=== PATIENT | male | born 1985 | race Caucasian/White ===

== ENCOUNTER → 2017-11-23 09:50 | Outpatient (CLI) | payer OTHER, SELFPAY ==
[2017-11-23 12:43] LABS: Anion Gap 7 (5-15); BUN 10 mg/dL (7-18); BUN/Creat Ratio 9.7 RATIO (10-20); Calcium,Total 9.2 mg/dL (8.5-10.1); Chloride 105 mmol/L (98-107); Cholesterol 210 mg/dL (200); Creatinine, Serum 1.03 mg/dL (0.70-1.30); EST Glomerular Filtration Rate 89 mL/min (>60); Est Glom Filt Rate - Afr Amer 108 mL/min (>60); Glucose 89 mg/dL (74-106); High Density Lipoprotein 35 mg/dL; Potassium 4.6 mmol/L (3.5-5.1); Sodium Level 139 mmol/L (136-145); Triglycerides 186 mg/dL; Very Low Density Lipoprotein 37 mg/dL (5-40)
== END ==
PROVIDERS: Family Provider Family Medicine; PCP Family Medicine; Visit Provider Family Medicine
DX: I10 Essential (primary) hypertension (principal)
CPT/HCPCS: 36415; 80048; 80061

== ENCOUNTER → 2018-12-19 | Outpatient (CLI) | payer OTHER, SELFPAY ==
[2015-11-01 14:53] VITALS: BMI 23.7
[2018-12-19 18:25] LABS: Anion Gap 11 (5-15); BUN 17 mg/dL (7-18); BUN/Creat Ratio 15.5 RATIO (10-20); Calcium,Total 8.8 mg/dL (8.5-10.1); Chloride 105 mmol/L (98-107); Cholesterol 201 mg/dL (200); EST Glomerular Filtration Rate 82 mL/min (>60); Est Glom Filt Rate - Afr Amer 99 mL/min (>60); Glucose 91 mg/dL (74-106); High Density Lipoprotein 32 mg/dL; Potassium 4.1 mmol/L (3.5-5.1); Sodium Level 142 mmol/L (136-145); Triglycerides 378 mg/dL; Very Low Density Lipoprotein 76 mg/dL (5-40)
== END | disposition home or self-care (01) ==
LOC: MFPLAB 16:40
PROVIDERS: Family Provider Family Medicine; PCP Family Medicine; Referring Provider Family Medicine; Visit Provider Family Medicine
DX: I10 Essential (primary) hypertension (principal); E78.5 Hyperlipidemia, unspecified
CPT/HCPCS: 36415; 80048; 80061

== ENCOUNTER → 2019-08-03 | Outpatient (CLI) | payer OTHER, SELFPAY ==
[2015-11-01 14:53] VITALS: BMI 23.7
[2019-08-03 12:30] LABS: Absolute Lymphocyte Count 1.72 X10^3/uL (0.83-4.51); Absolute Neutrophil Count 1.3 X10^3/uL (2.0-7.7); Basophil# 0.01 X10^3/uL; Basophil% 0.3 % (0-1); Eosinophil# 0.03 X10^3/uL; Eosinophils% 0.9 % (0-5); Hematocrit 47.4 % (40-54); Hemoglobin 15.9 g/dL (13.0-16.5); Lymphocyte # 1.72 X10^3/ul (4.0); Lymphocyte % 50.3 % (19-41); Mean Corp Hgb Conc 33.5 g/dL (32-36); Mean Corpuscular Hgb 29.3 pg (27.0-32.0); Mean Corpuscular Volume 87.3 fL (80-94); Mean Platelet Vol. 9.9 fl (6.2-12.0); Monocyte# 0.33 X10^3/uL; Monocyte% 9.6 % (0-10); NRBC Flagged by Analyzer 0 % (0-5); Neutrophil # 1.33 X10^3/uL (2.7-7.7); Neutrophil % 38.9 % (47-70); Platelet Count 239 K/mm3 (150-450); RBC Distribution Width CV 12.4 % (11.6-14.6); RBC Distribution Width SD 39.8 fl (35.1-43.9); Red Blood Count 5.43 M/mm3 (4.6-6.2); White Blood Count 3.4 K/mm3 (4.4-11.0)
[2019-08-03 12:44] LABS: Anion Gap 4 (5-15); BUN 12 mg/dL (7-18); BUN/Creat Ratio 12.8 RATIO (10-20); Calcium,Total 9.4 mg/dL (8.5-10.1); Chloride 106 mmol/L (98-107); Creatinine, Serum 0.94 mg/dL (0.70-1.30); EST Glomerular Filtration Rate 99 mL/min (>60); Est Glom Filt Rate - Afr Amer 120 mL/min (>60); Glucose 84 mg/dL (74-106); Potassium 4.4 mmol/L (3.5-5.1); Sodium Level 138 mmol/L (136-145)
== END | disposition home or self-care (01) ==
LOC: MFPLAB 10:01
PROVIDERS: PCP Family Medicine; Referring Provider Family Medicine; Visit Provider Family Medicine
DX: I10 Essential (primary) hypertension (principal); F32.9 Major depressive disorder, single episode, unspecified
CPT/HCPCS: 36415; 80048; 85025

== ENCOUNTER → 2020-07-14 10:13 | Outpatient (CLI) | payer OTHER, SELFPAY ==
[2015-11-01 14:53] VITALS: BMI 23.7
[2020-07-14 12:56] LABS: Anion Gap 5 (5-15); BUN 11 mg/dL (7-18); BUN/Creat Ratio 10.6 RATIO (10-20); Calcium,Total 9.2 mg/dL (8.5-10.1); Chloride 104 mmol/L (98-107); Cholesterol 230 mg/dL (200); Creatinine, Serum 1.04 mg/dL (0.70-1.30); EST Glomerular Filtration Rate 87 mL/min (>60); Est Glom Filt Rate - Afr Amer 105 mL/min (>60); Glucose 86 mg/dL (74-106); High Density Lipoprotein 37 mg/dL; Potassium 4.2 mmol/L (3.5-5.1); Sodium Level 137 mmol/L (136-145); Triglycerides 161 mg/dL; Very Low Density Lipoprotein 32 mg/dL (5-40)
== END ==
PROVIDERS: PCP Family Medicine; Referring Provider Family Medicine; Visit Provider Family Medicine
DX: I10 Essential (primary) hypertension (principal)
CPT/HCPCS: 36415; 80048; 80061

== ENCOUNTER → 2022-04-19 | Outpatient (CLI) | payer OTHER, SELFPAY ==
[2022-04-19 12:59] LABS: AST(SGOT) 19 U/L (15-37); Alanine Aminotransfer ALT/SGPT 38 U/L (16-61); Anion Gap 8 (5-15); BUN 12 mg/dL (7-18); BUN/Creat Ratio 12.4 RATIO (10-20); Calcium,Total 9.2 mg/dL (8.5-10.1); Chloride 105 mmol/L (98-107); Cholesterol 140 mg/dL (200); Creatinine, Serum 0.97 mg/dL (0.70-1.30); EST Glomerular Filtration Rate 93 mL/min (>60); Est Glom Filt Rate - Afr Amer 113 mL/min (>60); Glucose 97 mg/dL (74-106); High Density Lipoprotein 49 mg/dL; Potassium 4.2 mmol/L (3.5-5.1); Sodium Level 140 mmol/L (136-145); Triglycerides 118 mg/dL; Very Low Density Lipoprotein 24 mg/dL (5-40)
[2022-04-19 13:36] LABS: Microalbumin,Random Urine < 5.0 mg/L (NO RANGE EST.)
== END | disposition home or self-care (01) ==
PROVIDERS: PCP Family Medicine; Referring Provider Family Medicine; Visit Provider Family Medicine
DX: I10 Essential (primary) hypertension (principal); E78.5 Hyperlipidemia, unspecified
CPT/HCPCS: 36415; 80048; 80061; 82043; 82570; 84450; 84460

== ENCOUNTER → 2023-04-25 | Outpatient (CLI) | payer OTHER, SELFPAY ==
[2023-04-25 12:41] LABS: AST(SGOT) 21 U/L (15-37); Alanine Aminotransfer ALT/SGPT 38 U/L (16-61); Anion Gap 3 (5-15); BUN 13 mg/dL (7-18); BUN/Creat Ratio 13.6 RATIO (10-20); Calcium,Total 9.5 mg/dL (8.5-10.1); Chloride 104 mmol/L (98-107); Cholesterol 147 mg/dL (200); Creatinine, Serum 0.96 mg/dL (0.70-1.30); EST Glomerular Filtration Rate 94 mL/min (>60); Est Glom Filt Rate - Afr Amer 114 mL/min (>60); Glucose 95 mg/dL (74-106); High Density Lipoprotein 45 mg/dL; Potassium 4.5 mmol/L (3.5-5.1); Sodium Level 137 mmol/L (136-145); Triglycerides 192 mg/dL; Very Low Density Lipoprotein 38 mg/dL (5-40)
[2023-04-25 13:16] LABS: Microalbumin,Random Urine < 5.0 mg/L (NO RANGE EST.)
== END | disposition home or self-care (01) ==
LOC: MFPLAB 10:30
PROVIDERS: PCP Family Medicine; Visit Provider Family Medicine
DX: I10 Essential (primary) hypertension (principal); E78.5 Hyperlipidemia, unspecified
CPT/HCPCS: 36415; 80048; 80061; 82043; 82570; 84450; 84460

== ENCOUNTER 2023-06-17 05:52 | Day surgery (SDC) | payer OTHER, SELFPAY ==
[2023-06-17] MEDS: Lactated Ringers 1,000 ML 15 ML IV (06:37)
[2023-06-17 06:39] VITALS: BP 124/89; PULSE 81; RESP 16; TEMP 36.5; O2SAT 97; BMI 28.0
[2023-06-17] MEDS: Clindamycin 900 MG/50 ML BAG 75 MG IV (07:28)
--- NOTE | 2023-06-17 07:30 | LIP_PTH ---
PATIENT: MING AGUSTIN [place] [facility] [id number] AGE/SX: 38/M ROOM: RE06/17/[address]: Dr. Trey Yoon MD : 1985 BED: DIS: 06/17/2023 SPEC #: [id number] RECD: 06/17/23 11:06 STATUS: JENNIE ENRIQUEZJaylen #: [id number] OLAMIDE: 06/17/23 07:[address]: Trey Yoon DEPT: SURGICAL PATHOLOGY RECD BY: Nasrin Daniel ENTERED: 06/17/23 11:48 SP TYPE: LIPOMA OTHR DR: Dr. Zaida Lancaster MD Tissues: Soft tissues, NOS Procedures: Surgery Specimen Level III HEADER OPERATION: Excision lipoma right inner thigh PRE-OP DIAGNOSIS: Lipoma right inner thigh TISSUE SUBMITTED: Right inner thigh subcutaneous mass MICROSCOPIC DIAGNOSIS Soft tissue mass of right inner thigh, excision: Mature adipose tissue consistent with lipoma. AM:benson 06/21/2023 MICROSCOPIC DESCRIPTION Slides are reviewed. GROSS DESCRIPTION Received in fixative is one container labeled with the patient's name and designated right inner thigh mass. The specimen consists of an irregular fragment of yellow fatty tissue measuring 4.8 x 3.5 x 1.5 cm. Serial sections reveal yellow cut surfaces. No myxoid change or hemorrhage is identified. 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 / AM:benson 06/17/2023 TC:1 CPT: 05685
--- NOTE | 2023-06-17 07:33 | PCM.HP.BLA ---
History and Physical Date of Admission: 06/17/23 MR#: [id number] Acct: [id number] Name: MING FIGUEROA Rep #: [id number] : 1985 Provider: Dr. 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 Trey Yoon MD) Depression High cholesterol HTN (hypertension) Surgical History (Updated 05/17/23 @ 08:35 by Lazara Lagos) S/P arthroscopic knee surgery S/P hernia repair Family History (Updated 05/17/23 @ 08:36 by Lazara Lagos) Mother Breast cancer HypertensionGrandfather Bleeding disorder HypertensionGrandmother Breast cancer HypertensionUncle Cancer lung Social History (Updated 05/17/23 @ 08:36 by Lazara Lagos) Smoking Status: Never smoker alcohol intake: current HPI HPI HPI: Patient is a 37-year-old male who presents for thigh lipoma. He is referred from Dr. Lancaster. He states that he first noticed this issue about a month ago as he was simply rubbing his thigh. He denies any pain or symptoms. He raised his concern to Dr. Lancaster and she informed it was likely a lipoma and recommended he consider removal for the potential for growth and eventual discomfort. For his part, Mr. 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 He confirms that he has not had any prior such lesions and denies any drainage or redness from the present area of concern. Mr. Figueroa takes medications only for diagnoses of high blood pressure, high cholesterol, and depression. He does not have any prescriptions for blood thinners. There is no known history of allergies to local anesthetic. ROS General General: No weight change, appetite, fatigue, colon cancer, breast cancer or weakness HEENT HEENT: No difficulty swallowing, eye injury, eye surgery, swollen glands or hoarseness Endo Endocrine: No thyroid disease, diabetes mellitus, thyroid cancer, Hair loss, heat intolerance or cold intolerance Skin Skin: No rash or changing moles Breast Breast: No left breast lump, right breast lump, nipple discharge, breast pain, abnormal mammogram, abnormal US or breast enlargement Musc Musculoskeletal: No back problems, arthritis, rheumatoid arthritis, gout or joint pain Cardio Cardiovascular: No murmur, pacemaker, heart disease, atrial fibrillation, high blood pressure, heart attack, heart stent, palpitations, shortness of breat with exertion or chest pain Psych Psychiatric: No depression, anxiety or hearing voices Resp Respiratory: No shortness of breath, No sleep apnea, No cough, No COPD, No asthma, No emphysema and No wheezing Gastro Gastrointestinal: No abdominal pain, No nausea or vomiting, No diarrhea, No constipation, No blood in stool, No acid reflux, No hemorrhoids, No ulcers, No gallbladder problem and No black,tarry stools Sudhakar Hematologic: No blood thinners, No blood disorders, No bleeding, No anemia and No blood clots Neuro Neurologic: No system reviewed and no additional complaints, except as documented, No as per HPI, No abnormal gait, No abnormal hearing, No abnormal movements, No abnormal speech, No behavioral changes, No burning sensations, No confusion, No convulsions, No disequilibrium, No dizziness, No localized weakness, No frequent falls, No headache(s), No lack of coordination, No loss of vision, No memory loss, No numbness, No other visual disturbances, No radicular pain, No restless legs, No sensory deficit, No syncope, No tingling, No tremor(s), No weakness and No other Exam Const General: cooperative, healthy appearing, comfortable and no acute distress Orientation: alert, awake and oriented x3 Resp Effort & Inspection: normal respiratory effort Extrem Other: Right inner thigh soft, subcutaneous mass estimated at 4 cm in diameter by palpation. Ultrasound is applied to the area and patient has a circumscribed, hypoechoic area with some internal texture suggesting probable lipoma. This area is located just deep to the dermis and at its greatest depth extends only 1 cm. It measures approximately 3 x 4 cm. Assessment and Plan Assessment and Plan (1) Lipoma of right thigh: Status: Acute Comment: This is a 37-year-old male who presents for incidentally noted right thigh lipomatous mass that is presently asymptomatic. 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 On exam this is a very superficial, semimobile mass approximately 4 cm in diameter that is located on the inner posterior aspect of the proximal thigh. Given this sensitive location I have recommended we plan for excision under MAC sedation in the OR to maximize patient's comfort. 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 Mr. Figueroa wishes to get a little further through the harvest before he proceeds with this excision but plans to schedule today. Plan: Plan for excision of right thigh lipoma under MAC sedation at first mutually available date. I have examined the patient and the H&P has been reviewed. There are no clinical changes since date of exam. Procedure and post procedure expectations were reviewed. Patient and his spouse had a few questions regarding activity restrictions which were answered. Proceed to the operating room for excision of right thigh lipoma under MAC sedation.
[2023-06-17] MEDS: Bupivacaine 0.25% 30 ML Vial (07:47)
--- NOTE | 2023-06-17 08:06 | PCM.OPRPT ---
Report of Operation Date of Procedure: 06/17/23 Pre-Operative Diagnosis: Right inner thigh lipoma Post-Operative Diagnosis: Same Surgery/Procedure Performed:: Excision of right inner thigh subcutaneous mass Surgeon: Trey Yoon metal patternmaker apprentice: Julian Hernandez Type of Anesthesia: MAC/Supplemental Anesthesiologist: Yaakov Shelley Specimen's removed: Right thigh subcutaneous mass Drains: None Estimated Blood Loss (mL): 2 Description of Procedure: After appropriate identification the preoperative holding area patient was brought to the operating room where he was positioned in a supine position. There he was administered a local MAC. Preoperative antibiotics were infused. He was then repositioned frog-leg to the right and was prepped and draped in usual sterile fashion. A formal timeout followed to confirm both patient and procedure. After instilling local anesthetic (0.5% bupivacaine plain), I then made a transverse incision 3 cm long along the mid aspect of the patient's lipomatous mass. This was carried deeply through the tissue with use of electrocautery to maintain hemostasis as we proceeded. I then visualized the lipomatous subcutaneous mass and used a combination of sharp and blunt dissection to free this mass from the surrounding soft tissue. Selective electrocautery was used to maintain hemostasis. As the lipomatous mass was being elevated the more tenuous attachments were also divided with electrocautery. Mass was then completely extirpated and passed off the operative field for pathology. The resulting cavity was inspected for hemostasis and was found to be largely intact aside from a few isolated skin bleeders which were promptly addressed with electrocautery. The cavity was irrigated and then closed in layers. The deep dermal tissues was closed using 3-0 Vicryl and the skin was closed in a subcuticular fashion using 4-0 Monocryl. Dermabond was applied for a dressing and the patient's sedation was lightened and he was transferred to the PACU bed for his ongoing care. Complications None Procedures Integumentary 114x: [id number] Exc tr-ext b9+savita 2.1-3cm/<
--- NOTE | 2023-06-17 08:08 | DCINST_ITS ---
Discharge Instructions Diet Discharge Diet: No restrictions Activity Discharge Activity: May Shower May shower in (days): 1 Ice area for (Minutes): 20 Dressing / Incision Call your doctor if your incision/area has: Increased Pain/ Swelling, Increased Redness, Foul Smelling Discharge and Swelling at the incision site Call your doctor if you observe: Fever of 101 or Higher Remove Dressing in: do not remove dressing (Dermabond (surgical glue) expected to dissolve spontaneously within 7 to 10 days postop using regular showering) Cleanse incision/area with: Soap & Water Follow Up Care Please Follow Up With: Trey Yoon MD When: 2 weeks postop Test Results: Test results from this visit will be discussed in further detail at your follow- up appointment, if applicable. Discharge Plan Admission Primary Reason for Your Visit: Excision of right thigh mass Attending Provider: Trey Yoon Primary Care Provider: Zaida Lancaster Discharge Orders/Prescriptions Prescriptions: Continued rosuvastatin 10 mg tablet 10 mg PO QHS Patient Comments: take 1 tablet by mouth at bedtime lisinopril 10 mg tablet 10 mg PO DAILY Patient Comments: take 1 tablet by mouth once daily escitalopram oxalate 10 mg tablet 10 mg PO DAILY Patient Comments: take 1 tablet by mouth once daily Referrals / Follow Up: Zaida Lancaster MD [Primary Care Provider] - Disposition Disposition (needs filled in before D/C Order can be placed): Home, Self Care
[2023-06-17 08:13] VITALS: BP 105/69; BP 124/89; PULSE 78; RESP 16; TEMP 36.6; O2SAT 97
[2023-06-17 08:16] VITALS: BP 111/65; BP 124/89; PULSE 78; RESP 16; O2SAT 97
[2023-06-17 08:20] VITALS: BP 104/67; BP 124/89; PULSE 72; RESP 16; O2SAT 100
[2023-06-17 08:23] VITALS: BP 116/85; BP 124/89; PULSE 75; RESP 16; TEMP 36.6; O2SAT 100
[2023-06-17 08:37] VITALS: BP 124/89
== END 2023-06-17 08:59 | disposition home or self-care (01) ==
LOC: SDC 05:59 → AC 06:09
PROVIDERS: PCP Family Medicine; Referring Provider Surgery; Visit Provider Surgery
PROC: (CPT 27337; principal; 2023-06-17 07:15)
DX: D17.23 Benign lipomatous neoplasm of skin and subcutaneous tissue of right leg (principal); I10 Essential (primary) hypertension; F32.A Depression, unspecified; E78.00 Pure hypercholesterolemia, unspecified; Z79.899 Other long term (current) drug therapy
CPT/HCPCS: 27337; 00400; 88304; J7120; J2405

== ENCOUNTER 2023-10-24 10:00 | Outpatient (RCR) | payer OTHER, SELFPAY ==
--- NOTE | 2023-08-22 13:48 | HP.PTEVAL ---
Patient's Visit Information Visit Information Visit Information: MING AGUSTIN is a 38 year old M referred to Physical Therapy by Dr. Zaida Lancaster MD with a diagnosis of LEFT HAMSTRING STRAIN. Date of Evaluation: 08/22/23 Physical Therapist: Bret Watson, PT, Cert MDT, OCS Visit Plan Frequency: 2x /Week Duration: 6 Weeks Plan: PT INTERVETIONS JOSE LUIS EX'S, FELXABLITY ,ANR STRETCHING ,DLS ,POSTURAL EX'S ,MANUAL THERAPY AND MODALTIES Subjective Subjective: This 38 y/o male presents to physical therapy with left hamstring strain. Patient developed left hamstring pain `~ 6weeks . Initially patient had pain in back pain, then symptoms became worse in left hamstrings and glut. Patient has seen chiropractor and did some adjustment. Pain located left hamstrings and lateral knee. Aggravating factors sitting , bending, lifting ,standing increases low back pain and walking unbale to take a full stride. Patient has tingling in buttock . Patient had pain bending over such as putting on sock. Coughing/sneezing+ . Bowel/bladder -. Sleeping in recliner but in bed unable to lay flat. Patient has no injury or trauma. Patient has h/o back pain. Chiropractor did x-rays. Patient condition affects QOL and function/job demands. Patient goals to decrease pain. 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 Left Lower Extremity: Pain Intensity (Out of 10): 5 Pain Intensity Range: 10 Objective Objective: POSTURE: mild forward posture GAIT: reciprocal pattern slight decrease stride length left side NEURO: c/o paresthesia/tingling ,reflexes L3-4,L4-5,L5-S1 3/3 PALAPTION: unremarkable LUMBAR ROM: flexion mod loss pain ,extension WNL ,side glides WFL MMT: quads 4-/5 due to + ANR left side ,left hamstrings/hips ,ankle 4/ 5,right 4/5 Special Tests L/S Slump test left side: Positive L/S Slump test right side: Negative L/S Left Straight Leg Raise: Negative L/S Right Straight Leg Raise: Positive Lumbar Standing: Flexion - Mechanical Response: No effect Lumbar Standing: Flexion - Symptoms During Testing: Increases Lumbar Standing: Flexion - Symptoms After Testing: Worse Lumbar Standing: Extension - Mechanical Response: No effect Lumbar Standing: Extension - Symptoms During Testing: Decreases Lumbar Standing: Extension - Symptoms After Testing: No better Lumbar Standing: Right Side Glides - Mechanical Response: No effect Lumbar Standing: Right Side [place] - Symptoms During Testing: No effect Lumbar Standing: Right Side [place] - Symptoms After Testing: No effect Lumbar Standing: Left Side [place] - Mechanical Response: No effect Lumbar Standing: Left Side [place] - Symptoms During Testing: No effect Lumbar Standing: Left Side [place] - Symptoms After Testing: No effect Lumbar Lying: Flexion - Mechanical Response: No effect Lumbar Lying: Flexion - Symptoms During Testing: Increases Lumbar Lying: Flexion - Symptoms After Testing: No worse Lumbar Lying: Extension - Mechanical Response: No effect Lumbar Lying: Extension - Symptoms During Testing: Decreases Lumbar Lying: Extension - Symptoms After Testing: Better Balance/Special Test Scores Oswestry Low Back Score: 19 Goals Goal 1:: Patient to be I with HEP for back Goal Time Frame: 4-6 Weeks Goal 2:: Patient to improve posture/body mechanics 90% Goal Time Frame: 4-6 Weeks Goal 3:: 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 Goal Time Frame: 4-6 Weeks Goal 4:: Patient to resolve ANR left leg to improve ADLS and lifting Goal Time Frame: 4-6 Weeks Goal 5:: Patient to demonstrate 60% improvement with job demands and ADLS Goal Time Frame: 4-6 Weeks Goal 6:: Patient to improve back oswestry score by 5 points to improve QOL Goal Time Frame: 4-6 Weeks Rehabilitation Potential Physical Therapy Diagnosis: This patient has derangement above knee with disc involvement with + ANR pain with positioning and motion test worse with bending ,standing sitting affects ADL and housework tasks along david demands thus benefit from skilled PT Rehabilitation Potential: Good Anticipated Interventions Patient/Client Instruction: Educate patient on: Condition and Plan of Care For the Purpose of:: To decrease pain, To decrease swelling/inflammation, To improve muscle performance and motor function, To increase tolerance to activity/condition/position, To improve ability of physical actions for home/community/work/leisure, To improve health of tissue, To decrease soft tissue restriction and To increase flexibility/ROM Therapeutic Exercise to Include: Strength training, Body mechanics, Postural training, Flexibilty training, Dynamic Lumbar Stabilization and Jose Luis Exercises For the Purpose of:: To decrease pain, To increase ROM, To improve muscle performance and motor function, To improve ability to perform ADL's, To increase tolerance to activity/condition/position, To improve ability of physical actions for home/community/work/leisure, To improve health of tissue, To decrease soft tissue restriction, To increase flexibility/ROM and To reduce risk of recurrence Manual Therapy Techniques to Include: Mobilization Comment: LUMBAR For the Purpose of:: To decrease pain, To increase ROM, To improve health of tissue and To decrease soft tissue restriction TENS: Yes IF ES: Yes Cryotherapy (ice pack, ice massage): Yes Thermo therapy (hot pack): Yes Ultrasound (thermal/non thermal): Yes For the Purpose of:: To decrease pain, To increase ROM, To improve nutrient delivery to tissue, To increase oxygenation perfusion, To improve health of tissue and To decrease soft tissue restriction Text: Thank you for the opportunity to evaluate your patient. For Medicare and Medicare HMO plans, please review the plan of care and approve it. It will need to be FAXED BACK to us at [phone] for Medicare purposes. For Medicare only, by signing this I certify the plan of care. Please let me know if there are questions or concerns regarding this plan of care. Physician Signature: Date:
--- NOTE | 2024-02-03 13:37 | HP.PTDCSUM ---
Discharge Summary D/C summary: It has been my pleasure to treat MING AGUSTIN referred by Dr. Zaida Lancaster MD, with the diagnosis of LEFT HAMSTRING STRAIN for a total of 11 visit(s). Discharge Date: Please see the following information for a summary of their discharge status. 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 Thank you for the referral of this patient. Sincerely, Bret Watson, PT, Cert MDT, OCS Balance/Gait/Functional tests Balance/Special Test Scores Oswestry Low Back Score: 4 Improvement % Improvement: 80
== END 2023-10-24 19:00 | disposition home or self-care (01) ==
LOC: PT 10:00
PROVIDERS: PCP Family Medicine; Referring Provider Family Medicine; Visit Provider Family Medicine
DX: S76.312D Strain of muscle, fascia and tendon of the posterior muscle group at thigh level, left thigh, subsequent encounter (principal)
CPT/HCPCS: 97110; 97161; 97530

== ENCOUNTER 2024-03-22 05:47 | Day surgery (SDC) | payer OTHER, SELFPAY ==
--- NOTE | 2024-03-08 13:26 | EKG12_ITS ---
Test Reason : PRE OP Blood Pressure : / mmHG Vent. Rate : 091 BPM Atrial Rate : 091 BPM P-R Int : 146 ms QRS Dur : 082 ms QT Int : 356 ms P-R-T Axes : 057 033 047 degrees QTc Int : 437 ms Normal sinus rhythm Normal ECG Confirmed by MANI RUANO, BRENTON ([id number]), advertising editor MENA RAMIRES ([id number]) on 03/09/2024 10:48:41 AM Referred By: James Aleman Confirmed By:BRENTON SINGLETON MD
--- NOTE | 2024-03-08 13:33 | RAD_ITS ---
STUDY: X-RAY CHEST REASON FOR EXAM: Male, 38 years old. PREOP TECHNIQUE: PA and lateral views of the chest. COMPARISON: Comparison is made with prior study May 18, 2007. FINDINGS: The lungs are clear and expanded. There is no demonstrated pleural abnormality. Normal size heart. Normal mediastinum and marie. Normal visualized pulmonary arteries. Normal visualized aortic arch and descending thoracic aorta. Normal visualized thoracic spine. Normal visualized ribs, clavicles, and shoulders. There is no demonstrated abnormality of the visualized soft tissue structures of the upper abdomen. RAD/Chest PA and Lateral IMPRESSION: Normal x-ray examination of the chest. Electronically Signed: Taras Miguel MD at 14:52 EDT ,
[2024-03-08 14:41] LABS: Absolute Lymphocyte Count 1.53 X10^3/uL (0.83-4.51); Absolute Neutrophil Count 2.5 X10^3/uL (2.0-7.7); Basophil# 0.02 X10^3/uL; Basophil% 0.4 % (0-1); Eosinophils% 2.2 % (0-5); Hematocrit 42.9 % (40-54); Hemoglobin 14.4 g/dL (13.0-16.5); Lymphocyte # 1.53 X10^3/ul (0.83-4.51); Lymphocyte % 33.9 % (19-41); Mean Corp Hgb Conc 33.6 g/dL (32-36); Mean Corpuscular Hgb 28.8 pg (27.0-32.0); Mean Corpuscular Volume 85.8 fL (80-94); Mean Platelet Vol. 9.7 fl (6.2-12.0); Monocyte# 0.39 X10^3/uL; Monocyte% 8.6 % (0-10); NRBC Flagged by Analyzer 0 % (0-5); Neutrophil # 2.46 X10^3/uL (2.7-7.7); Neutrophil % 54.7 % (47-70); Platelet Count 225 K/mm3 (150-450); RBC Distribution Width SD 40.3 fl (35.1-43.9); White Blood Count 4.5 K/mm3 (4.4-11.0)
[2024-03-08 14:46] LABS: Partial Thromboplast Time 27.8 Seconds (24.1-36.2); Prothrombin Time (Protime)PT. 13.3 SECONDS (11.7-14.9)
[2024-03-08 14:56] LABS: Anion Gap 6 (5-15); BUN 12 mg/dL (7-18); BUN/Creat Ratio 11.7 RATIO (10-20); Calcium,Total 9.4 mg/dL (8.5-10.1); Chloride 105 mmol/L (98-107); Creatinine, Serum 1.03 mg/dL (0.70-1.30); EST Glomerular Filtration Rate 86 mL/min (>60); Est Glom Filt Rate - Afr Amer 104 mL/min (>60); Glucose 116 mg/dL (74-106); Potassium 3.9 mmol/L (3.5-5.1); Sodium Level 137 mmol/L (136-145)
[2024-03-22] VITALS (8 sets, daily range): BP systolic 116–126; BP diastolic 76–89; PULSE 76–96; RESP 16–18; TEMP 36.6–36.8; O2SAT 96–100; BMI 28.0
--- NOTE | 2024-03-22 06:30 | RAD_ITS ---
STUDY: X-RAY - LUMBAR SPINE REASON FOR EXAM: Male, 38 years old. L5-S1 LAMINOTOMY DISCECTOMY, POSS LAMINECTOMY, LEFT TECHNIQUE: 1 view(s) of the lumbar spine were obtained. COMPARISON: None FINDINGS: Fluoroscopy of the lumbar spine was utilized for underlying laminectomy and a single image cement for interpretation.. RAD/Spine 1 View Any Level IMPRESSION: Fluoroscopy during surgery. Electronically Signed: Joe Francis MD at 8:52 EDT ,
[2024-03-22] MEDS: Lactated Ringers 1,000 ML 15 ML IV (06:32)
--- NOTE | 2024-03-22 07:00 | OP.PCM_ITS ---
Report of Operation Date of Procedure: 03/22/24 Description of Surgical Findings:: REPORT OF OPERATION PREOPERATIVE DIAGNOSES: 1. Lumbar stenosis, L5-S1 with spondylosis. 2. Lumbar disc herniation L5-S1, LEFT. POSTOPERATIVE DIAGNOSES: 1. Lumbar stenosis, L5-S1 with spondylosis. 2. Lumbar disc herniation L5-S1, LEFT. PROCEDURE PERFORMED: 1. Bilateral L5-S1 Laminotomy, foraminotomy 2. Left L5-S1 discectomy. STATEMENT OF MEDICAL NECESSITY: The patient is a 38-year-old male with intractable back and leg pain. Image studies confirm above diagnosis. The patient has opted for operative intervention, understanding the risks to include, but not limited to infection, bleeding, damage to nerves, arteries, and veins, possibility of spinal fluid leak, nonunion, hardware failure, continued pain, need for further surgery, deep vein thrombosis, pulmonary embolism, heart attack, risk of stroke, or . DESCRIPTION OF PROCEDURE: The patient was identified in the preoperative holding area. There, he received the preoperative IV antibotics and then transferred to the operating suite. Once in the operating suite, after general endotracheal anesthesia was established, the patient was transferred to the [place] operating table in the prone position. All bony prominences were padded accordingly. The lumbar spine was prepped and draped in standard surgical fashion. Midline incision was made and taken down to the lumbodorsal fascia. This was divided and subperiosteal dissection taken down to the level of the bilateral L5-S1 facet joints. Deep retractors were placed. A bertha was used to thin the lamina and then a series of Kerrisons and rongeurs was used to perform a bilateral L5-S1 laminotomy and foraminotomy. The dura and nerve root were identified and retracted medially. A large subligamentous disc herniation was identified. A knife was used to perform an annulotomy at L5-S1 on the left and a large subligamentous disc was removed using pituitaries, any loose fragments were identified and removed and the wound was irrigated. Tissel was placed over the dura as a hemostatic agent. The fascia was closed with #1 Vicryl, subcutaneous with 2-0 Vicryl, skin was closed with 2-0 nylon. Sterile dressing was applied with 4 x 4, ABD, and tape. Sponge, instrument, and needle counts were correct at the end of the case. The patient was extubated, taken to PACU without incident. Surgeon: James Aleman Type of Anesthesia: General Estimated Blood Loss (mL): 20cc Fluids Replaced: 1700c Complications None Admit VTE Documentation VTE Present on Admission: No
--- NOTE | 2024-03-22 07:04 | PCM.PN.ORT ---
Subjective Subjective Seen and examined postop. Resting comfortably. Pain controlled. No complaints Objective Data Objective Data Vital Signs: Vital Signs Temp Pulse Resp BP Pulse Ox O2 Del Method 98 F 76 18 126/89 H 98 Room Air 03/22/24 06:33 03/22/24 06:33 03/22/24 06:33 03/22/24 06:33 03/22/24 06:33 03/22/24 06:33 Oxygen Delivery Method Room Air Weight: 207 lb 3.752 oz Body Mass Index (BMI) 28.0 Lab / Micro Data 03/08/24 13:47 03/08/24 13:47 Micro: Microbiology 03/08/24 13:47 Swab (Method) Nasal Screen MRSA/MSSA - Final Physical Exam Const alert, oriented x3 and no apparent distress General Appearance: cooperative, comfortable and well kempt HEENT normocephalic and head/scalp atraumatic Eyes EOMs intact bilaterally and conjunctivae normal Neck full ROM General: normal visual inspection Chest inspection of chest normal and palpation of chest normal Resp normal respiratory effort and normal air movement Cardio regular rate, regular rhythm and peripheral pulses 2+ throughout GI soft to palpation, non-tender and non-distended Back/Spine Back/Spine Narrative: Dressing clean dry and intact Cervical Spine: cervical ROM normal Thoracic Spine / Upper Back: normal to inspection Lumbar Spine / Lower Back: normal to inspection Extremity normal to inspection, full ROM, normal capillary refill, no clubbing, cyanosis or edema and no calf tenderness Skin no rashes or lesions noted General Skin Exam: no breakdown Neuro oriented x3, CN's II-XII intact bilaterally, moves all extremities, no focal motor deficits, no sensory deficits noted and deep tendon reflexes 2+ bilaterally Motor Exam: strength 5/5 throughout and muscle tone normal throughout Assessment & Plan Assessment/Plan (1) Lumbar disc herniation: PLAN: Okay to discharge See discharge instructions Follow-up with Dr. Aleman in 3 weeks
--- NOTE | 2024-03-22 07:30 | PCM.PRE.AN2 ---
ASA Classification* ASA Classification ASA Classification: 2 Assessment & Plan Anesthesia* Anesthesia Assessment Anesthesia Assessment: Discussed sedation and/or anesthesia options, risks, benefits, and alternatives with patient/parents/legal guardian/POA. Questions invited. The patient/parents/legal guardian/POA seems to understand and agrees to proceed with anesthesia plan. Reviewed the physical assessment, medical history, allergy history and patient home medications list prior to surgery/procedure/anesthetic and documented any changes. Performed airway and anesthesia risk assessments. Anesthesia Type Anesthesia Type: General (see written pre anesthesia record for full assessment) Anesthesia Focused Assessment* Temperature: 98 F Pulse Rate: 76 Blood Pressure: 126/89 Respiratory Rate: 18 Pulse Ox: 98 Airway Assessment Mouth opens: >3 cm Mallampati Score: II Focused Labs Anesthesia Preop lab: CBC WBC 4.5 K/mm3 (4.4-11.0) 03/08/24 13:47 RBC 5.00 M/mm3 (4.6-6.2) 03/08/24 13:47 Hgb 14.4 g/dL (13.0-16.5) 03/08/24 13:47 Hct 42.9 % (40-54) 03/08/24 13:47 Plt Count 225 K/mm3 (150-450) 03/08/24 13:47 CHEMISTRY Potassium 3.9 mmol/L (3.5-5.1) 03/08/24 13:47 Sodium 137 mmol/L (136-145) 03/08/24 13:47 BUN 12 mg/dL (7-18) 03/08/24 13:47 Creatinine 1.03 mg/dL (0.70-1.30) 03/08/24 13:47 Glucose 116 mg/dL (74-106) H 03/08/24 13:47 COAG PT 13.3 SECONDS (11.7-14.9) 03/08/24 13:47 Pre-Assessment Diagnosis/Proposed Procedure Planned Operative Procedure(s): (L) Lumbar 5 - Sacral 1 Laminotomy Discectomy, Possible Laminectomy Anesthesia History Anesthesia History - certified residential medication aide: Anesthesia History - certified residential medication aide Hx Hospitalization No 03/06/24 13:23 Any Problems With Anesthesia No 03/06/24 13:23 Cholinesterase deficiency No 03/06/24 13:23 You/Your Family Experience No 03/06/24 13:23 fever (hyperthermia) with Relationship Recent Exposure to Contagious No 03/22/24 06:33 Disease Does patient have nerve No 03/06/24 13:23 stimulator Patient instructed to have device shut off --Does patient have Pacemaker No 03/22/24 06:33 or ICD? When Was Last Pacemaker Check QUESTION #4 FULL TEXT: You/Your Family Experience fever (hyperthermia) with Anesthesia Last Oral Intake Last Oral intake: Last Oral Intake NPO since 22:00 03/22/24 06:33 Meds taken in AM with sips of Yes 03/22/24 06:33 water? Meds patient instructed to lisinopril, 03/22/24 06:33 take am of surgery escitalopram PONV PONV - certified residential medication aide: PONV - certified residential medication aide Female No 03/06/24 13:23 HX of Motion Sickness No 03/06/24 13:23 HX of N/V After Surgery No 03/06/24 13:23 Non-Smoker Yes 03/06/24 13:23 Duration of Surgery greater Yes 03/06/24 13:23 than 60 minutes Number of Risk Factors 2 03/06/24 13:23 PONV Score Moderate Risk 03/06/24 13:23 Height & Weight Height & Weight: Anesthesia: Height & Weight Height 6 ft 03/22/24 06:33 Weight: 94 kg 03/22/24 06:33 Body Mass Index (BMI) 28.0 03/22/24 06:33 Respiratory Assessment Respiratory Assessment - certified residential medication aide: Respiratory Tract Infection Hx - certified residential medication aide Hx Respiratory Tract Infection No 03/06/24 13:23 STOP Sleep Apnea STOP Sleep Apnea - certified residential medication aide: STOP Sleep Apnea - certified residential medication aide Hx Hypertension Yes: CONTROLLED WITH MED 03/06/24 13:23 Hx Sleep Apnea No 03/06/24 13:23 CPAP No 06/17/23 08:13 BIPAP Do you snore loudly (louder No 03/06/24 13:23 than talking or can be heard Do you often feel tired/ No 03/06/24 13:23 fatigued/ sleepy during daytime? Has anyone observed you stop No 03/06/24 13:23 breathing during sleep? STOP Results Negative 03/06/24 13:23 QUESTION #5 FULL TEXT : Do you snore loudly (louder than talking or can be heard through closed doors)? 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 Specify any problems Hx of Preganancy in last 3 N/A 03/06/24 13:23 Months Nurse Filling Out Transfusion NBUCHER 03/06/24 13:23 & Questions: Date: 03/06/24 03/06/24 13:23 Time: 13:24 03/06/24 13:23 Patient unable to answer at this time (ie. confused, unrespo /Reproduction History /Reproductive History - certified residential medication aide: /Reproductive Hx- certified residential medication aide Hx Now No 03/06/24 13:23 Gestational Age (in weeks): EDC: Hx Hx Para Hx Section SAB No 03/06/24 13:23 Active Medications Active Medications: Current Medications Generic Name Dose Route Start Last Admin Trade Name Freq PRN Reason Stop Dose Admin Clindamycin Phosphate 600 mg in 50 mls @ 100 mls/hr 03/22/24 07:30 Cleocin IV 03/22/24 07:59 PREOP ONE Lactated Ringer's 1,000 mls @ 15 mls/hr 03/22/24 06:15 03/22/24 06:32 IV 15 mls/hr .Q48H PATRICIA Administration PFSH Medical History Anxiety Alcohol use Migraine headache Vaso-vagal reaction Syncope Non-smoker Depression High cholesterol HTN (hypertension) Home Medications ?Medication ?Instructions ?Recorded ?Last Taken ?Type escitalopram oxalate 10 mg tablet 10 mg PO DAILY 05/17/23 03/22/24 History lisinopril 10 mg tablet 10 mg PO DAILY 05/17/23 03/22/24 History rosuvastatin 10 mg tablet 10 mg PO QHS 05/17/23 03/21/24 History hydrocodone-acetaminophen 5-325mg 1 tab PO Q6H 7 days #28 tabs 03/22/24 Unknown Rx 5mg-325mg Allergy/AdvReac Type Severity Reaction Status Date / Time amoxicillin Allergy Mild Rash Verified 03/22/24 06:30 Family History Mother Breast cancer Hypertension Grandfather Bleeding disorder Hypertension Grandmother Breast cancer Hypertension Uncle Cancer lung Surgical History S/P excision of lipoma S/P hernia repair S/P arthroscopic knee surgery Social History Smoking Status: Never smoker alcohol intake: current Review of Systems (Anesthesia) ROS Narrative System reviewed and no additional complaints, except as documented.
[2024-03-22] MEDS: Clindamycin 600 MG/50 ML BAG 100 MG IV (07:35)
[2024-03-22] MEDS: THROMBIN (RECOMBINANT) 20,000 UNIT VIAL 20000 UNIT TOPICAL (08:20)
[2024-03-22] MEDS: Bupivacaine 0.25% 30 ML Vial (09:26)
--- NOTE | 2024-03-22 09:50 | PCM.POST.ANE ---
Anesthesia: Postop Eval I Current Vital Signs Temperature: 98.2 F Pulse Rate: 96 Blood Pressure: 116/81 Respiratory Rate: 16 Pulse Ox: 100 Oxygen Delivery Method: Room Air Assessment Airway patent: Yes Spontaneous unlabored respirations: Yes Mental status: Awake and Calm nausea: No Vomiting: No Anesthesia Complication: No Fluid Hydration Crystalloid volume administer (ml): 1,700 Total IV fluid infused: 1,700 Progress Note Anesthesia document: Postop Eval 1 completed: Yes
--- NOTE | 2024-03-22 10:20 | POSTOPAN2_ITS ---
Anesthesia Postop Eval I Sum Postop Eval Completion status Anesthesia document: Postop Eval 1 completed: Yes Anesthesia Postop Eval I Summary Anesthesia Postop Eval I Summary: Anesthesia Postop Eval I: Assessment Summary Airway patent Yes 03/22/24 09:58 PULP PRESS [email or web address].[email or web address] Spontaneous unlabored Yes 03/22/24 09:58 PULP PRESS TENDER.GDOTT respirations Mental status Awake,Calm 03/22/24 09:58 PULP PRESS TENDER.GDOTT nausea No 03/22/24 09:58 PULP PRESS TENDER.GDOTT Vomiting No 03/22/24 09:58 PULP PRESS TENDER.GDOTT Anesthesia Postop Eval I: Fluid Summary Crystalloid volume administer 1,700 03/22/24 09:58 PULP PRESS TENDER.GDOTT (ml) Colloids volume administered ( ml) Blood Product volume administered (ml) Total IV fluid infused 1,700 03/22/24 09:58 PULP PRESS TENDER.GDOTT Anesthesia Postop Eval I: Summary Notes Anesthesia Complication No 03/22/24 09:58 PULP PRESS TENDER.GDOTT Anesthesia Complication Comment: Post-operative progress note Anesthesia: Postop Eval II Evaluation Mental status: Awake Pain Level: 0 nausea: No Vomiting: No
--- NOTE | 2024-03-22 10:20 | PCM.POSTANE2 ---
Anesthesia Postop Eval I Sum Postop Eval Completion status Anesthesia document: Postop Eval 1 completed: Yes Anesthesia Postop Eval I Summary Anesthesia Postop Eval I Summary: Anesthesia Postop Eval I: Assessment Summary Airway patent Yes 03/22/24 09:58 MARBLE INSTALLER SUPERVISOR.GDOTT Spontaneous unlabored Yes 03/22/24 09:58 MARBLE INSTALLER SUPERVISOR.GDOTT respirations Mental status Awake,Calm 03/22/24 09:58 MARBLE INSTALLER SUPERVISOR.GDOTT nausea No 03/22/24 09:58 MARBLE INSTALLER SUPERVISOR.GDOTT Vomiting No 03/22/24 09:58 MARBLE INSTALLER SUPERVISOR.GDOTT Anesthesia Postop Eval I: Fluid Summary Crystalloid volume administer 1,700 03/22/24 09:58 MARBLE INSTALLER SUPERVISOR.GDOTT (ml) Colloids volume administered ( ml) Blood Product volume administered (ml) Total IV fluid infused 1,700 03/22/24 09:58 MARBLE INSTALLER SUPERVISOR.GDOTT Anesthesia Postop Eval I: Summary Notes Anesthesia Complication No 03/22/24 09:58 MARBLE INSTALLER SUPERVISOR.GDOTT Anesthesia Complication Comment: Post-operative progress note Anesthesia: Postop Eval II Evaluation Mental status: Awake Pain Level: 0 nausea: No Vomiting: No
[2024-03-22] MEDS: HYDROcodone Bitartrate/Apap 5/325 Tablet PO (10:41)
== END 2024-03-22 11:40 | disposition home or self-care (01) ==
LOC: SDC 05:49 → AC 05:49
PROVIDERS: PCP Family Medicine; Referring Provider Orthopaedic Surgery; Visit Provider Orthopaedic Surgery
PROC: (CPT 63030; principal; 2024-03-22 07:00)
DX: M47.817 Spondylosis without myelopathy or radiculopathy, lumbosacral region (principal); M48.061 Spinal stenosis, lumbar region without neurogenic claudication; M51.27 Other intervertebral disc displacement, lumbosacral region; G89.29 Other chronic pain; I10 Essential (primary) hypertension; E78.00 Pure hypercholesterolemia, unspecified; G47.00 Insomnia, unspecified; Z88.0 Allergy status to penicillin; Z79.899 Other long term (current) drug therapy
CPT/HCPCS: 63030; 00630; 36415; 71046; 72020; 76000; 80048; 85025; 85610; 85730; 87081; 93005; J7120; J2405

== ENCOUNTER 2024-04-05 08:38 | Day surgery (SDC) | payer OTHER, SELFPAY ==
[2024-04-05] VITALS (10 sets, daily range): BP systolic 99–127; BP diastolic 62–86; PULSE 72–107; RESP 16–18; TEMP 36.2–37.3; O2SAT 93–100; BMI 27.1
[2024-04-05] MEDS: Lactated Ringers 1,000 ML 15 ML IV ×2 (09:00→12:34)
--- NOTE | 2024-04-05 09:00 | OP.PCM_ITS ---
Report of Operation Date of Procedure: 04/05/24 Pre-Operative Diagnosis: 1. Delayed wound healing, lumbar Post-Operative Diagnosis: 1. Delayed wound healing, lumbar Surgery/Procedure Performed:: 1. Lumbar irrigation, debridement 2. Lumbar wound exploration 3. Primary closure STATEMENT OF MEDICAL NECESSITY: The patient is a 38-year-old male who presented with persistent wound drainage 2 weeks status post discectomy surgery. The patient failed conservative treatment with dressing changes and antibiotics. The patient opted for operative intervention, understanding the risks to include, but not limited to infection, bleeding, damage to nerves, arteries, and veins, possibility of spinal fluid leak, continued pain, need for further surgery, deep vein thrombosis, pulmonary embolism, heart attack, risk of stroke, or . DESCRIPTION OF PROCEDURE: The patient was identified in the preoperative holding area. There, he received the preoperative IV antibotics and was then transferred to the operating suite. Once in the operating suite, after general endotracheal anesthesia was established, the patient was transferred to the [facility] operating table in the prone position. All bony prominences were padded accordingly. The lumbar spine was prepped and draped in standard surgical fashion. The previous midline incision was reopened and taken down to the lumbodorsal fascia. A moderate amount of serosanguineous fluid was encountered and cultured. The wound was then thoroughly irrigated and the fascia was inspected. The fascia closure was found to be intact. The fascia was divided and deep retractors were placed. No significant fluid or necrotic tissue was encountered. A second set of cultures was taken deep to the fascia. The incision was then thoroughly irrigated again. Tissel was placed over the dura as a hemostatic agent. The fascia was closed with #1 Vicryl, subcutaneous with 2-0 Vicryl, skin was closed with 2-0 nylon. Sterile dressing was applied with 4 x 4, ABD, and tape. Sponge, instrument, and needle counts were correct at the end of the case. The patient was extubated, taken to PACU without incident. Surgeon: James Aleman Type of Anesthesia: General Estimated Blood Loss (mL): 10cc Fluids Replaced: 800cc Complications None Admit VTE Documentation VTE Present on Admission: No
--- NOTE | 2024-04-05 09:00 | PCM.PN.ORT ---
Subjective Subjective Seen and examined postop. Resting comfortably. Pain controlled. No complaints Physical Exam Const alert, oriented x3 and no apparent distress General Appearance: cooperative, comfortable and well kempt HEENT normocephalic and head/scalp atraumatic Eyes EOMs intact bilaterally and conjunctivae normal Neck full ROM General: normal visual inspection Chest inspection of chest normal and palpation of chest normal Resp normal respiratory effort and normal air movement Cardio regular rate, regular rhythm and peripheral pulses 2+ throughout GI soft to palpation, non-tender and non-distended Back/Spine Back/Spine Narrative: Dressing clean dry and intact Cervical Spine: cervical ROM normal Thoracic Spine / Upper Back: normal to inspection Lumbar Spine / Lower Back: normal to inspection Extremity normal to inspection, full ROM, normal capillary refill, no clubbing, cyanosis or edema and no calf tenderness Skin no rashes or lesions noted General Skin Exam: no breakdown Neuro oriented x3, CN's II-XII intact bilaterally, moves all extremities, no focal motor deficits, no sensory deficits noted and deep tendon reflexes 2+ bilaterally Motor Exam: strength 5/5 throughout and muscle tone normal throughout Assessment & Plan Assessment/Plan (1) Delayed surgical wound healing: PLAN: Okay to discharge home See orders Follow-up with Dr. Aleman as instructed
--- NOTE | 2024-04-05 09:10 | PRE.ANES_ITS ---
ASA Classification* ASA Classification ASA Classification: 2 Assessment & Plan Anesthesia* Anesthesia Assessment Anesthesia Assessment: Discussed sedation and/or anesthesia options, risks, benefits, and alternatives with patient/parents/legal guardian/POA. Questions invited. The patient/parents/legal guardian/POA seems to understand and agrees to proceed with anesthesia plan. Reviewed the physical assessment, medical history, allergy history and patient home medications list prior to surgery/procedure/anesthetic and documented any changes. Performed airway and anesthesia risk assessments. Anesthesia Type Anesthesia Type: General Anesthesia Focused Assessment* Temperature: 97.5 F Pulse Rate: 88 Blood Pressure: 127/86 Respiratory Rate: 16 Pulse Ox: 100 Airway Assessment Mouth opens: >3 cm Mallampati Score: II Focused Labs Anesthesia Preop lab: CBC WBC 4.5 K/mm3 (4.4-11.0) 03/08/24 13:47 RBC 5.00 M/mm3 (4.6-6.2) 03/08/24 13:47 Hgb 14.4 g/dL (13.0-16.5) 03/08/24 13:47 Hct 42.9 % (40-54) 03/08/24 13:47 Plt Count 225 K/mm3 (150-450) 03/08/24 13:47 CHEMISTRY Potassium 3.9 mmol/L (3.5-5.1) 03/08/24 13:47 Sodium 137 mmol/L (136-145) 03/08/24 13:47 BUN 12 mg/dL (7-18) 03/08/24 13:47 Creatinine 1.03 mg/dL (0.70-1.30) 03/08/24 13:47 Glucose 116 mg/dL (74-106) H 03/08/24 13:47 COAG PT 13.3 SECONDS (11.7-14.9) 03/08/24 13:47 Pre-Assessment Diagnosis/Proposed Procedure Planned Operative Procedure(s): Lumbar I&D wound and primary closure Anesthesia History Anesthesia History - information specialist: Anesthesia History - information specialist Hx Hospitalization No 04/03/24 08:11 Any Problems With Anesthesia No 04/03/24 08:11 Cholinesterase deficiency No 04/03/24 08:11 You/Your Family Experience No 04/03/24 08:11 fever (hyperthermia) with Relationship Recent Exposure to Contagious No 04/05/24 08:58 Disease Does patient have nerve No 04/03/24 08:11 stimulator Patient instructed to have device shut off --Does patient have Pacemaker No 04/05/24 08:58 or ICD? When Was Last Pacemaker Check QUESTION #4 FULL TEXT: You/Your Family Experience fever (hyperthermia) with Anesthesia Last Oral Intake Last Oral intake: Last Oral Intake NPO since 20:00 04/05/24 08:58 Meds taken in AM with sips of Yes 04/05/24 08:58 water? Meds patient instructed to take am of surgery PONV PONV - information specialist: PONV - information specialist Female No 04/03/24 08:11 HX of Motion Sickness No 04/03/24 08:11 HX of N/V After Surgery No 04/03/24 08:11 Non-Smoker Yes 04/03/24 08:11 Duration of Surgery greater No 04/03/24 08:11 than 60 minutes Number of Risk Factors 1 04/03/24 08:11 PONV Score Low Risk 04/03/24 08:11 Height & Weight Height & Weight: Anesthesia: Height & Weight Height 6 ft 04/05/24 08:58 Weight: 91 kg 04/05/24 08:58 Body Mass Index (BMI) 27.1 04/05/24 08:58 Respiratory Assessment Respiratory Assessment - information specialist: Respiratory Tract Infection Hx - information specialist Hx Respiratory Tract Infection No 04/03/24 08:11 STOP Sleep Apnea STOP Sleep Apnea - information specialist: STOP Sleep Apnea - information specialist Hx Hypertension Yes: controlled with meds 04/03/24 08:11 Hx Sleep Apnea No 04/03/24 08:11 CPAP No 03/22/24 09:50 BIPAP Do you snore loudly (louder No 04/03/24 08:11 than talking or can be heard Do you often feel tired/ No 04/03/24 08:11 fatigued/ sleepy during daytime? Has anyone observed you stop No 04/03/24 08:11 breathing during sleep? STOP Results Negative 04/03/24 08:11 QUESTION #5 FULL TEXT : Do you snore loudly (louder than talking or can be heard through closed doors)? 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 Specify any problems Hx of Preganancy in last 3 N/A 04/03/24 08:11 Months Nurse Filling Out Transfusion [email or web address] 04/03/24 08:11 & Questions: Date: 04/03/24 04/03/24 08:11 Time: 08:14 04/03/24 08:11 Patient unable to answer at this time (ie. confused, unrespo /Reproduction History /Reproductive History - information specialist: /Reproductive Hx- information specialist Hx Now Gestational Age (in weeks): EDC: Hx Hx Para Hx Section SAB No 03/06/24 13:23 Active Medications Active Medications: Current Medications Generic Name Dose Route Start Last Admin Trade Name Freq PRN Reason Stop Dose Admin Lactated Ringer's 1,000 mls @ 15 mls/hr 04/05/24 09:00 04/05/24 09:00 IV 15 mls/hr .Q48H PATRICIA Administration Clindamycin Phosphate 900 mg in 50 mls @ 75 mls/hr 04/05/24 08:55 Cleocin IV 04/05/24 09:34 X1 ONE PFSH Medical History Open wound Anxiety Alcohol use Migraine headache Vaso-vagal reaction Syncope Non-smoker Depression High cholesterol HTN (hypertension) Home Medications ?Medication ?Instructions ?Recorded ?Last Taken ?Type escitalopram oxalate 10 mg tablet 10 mg PO DAILY 05/17/23 04/05/24 History lisinopril 10 mg tablet 10 mg PO DAILY 05/17/23 04/05/24 History rosuvastatin 10 mg tablet 10 mg PO QHS 05/17/23 03/21/24 History sulfamethoxazole 800 1 tab PO BID 04/03/24 Unknown History mg-trimethoprim 160 mg tablet hydrocodone-acetaminophen 5-325mg 1 tab PO Q6H 7 days #28 tabs 04/05/24 Unknown Rx 5mg-325mg Allergy/AdvReac Type Severity Reaction Status Date / Time amoxicillin Allergy Mild Rash Verified 04/05/24 08:58 Family History Mother Breast cancer Hypertension Grandfather Bleeding disorder Hypertension Grandmother Breast cancer Hypertension Uncle Cancer lung Surgical History S/P excision of lipoma S/P hernia repair S/P arthroscopic knee surgery Social History Smoking Status: Never smoker alcohol intake: current Review of Systems (Anesthesia) ROS Narrative System reviewed and no additional complaints, except as documented.
[2024-04-05] MEDS: Clindamycin 900 MG/50 ML BAG 75 MG IV (10:58)
[2024-04-05] MEDS: Lidocaine 1% (30 ml sdv) 30 ML Vial (11:56)
--- NOTE | 2024-04-05 12:12 | PCM.POST.ANE ---
Anesthesia: Postop Eval I Current Vital Signs Temperature: 99.1 F Pulse Rate: 107 Blood Pressure: 127/62 Respiratory Rate: 18 Pulse Ox: 93 Assessment Airway patent: Yes Spontaneous unlabored respirations: Yes nausea: No Vomiting: No Anesthesia Complication: No Fluid Hydration Crystalloid volume administer (ml): 800 Total IV fluid infused: 800 Progress Note Anesthesia document: Postop Eval 1 completed: Yes
--- NOTE | 2024-04-05 12:23 | POSTOPAN2_ITS ---
Anesthesia Postop Eval I Sum Postop Eval Completion status Anesthesia document: Postop Eval 1 completed: Yes Anesthesia Postop Eval I Summary Anesthesia Postop Eval I Summary: Anesthesia Postop Eval I: Assessment Summary Airway patent Yes 04/05/24 12:12 NET APPLICATIONS DEVELOPER.CSIR Spontaneous unlabored Yes 04/05/24 12:12 NET APPLICATIONS DEVELOPER.CSIR respirations Mental status nausea No 04/05/24 12:12 NET APPLICATIONS DEVELOPER.CSIR Vomiting No 04/05/24 12:12 NET APPLICATIONS DEVELOPER.CSIR Anesthesia Postop Eval I: Fluid Summary Crystalloid volume administer 800 04/05/24 12:12 NET APPLICATIONS DEVELOPER.CSIR (ml) Colloids volume administered ( ml) Blood Product volume administered (ml) Total IV fluid infused 800 04/05/24 12:12 NET APPLICATIONS DEVELOPER.CSIR Anesthesia Postop Eval I: Summary Notes Anesthesia Complication No 04/05/24 12:12 NET APPLICATIONS DEVELOPER.CSIR Anesthesia Complication Comment: Post-operative progress note Anesthesia: Postop Eval II Evaluation Mental status: Awake Pain Level: 0 nausea: No Vomiting: No
--- NOTE | 2024-04-05 12:23 | PCM.POSTANE2 ---
Anesthesia Postop Eval I Sum Postop Eval Completion status Anesthesia document: Postop Eval 1 completed: Yes Anesthesia Postop Eval I Summary Anesthesia Postop Eval I Summary: Anesthesia Postop Eval I: Assessment Summary Airway patent Yes 04/05/24 12:12 NITRO WORKER.CSIR Spontaneous unlabored Yes 04/05/24 12:12 NITRO WORKER.CSIR respirations Mental status nausea No 04/05/24 12:12 NITRO WORKER.CSIR Vomiting No 04/05/24 12:12 NITRO WORKER.CSIR Anesthesia Postop Eval I: Fluid Summary Crystalloid volume administer 800 04/05/24 12:12 NITRO WORKER.CSIR (ml) Colloids volume administered ( ml) Blood Product volume administered (ml) Total IV fluid infused 800 04/05/24 12:12 NITRO WORKER.CSIR Anesthesia Postop Eval I: Summary Notes Anesthesia Complication No 04/05/24 12:12 NITRO WORKER.CSIR Anesthesia Complication Comment: Post-operative progress note Anesthesia: Postop Eval II Evaluation Mental status: Awake Pain Level: 0 nausea: No Vomiting: No
== END 2024-04-05 13:41 | disposition home or self-care (01) ==
LOC: SDC 08:38 → AC 08:39
PROVIDERS: PCP Family Medicine; Referring Provider Orthopaedic Surgery; Visit Provider Orthopaedic Surgery
PROC: (CPT 10140; principal; 2024-04-05 10:20)
DX: L76.34 Postprocedural seroma of skin and subcutaneous tissue following other procedure (principal); M51.16 Intervertebral disc disorders with radiculopathy, lumbar region; M51.27 Other intervertebral disc displacement, lumbosacral region; M48.061 Spinal stenosis, lumbar region without neurogenic claudication; M47.896 Other spondylosis, lumbar region; I10 Essential (primary) hypertension; F32.A Depression, unspecified; F41.9 Anxiety disorder, unspecified; E66.3 Overweight; E78.00 Pure hypercholesterolemia, unspecified; G47.00 Insomnia, unspecified; Z68.29 Body mass index [BMI] 29.0-29.9, adult; Z88.0 Allergy status to penicillin; Z79.899 Other long term (current) drug therapy; Z98.890 Other specified postprocedural states
CPT/HCPCS: 10140; 00300; 87070; 87075; 87077; 87205; J7120; J2405

== ENCOUNTER → 2024-05-04 | Outpatient (CLI) | payer OTHER, SELFPAY ==
[2024-05-04 18:06] LABS: AST(SGOT) 28 U/L (15-37); Alanine Aminotransfer ALT/SGPT 39 U/L (16-61); Anion Gap 5 (5-15); BUN 11 mg/dL (7-18); BUN/Creat Ratio 11.8 RATIO (10-20); Calcium,Total 9.5 mg/dL (8.5-10.1); Chloride 105 mmol/L (98-107); Cholesterol 147 mg/dL (200); Creatinine, Serum 0.94 mg/dL (0.70-1.30); EST Glomerular Filtration Rate 96 mL/min (>60); Est Glom Filt Rate - Afr Amer 116 mL/min (>60); Glucose 85 mg/dL (74-106); High Density Lipoprotein 47 mg/dL; Potassium 4.4 mmol/L (3.5-5.1); Sodium Level 137 mmol/L (136-145); Triglycerides 127 mg/dL; Very Low Density Lipoprotein 25 mg/dL (5-40)
[2024-05-04 18:30] LABS: Microalbumin,Random Urine < 5.0 mg/L (NO RANGE EST.)
== END | disposition home or self-care (01) ==
LOC: MTLAB 14:08
PROVIDERS: PCP Family Medicine; Referring Provider Family Medicine; Visit Provider Family Medicine
DX: E78.5 Hyperlipidemia, unspecified (principal); I10 Essential (primary) hypertension
CPT/HCPCS: 36415; 80048; 80061; 82043; 82570; 84450; 84460

== ENCOUNTER → 2024-11-02 | Outpatient (CLI) | payer OTHER, SELFPAY ==
[2024-11-02 18:05] LABS: ALB/GLOB Ratio 1.8 RATIO (0.9-2.4); AST(SGOT) 29 U/L (<=37); Alanine Aminotransfer ALT/SGPT 31 U/L (<=46); Albumin, Serum 4.6 g/dL (3.5-5.0); Alkaline Phosphatase 75 U/L (40-129); Anion Gap 12 (5-15); BUN 15 mg/dL (4-19); BUN/Creat Ratio 14.1 RATIO (10-20); Calcium,Total 9.6 mg/dL (7.6-11.0); Carbon Dioxide 22.2 mmol/L (21.0-32.0); Chloride 103 mmol/L (98-108); Cholesterol 147 mg/dL (<=200); Creatinine, Serum 1.05 mg/dL (0.70-1.20); EST Glomerular Filtration Rate 93 (>60); Globulin 2.5 g/dL (2.2-4.2); Glucose 95 mg/dL (70-99); High Density Lipoprotein 37 mg/dL; Low Density Lipoprotein Calc. 63 mg/dL; Potassium 3.9 mmol/L (3.3-5.1); Protein, Total 7.1 g/dL (5.9-8.4); Sodium Level 137 mmol/L (133-145); Total Bilirubin 0.41 mg/dL (0.00-1.30); Triglycerides 233 mg/dL; Very Low Density Lipoprotein 47 mg/dL (5-40); cholesterol:hdl ratio screen 3.95
== END | disposition home or self-care (01) ==
LOC: MTLAB 14:19
PROVIDERS: PCP Family Medicine; Referring Provider Family Medicine; Visit Provider Family Medicine
DX: I10 Essential (primary) hypertension (principal)
CPT/HCPCS: 36415; 80053; 80061

== ENCOUNTER → 2025-05-27 | Outpatient (CLI) | payer OTHER, SELFPAY ==
--- OUTSIDE RECORDS SUMMARY | 2025-05-27 07:05 | XMS RPT_ITS | CCD ---
Author Organization [facility] Care Team Providers Care Intellectual Property Legal Assistant Name Role Phone Zaida Lancaster Primary Care Provider JON FINCH Referring Unavailable LATISHALLIFF, ZAIDA FLYNN Primary Care Unavailable JON FINCH Referring Unavailable GENARO WORRELL Attending Unavailable JOLLIFF, ZAIDA GEE Primary Care Unavailable JON FINCH Referring Unavailable JOLLIFF, ZAIDA GEE Primary Care Unavailable JON FINCH Attending Unavailable ARELIS, ZAIDA FLYNN Referring Unavailable JOLLIFF, ZAIDA GEE Primary Care Unavailable Latishalliff, Zaida Gee Primary Care Provider Dr. Zaida Lancaster Primary Care Provider [phone] Dr. Zaida Lancaster Referring Provider [phone] Dr. Trey Yoon Attending Provider [phone] Dr. Trey Yoon Referring Provider Dr. Trey Yoon Other Provider [phone] Jolliff, Zaida S Primary Care Unavailable James Aleman Attending Unavailable James Aleman Referring Unavailable James Aleman Attending Unavailable James Aleman Referring Unavailable Jolliff, Zaida S Primary Care Unavailable Jolliff, Zaida S Attending Unavailable Jolliff, Zaida S Referring Unavailable Jolliff, Zaida S Primary Care Unavailable Jolliff, Zaida S Primary Care Unavailable Corwin Foss Attending Unavailable Corwin Foss Referring Unavailable Chuyita Sheffield Attending Unavailable Jolliff, Zaida S Referring Unavailable Jolliff, Zaida S Primary Care Unavailable Jolliff, Zaida S Primary Care Unavailable Willa, Maicol Attending Unavailable Jolliff, Zaida S Primary Care Unavailable AlemanJulian bazanrey Referring Unavailable Willa, Maicol Attending Unavailable Allergies Allergy Classification Reported Allergen(s) Allergy Type Date of Onset Reaction(s) Facility (8 sources) Amoxicillin; Translations: [AMOXICILLIN] Drug Allergy 06-18-2022 [facility] (1 source) Amoxicillin Drug Allergy 09-14-2024 [facility] Repository Medications Current Medications Medication Drug Class(es) Dates Sig (Normalized) Sig (Original) benoxinate hydrochloride 4 mg/ml / fluorescein sodium 2.5 mg/ml ophthalmic solution (1 source) Diagnostic Dye Start: 10-15-2022 End: 10-26-2022 fluorescein-benoxi boo 0.25-0.4 % 1 Drop (FLURESS) escitalopram 10 mg oral tablet (6 sources) Serotonin Reuptake Inhibitor Start: 05-17-2023 take 10 mg by mouth once daily Escitalopram Oxalate Active 10 MG PO DAILY May 17, 2023 12:00am take 1 tablet by mouth once sabrina y escitalopram oxalate (LEXAPRO) 10 mg tablet Take 10 mg by mouth once daily. 0 Active Comment on above: Take 10 mg by mouth once daily. iv contrast (will be provided with radiology test) (1 source) Start: End: inject 1 dose intravenously once iv contrast (will be provided with radiology test) Indications: Diplopia , Binocular vision disorder with diplopia CTA Head/Neck WO/W No IV access, insert saline lock prior to the sedation, infusion, injection for imaging exam. Discontinue saline lock post exam. If Pt. has a central line or IVAD, may access for administration according to line specific nursing protocol. Once exam is complete flush line and de-access according to line specific nursing protocol in the CT contrast administration guidelines link. 1 Each 0 06/18/2022 06/19/2022 Active Comment on above: CTA Head/Neck WO/W N o IV access, insert saline lock prior to the sedation, infusion, injection for imaging exam. Discontinue saline lock post exam. If Pt. has a central line or IVAD, may access for administration according to line specific nursing protocol. Once exam is complete flush line and de-access according to line specific nursing protocol in the CT contrast administration guidelines link. lisinopril 10 mg oral tablet (6 sources) Angiotensin Converting Enzyme Inhibitor Start: take 10 mg by mouth once daily Lisinopril Active 10 MG PO DAILY May 17, 2023 12:00am take 10 mg by mouth once daily L ISINOPRIL ORAL Take 10 mg by mouth once daily. 0 Active Comment on above: Take 10 mg by mouth once daily. proparacaine hydrochloride 5 mg/ml ophthalmic solution (1 source) Local Anesthetic Start: 3 End: 3 proparacaine 0.5 % 1 Drop (ALCAINE) rosuvastatin calcium 10 mg oral tablet (6 sources) HMG-CoA Reductase Inhibitor Start: 3 take 10 mg by mouth at bedtime Rosuvastatin Active 10 MG PO AT BEDTIME May 17, 2023 12:00am take 1 tablet by mouth once sabrina y rosuvastatin (CRESTOR) 10 mg tablet Take 10 mg by mouth once daily. 0 Active Comment on above: Take 10 mg by mouth once daily. Problems Active Problems Problem Classification Problem Date Documented Da te Episodic/Chronic Blindness and vision defects (11 sources) Diplopia; Translations: [Diplopia] Onset: 06-18-2022 Episodic Disorders of lipid metabolism (2 sources) Hypercholesterolemi a; Translations: [Pure hypercholesterolemi a, unspecified] Onset: 05-24-2024 06-02-2023 Chronic Essential hypertension (2 sources) Hypertensive disorder; Translations: [Essential (primary) hypertension] Onset: 11-05-2024 06-02-2023 Chronic Mood disorders (1 source) Depressive disorder; Translations: [Depression] 06-02-2023 Chronic Other eye disorders (1 source) Bilateral drusen of optic discs; Translations: [Drusen of optic disc, bilateral] Chronic Spondylosis; intervertebral disc disorders; other back problems (1 source) Spondylosis without myelopathy or radiculopathy, lumbosacral region; Translations: [Spondylosis without myelopathy or radiculopathy, lumbosacral region] Onset: 04-20-2024 Chronic Unclassified (1 source) Low back pain, unspecified; Translations: [Low back pain, unspecified] Onset: 09-14-2024 Past or Other Problems Problem Classification Problem Date Documented Da te Episodic/Chronic Other and unspecified benign neoplasm (1 source) Lipoma of thigh; Translations: [Benign lipomatous neoplasm of skin and subcutaneous tissue of right leg] 05-17-2023 Episodic Other and unspecified benign neoplasm (1 source) Benign lipomatous neoplasm of skin and subcutaneous tissue of right leg; Translations: [Lipoma of other specified sites] 05-17-2023 Episodic Results Test Name Value Interpretation Reference Range Facility Comprehensive Metabolic Prof tamika 11-02-2024 Albumin [Mass/Vol] 4.6 g/dL Normal 3.5-5.0 [facility] Comment on above: Performed By: #### L 500.4100, L500.4050 ####[facility] [address] [place], [address] Albumin/Globulin [Mass ratio] 1.8 {ratio} Normal 0.9-2.4 [facility] Comment on above: Performed By: #### L 500.4100, L500.4050 ####[facility] [address] [place], [address] ALK PHOS 75 U/L Normal 40-129 [facility] Comment on above: Performed By: #### L 500.4100, L500.4050 ####[facility] [address] [place], [address] ALT [Catalytic activity/Vol] 31 U/L Normal <=46 [facility] Comment on above: Performed By: #### L 500.4100, L500.4050 ####[facility] [address] [place], [address] AST [Catalytic activity/Vol] 29 U/L Normal <=37 [facility] Comment on above: Performed By: #### L 500.4100, L500.4050 ####[facility] [address] [place], [address] Bilirubin [Mass/Vol] 0.41 mg/dL Normal 0.00-1.30 [facility] Comment on above: Performed By: #### L 500.4100, L500.4050 ####[facility] [address] [place], [address] BUN/CRE 14.1 RATIO Normal 10-20 [facility] Comment on above: Performed By: #### L 500.4100, L500.4050 ####[facility] [address] [place], [address] Calcium [Mass/Vol] 9.6 mg/dL Normal 7.6-11.0 [facility] Comment on above: Performed By: #### L 500.4100, L500.4050 ####[facility] [address] [place], [address] Chloride [Moles/Vol] 103 mmol/L Normal 98-108 [facility] Comment on above: Performed By: #### L 500.4100, L500.4050 ####[facility] [address] [place], [address] CO2 [Moles/Vol] 22.2 mmol/L Normal 21.0-32.0 [facility] Comment on above: Performed By: #### L 500.4100, L500.4050 ####[facility] [address] [place], [address] Creatinine [Mass/Vol] 1.05 mg/dL Normal 0.70-1.20 [facility] Comment on above: Performed By: #### L 500.4100, L500.4050 ####[facility] [address] [place], [address] GAP 12 Normal 5-15 [facility] Comment on above: Performed By: #### L 500.4100, L500.4050 ####[facility] [address] [place], [address] GFR/1.73 sq M.predicted among non-blacks MDRD (S/P/Bld) [Vol rate/Area] 93 mL/min/{1.73_m2} Normal >60 [facility] Comment on above: Result Comment: mL/m in/1.73m2 CKD-EPI Creatinine Equation (2020) Performed By: #### L 500.4100, L500.4050 ####[facility] [address] [place], [address] Globulin (S) [Mass/Vol] 2.5 g/dL Normal 2.2-4.2 [facility] Comment on above: Performed By: #### L 500.4100, L500.4050 ####[facility] [address] [place], [address] Glucose [Mass/Vol] 95 mg/dL Normal 70-99 [facility] Comment on above: Performed By: #### L 500.4100, L500.4050 ####[facility] [address] [place], [address] Potassium [Moles/Vol] 3.9 mmol/L Normal 3.3-5.1 [facility] Comment on above: Performed By: #### L 500.4100, L500.4050 ####[facility] [address] [place], [address] Sodium [Moles/Vol] 137 mmol/L Normal 133-145 [facility] Comment on above: Performed By: #### L 500.4100, L500.4050 ####[facility] [address] [place], [address] T PROT 7.1 g/dL Normal 5.9-8.4 [facility] Comment on above: Performed By: #### L 500.4100, L500.4050 ####[facility] [address] [place], [address] Urea nitrogen [Mass/Vol] 15 mg/dL Normal 4-19 [facility] Comment on above: Performed By: #### L 500.4100, L500.4050 ####[facility] [address] [place], [address] Lipid Profileon 11-02-2024 CHOL:HDL 3.95 Normal [facility] Comment on above: Performed By: #### L 500.4100, L500.4050 ####[facility] [address] [place], [address] Cholesterol [Mass/Vol] 147 mg/dL Normal <=200 [facility] Comment on above: Result Comment: Chol esterol level, Desirable <200 mg/dL Borderline high cholesterol 200-239 mg/dL High cholesterol >=240 mg/dL Recommendations of the NCEP Adult Treatment Panel for the following risk-cutoff thresholds for the [place] population. Performed By: #### L 500.4100, L500.4050 ####[facility] [address] [place], [address] Cholesterol in HDL [Mass/Vol] 37 mg/dL Low [facility] Comment on above: Result Comment: Alee onal Cholesterol Education Program (NCEP) guidelines: <40 mg/dL: Low HDL-cholesterol (major risk factor for CHD) >= 60 mg/dL: High HDL-cholesterol (negative risk factor for CHD) HDL-cholesterol is affected by a number of factors, e.g. smoking, exercise, hormones, sex and age. Performed By: #### L 500.4100, L500.4050 ####[facility] [address] [place], [address] Cholesterol in LDL [Mass/Vol] 63 mg/dL Normal [facility] Comment on above: Result Comment: Bord dhjeny=781-821 mg/dL Higher Kikq=143 mg/dL or greater Performed By: #### L 500.4100, L500.4050 ####[facility] [address] [place], [address] Cholesterol in VLDL [Mass/Vol] 47 mg/dL High 5-40 [facility] Comment on above: Performed By: #### L 500.4100, L500.4050 ####[facility] [address] [place], [address] Triglyceride [Mass/Vol] 233 mg/dL High [facility] Comment on above: Result Comment: The drugs N-Acetylcysteine and Metamizole may falsely depress this assay. Normal range: <150 mg/dL Borderline High: 150-199 mg/dL High: 200-499 mg/dL Very High: >500 mg/dL Performed By: #### L 500.4100, L500.4050 ####[facility] [address] [place], [address] L/S Spine Min 4 Viewson 09-01 L/S Spine Min 4 Views [facility] Imaging Services [address] [place] [address] L/S Spine Min 4 Views MR#: [id number] Acct: [id number] Name: MING FIGUEROA Rep #: [id number] : 1985 M 39 From: Pavan Brambila MD PCP: Dr. Zaida Lancaster MD Status: DEP AMB Study: L/S Spine Min 4 Views Date of Exam: 09/14/24 Exam# [id number] Ordering Dr: Chuyita Sheffield EXAM: XR Lumbosacral Spine, 4 or 5 Views CLINICAL INDICATION: HX OF PAIN, RECENTLY BENT OVER AND PAIN ON RT SIDE TECHNIQUE: Frontal, lateral and bilateral oblique views of the lumbar spine. COMPARISON: No relevant prior studies available. FINDINGS: VERTEBRAE: Unremarkable. Normal alignment. No acute fracture. No significant dynamic instability. SACRUM/COCCYX: Unremarkable as visualized. No acute fracture. DISC SPACES: No acute findings. No significant narrowing. SOFT TISSUES: Unremarkable. GASTROINTESTINAL TRACT: Fecal retention in the colon consistent with constipation. RAD/L/S Spine Min 4 Views IMPRESSION: 1. No acute fracture. No significant dynamic instability. 2. Fecal retention in the colon consistent with constipation. Reading Location: [facility] CC: JONAH Tsang; Dr. Zaida Lancaster MD Mounter Clarinets: Signed Normal [facility] Orthopedic Visit Reporton Orthopedic Visit Report [facility] [address] [place] [address] OFFICE VISIT Date of Service: 09/14/24 MR#: [id number] Acct: [id number] Name: MING FIGUEROA Rep #: [id number] : 1985 Provider: JONAH Tsang Age/Sex: 39/M Location[facility] Status: Signed Intake Vital Signs 04/05/24 08:58 09/14/24 08:28 Height 6 ft 6 ft Weight: 214 lb BMI 29.0 Intake Visit Reasons: LUMBAR SPINE Chief Complaint: lumbar spine Is patient in pain?: Yes (lumbar spine) Pain scale (1-10): 8 Allergies amoxicillin Allergy (Mild, Verified 09/14/24 08:28) Rash Medications ???Medication ???Instructions ???Recorded ???Confirmed ???Type escitalopram oxalate 10 mg tablet 10 mg PO DAILY 05/17/23 09/14/24 History lisinopril 10 mg tablet 10 mg PO DAILY 05/17/23 09/14/24 H istory rosuvastatin 10 mg tablet 10 mg PO QHS 05/17/23 09/14/24 His tory methocarbamol 500 mg tablet 500 mg PO TID PRN pain/spasms #30 09/14/24 09/14/24 Rx tabs PFSH Medical History (Updated 09/14/24 @ 14:11 by JONAH Tsang) Open wound Anxiety Alcohol use Migraine headache Vaso-vagal reaction Syncope Non-smoker Depression High cholesterol HTN (hypertension) Surgical History (Updated 09/14/24 @ 10:42 by JONAH Tsang) Previous back surgery S/P excision of lipoma S/P hernia repair S/P arthroscopic knee surgery Family History Mother Breast cancer Hypertension Grandfather Bleeding disorder Hypertension Grandmother Breast cancer Hypertension Uncle Cancer lung Social History Smoking Status: Never smoker alcohol intake: current HPI LUMBAR SPINE Details: This documentation accurately reflects the service provided and the decisions made by me, JONAH Tsang 09/14/24 0828. Part of today???s visit was documented by Gabriela Adams RN, acting as scribe. MING FIGUEROA is a 39 year old M here today for initial evaluation of lumbar spine pain. He had surgery with Dr. Aleman last year in March for an L5-S1 herniation. Says that they did a laminotomy discectomy at that time and then several weeks later he had a seroma form that Love took him back to surgery to clean out. At the time of the surgery he had left sided low back pain with sciatic pain and numbness and tingling down into his left leg. He reports after the surgery he felt amazing and had no pain. He has been able to do all of his daily activities without pain until the earlier this week. He was getting out of the shower and bent over to dry his feet and instantly felt a intense pain in his low back. He has had 1 day of pain. He states the back pain is across his low back but states the right side is more painful. He denies numbness and tingling at this time. The pain is intense 8/10. He is not able to bend or his low back get stuck and he is not able to move. Says that he took 2 ibuprofen yesterday with no benefit today he tried Aleve and has not yet noticed any benefit. Sitting seems to relieve the pain however if he bends or twists while sitting that is when the pain exacerbates. He denies any pain that radiates into his legs. Says that he did try to do some of the stretches that physical therapy had given him yesterday but this seemed to also increase his pain. Ortho Exam General General: Yes no acute distress Neurologic: Yes alert and Yes oriented x3 Spine SPINE TESTING CERVICAL THORACIC LUMBAR Musculoskeletal Strength 0=absent - 5=normal Details: Neurological exam of the lower extremities shows 5x5 power. Patient did have increased pain with right knee extension. Normal sensations across all dermatomes. No hyperreflexia. No midline or paraspinal tenderness. Increased pain with back extension. Physical examination of the back shows a well-healed midline incision. Coding Level of Care Code Off vis,new,level 3 Diagnoses History of discectomy Z98.890 Acute bilateral low back pain without sciatica M54.50 Chronicity: acute Back pain laterality: bilateral Sciatica presence: without sciatica Assessment and Plan Assessment and Plan (1) History of discectomy: Status: Acute (2) Low back pain: Status: Acute Qualifiers: Chronicity: acute Back pain laterality: bilateral Sciatica presence: without sciatica Qualified Code(s): M54.50 - Low back pain, unspecified Orders: Orders L/S Spine Min 4 Views Today M54.50 - Low back pain, unspecified Referrals Physical Therapy Referral M54.50 - Low back pain, unspecified Medications: New methocarbamol 500 mg PO TID PRN 30 tabs 0RF pain/spasms Plan Obtained and reviewed x-rays today with the patient. Independent interpretation of the x-rays was (more content not included)... Normal [facility] AST(SGOT)on 05-04-2024 AST [Catalytic activity/Vol] 28 U/L Normal 15-37 [facility] Comment on above: Order Comment: Order Date: 04/25/23 Order Info: [id number] - BMP Order Info: [id number] - LIPID Order Info: 1920-02 - AST Order Info: [id number] - ALT Performed By: #### L 502.0250, L500.4100, L501.4100, L501.4405, L500.2500 #### [facility] Laboratory [address] [place], [place], [id number] Alanine Aminotransferas (SGP T)on 05-04-2024 ALT [Catalytic activity/Vol] 39 U/L Normal 16-61 [facility] Comment on above: Order Comment: Order Date: 04/25/23Order Info: [id number] - BMPOrder Info: [id number] - LIPIDOrder Info: 1920-02 - ASTOrder Info: [id number] - ALT Performed By: #### L 502.0250, L500.4100, L501.4100, L501.4405, L500.2500 ####[facility] [address] [facility] [place], [address] Basic Metabolic Profile (BMP )on 05-04-2024 BUN/CRE 11.8 RATIO Normal 10-20 [facility] Comment on above: Order Comment: Order Date: 04/25/23 Order Info: [id number] - BMP Order Info: - LIPID Order Info: 1920-02 AST Order Info: [id number] - ALT Performed By: #### L 502.0250, L500.4100, L501.4100, L501.4405, L500.2500 #### [facility] [address] [place], [address] CA,Total 9.5 mg/dL Normal 8.5-10.1 [facility] Comment on above: Order Comment: Order Date: 04/25/23 Order Info: [id number] - BMP Order Info: - LIPID Order Info: 1920-02 AST Order Info: [id number] - ALT Performed By: #### L 502.0250, L500.4100, L501.4100, L501.4405, L500.2500 #### [facility] [address] [place], [address] Chloride [Moles/Vol] 105 mmol/L Normal 98-107 [facility] Comment on above: Order Comment: Order Date: 04/25/23 Order Info: [id number] - BMP Order Info: - LIPID Order Info: 1920-02 AST Order Info: [id number] - ALT Performed By: #### L 502.0250, L500.4100, L501.4100, L501.4405, L500.2500 #### [facility] [address] [place], [address] CO2 [Moles/Vol] 26.0 mmol/L Normal 21.0-32.0 [facility] Comment on above: Order Comment: Order Date: 04/25/23 Order Info: [id number] - BMP Order Info: - LIPID Order Info: 1920-02 AST Order Info: [id number] - ALT Performed By: #### L 502.0250, L500.4100, L501.4100, L501.4405, L500.2500 #### [facility] [address] [place], [address] Creatinine [Mass/Vol] 0.94 mg/dL Normal 0.70-1.30 [facility] Comment on above: Order Comment: Order Date: 04/25/23 Order Info: [id number] - BMP Order Info: [id number] - LIPID Order Info: 1920-02 - AST Order Info: [id number] - ALT Result Comment: The validity of the calculated GFR GFRAA in patients over 70 years has not been determined. Clinical correlation is essential. Performed By: #### L 502.0250, L500.4100, L501.4100, L501.4405, L500.2500 #### [facility] [address] [place], [address] EST GFR - AA 116 mL/min Normal >60 [facility] Comment on above: Order Comment: Order Date: 04/25/23 Order Info: [id number] - BMP Order Info: - LIPID Order Info: 1920-02 AST Order Info: [id number] - ALT Result Comment: Afri can [place] GFR Calc Performed By: #### L 502.0250, L500.4100, L501.4100, L501.4405, L500.2500 #### [facility] [address] [place], [address] GAP 5 Normal 5-15 [facility] Comment on above: Order Comment: Order Date: 04/25/23 Order Info: [id number] - BMP Order Info: - LIPID Order Info: 1920-02 AST Order Info: 1741-12 - ALT Performed By: #### L 502.0250, L500.4100, L501.4100, L501.4405, L500.2500 #### [facility] [address] [place], [address] GFR/1.73 sq M.predicted among non-blacks MDRD (S/P/Bld) [Vol rate/Area] 96 mL/min/{1.73_m2} Normal >60 [facility] Comment on above: Order Comment: Order Date: 04/25/23 Order Info: [id number] - BMP Order Info: - LIPID Order Info: 1920-02 - AST Order Info: [id number] - ALT Result Comment: Non- GFR Calc Performed By: #### L 502.0250, L500.4100, L501.4100, L501.4405, L500.2500 #### [facility] [address] [place], [address] Glucose [Mass/Vol] 85 mg/dL Normal 74-106 [facility] Comment on above: Order Comment: Order Date: 04/25/23 Order Info: [id number] - BMP Order Info: - LIPID Order Info: 1920-02 AST Order Info: 1741-12 - ALT Performed By: #### L 502.0250, L500.4100, L501.4100, L501.4405, L500.2500 #### [facility] [address] [place], [address] Potassium [Moles/Vol] 4.4 mmol/L Normal 3.5-5.1 [facility] Comment on above: Order Comment: Order Date: 04/25/23 Order Info: 666-07 - BMP Order Info: - LIPID Order Info: 1920-02 - AST Order Info: 1741-12 - ALT Performed By: #### L 502.0250, L500.4100, L501.4100, L501.4405, L500.2500 #### [facility] [address] [place], [address] Sodium [Moles/Vol] 137 mmol/L Normal 136-145 [facility] Comment on above: Order Comment: Order Date: 04/25/23 Order Info: 666-07 - BMP Order Info: - LIPID Order Info: 1920-02 - AST Order Info: 1741-12 - ALT Performed By: #### L 502.0250, L500.4100, L501.4100, L501.4405, L500.2500 #### [facility] [address] [place], [place], [id number] Urea nitrogen [Mass/Vol] 11 mg/dL Normal 7-18 [facility] Comment on above: Order Comment: Order Date: 04/25/23 Order Info: 666-07 - BMP Order Info: - LIPID Order Info: 1920-02 - AST Order Info: 1741-12 - ALT Performed By: #### L 502.0250, L500.4100, L501.4100, L501.4405, L500.2500 #### [facility] [address] [place], [place], [id number] Lipid Profileon 05-04-2024 Cholesterol [Mass/Vol] 147 mg/dL Normal 200 [facility] Comment on above: Order Comment: Order Date: 04/25/23 Order Info: 666-07 - BMP Order Info: - LIPID Order Info: 1920-02 - AST Order Info: 1741-12 - ALT Result Comment: <200 mg/dL Desirable 200-240 mg/dL Borderline >240 mg/dL High Risk Performed By: #### L 502.0250, L500.4100, L501.4100, L501.4405, L500.2500 #### [facility] [address] [place], [place], [id number] Cholesterol in HDL [Mass/Vol] 47 mg/dL Normal [facility] Comment on above: Order Comment: Order Date: 04/25/23 Order Info: 666-07 - BMP Order Info: - LIPID Order Info: 1920-02 - AST Order Info: 1741-12 - ALT Result Comment: The drugs N-Acetylcysteine and Metamizole may falsely depress this assay. Reference Range HDL <40 mg/dL Low HDL Cholesterol HDL >or= 60 mg/dL High HDL Cholesterol Performed By: #### L 502.0250, L500.4100, L501.4100, L501.4405, L500.2500 #### [facility] [address] [place], [address] Cholesterol in LDL [Mass/Vol] 75 mg/dL Normal 0-130 [facility] Comment on above: Order Comment: Order Date: 04/25/23 Order Info: 666-07 - BMP Order Info: - LIPID Order Info: 1920-02 - AST Order Info: 1741-12 - ALT Performed By: #### L 502.0250, L500.4100, L501.4100, L501.4405, L500.2500 #### [facility] [address] [place], [address] Cholesterol in VLDL [Mass/Vol] 25 mg/dL Normal 5-40 [facility] Comment on above: Order Comment: Order Date: 04/25/23 Order Info: 666-07 - BMP Order Info: - LIPID Order Info: 1920-02 - AST Order Info: 1741-12 - ALT Performed By: #### L 502.0250, L500.4100, L501.4100, L501.4405, L500.2500 #### [facility] [address] [place], [address] Triglyceride [Mass/Vol] 127 mg/dL Normal [facility] Comment on above: Order Comment: Order Date: 04/25/23 Order Info: 666-07 - BMP Order Info: - LIPID Order Info: 1920-02 - AST Order Info: 1741-12 - ALT Result Comment: The drugs N-Acetylcysteine and Metamizole may falsely depress this assay. Serum Triglycerides Reference Interval Normal <150 mg/dL Borderline high 150 - 199 mg/dL High 200 - 499 mg/dL Very High > or = 500 mg/dL Performed By: #### L 502.0250, L500.4100, L501.4100, L501.4405, L500.2500 #### [facility] [address] [place], [address] Microalb:Creat Ratio,Random URon 05-04-2024 Creatinine [Mass/Vol] 48.20 mg/dL Normal NO RANGE EST. [facility] Comment on above: Order Comment: Order Date: 04/25/23Order Info: 0779-1 - MIACRE Performed By: #### L 502.0250, L500.4100, L501.4100, L501.4405, L500.2500 ####[facility] [address] [place], [address] MALB:CRE TNP Normal <30 mg/g CRE [facility] Comment on above: Order Comment: Order Date: 04/25/23Order Info: 0779-1 - MIACRE Performed By: #### L 502.0250, L500.4100, L501.4100, L501.4405, L500.2500 ####[facility] [address] [place], [address] MICROALBUMIN,UR < 5.0 Normal NO RANGE EST. [facility] Comment on above: Order Comment: Order Date: 04/25/23Order Info: 0779-1 - MIACRE Performed By: #### L 502.0250, L500.4100, L501.4100, L501.4405, L500.2500 ####[facility] [address] [place], [address] Culture, Anaerobic Any Sourc josue 04-12-2024 CUAN COLLECTED IN OR--DEEP LUMBAR WOUND No anaerobic bacteria isolated. Normal [facility] Comment on above: Performed By: #### M 100.651, L100.0100, L300.3900, L500.2500, L300.4310 #### [facility] [address] [place], [address] Culture, Anaerobic Any Sourc josue 04-09-2024 CUAN COLLECTED IN OR--SUPERFICIAL LUMBAR WOUND No anaerobic bacteria isolated. Normal [facility] Comment on above: Performed By: #### M 100.651, L100.0100, L300.3900, L500.2500, L300.4310 #### [facility] [address] [facility] [place], [place], [id number] Wound Cultureon 04-09-2024 WC COLLECTED IN OR--SUPERFICIAL LUMBAR WOUND Anaerobic non-spore forming gram positive rods are usually SUSCEPTIBLE to Beta-lactams and Beta-lactamase inhibitors, Linezolid, and Daptomycin. They are usually RESISTANT to Metronidazole. Cutibacterium granulosum Amount Growth Rare Normal [facility] Comment on above: Performed By: #### M 100.651, L100.0100, L300.3900, L500.2500, L300.4310 #### [facility] [address] [facility] [place], [place], [phone] WC COLLECTED IN OR--DEEP LUMBAR WOUND Anaerobic non-spore forming gram positive rods are usually SUSCEPTIBLE to Beta-lactams and Beta-lactamase inhibitors, Linezolid, and Daptomycin. They are usually RESISTANT to Metronidazole. Cutibacterium granulosum Amount Growth Rare Normal [facility] Comment on above: Performed By: #### M 100.651, L100.0100, L300.3900, L500.2500, L300.4310 #### [facility] [address] [facility] [place], [place], [id number] Gram Stainon 04-06-2024 GS COLLECTED IN OR--DEEP LUMBAR WOUND Gram Stain 4+ Red Blood Cells 1+ White Blood Cells No organisms seen No Epithelial cells Normal [facility] Comment on above: Performed By: #### M 100.651, L100.0100, L300.3900, L500.2500, L300.4310 #### [facility] [address] [facility] [place], [place], [id number] GS COLLECTED IN OR--SUPERFICIAL LUMBAR WOUND Gram Stain No Epithelial cells 4+ Red Blood Cells 4+ White Blood Cells No organisms seen Normal [facility] Comment on above: Performed By: #### M 100.651, L100.0100, L300.3900, L500.2500, L300.4310 #### [facility] [address] [place], [address] MR/POSTOP.ANEon 04-05-2024 MR/POSTOP.ANE [facility] Medical Records Department [address] [place] [address] Anesthesia Postop Eval I 04/05/24 1212 MR#: [id number] Acct: [id number] Name: MING FIGUEROA Rep #: [id number] : 1985 38 From: Brittny Lind PCP: Dr. Zaida Lancaster MD Status:REG SDC Y Race: C Location: [place] [address] Anesthesia: Postop Eval I Current Vital Signs Temperature: 99.1 F Pulse Rate: 107 Blood Pressure: 127/62 Respiratory Rate: 18 Pulse Ox: 93 Assessment Airway patent: Yes Spontaneous unlabored respirations: Yes nausea: No Vomiting: No Anesthesia Complication: No Fluid Hydration Crystalloid volume administer (ml): 800 Total IV fluid infused: 800 Progress Note Anesthesia document: Postop Eval 1 completed: Yes 04/05/241212 Date Brittny Wright Signature: Date CC: Signed Normal [facility] MR/[id number] 04-05-2024 MR/POSTOPAN2 [facility] Medical Records Department [address] [place] [address] Anesthesia Postop Eval II 04/05/24 1223 MR#: [id number] Acct: [id number] Name: MING FIGUEROA Rep #: [id number] : 1985 38 From: Yaakov Shelley MD PCP: Dr. Zaida Lancaster MD Status:REG SDC Y Race: C Location: [place] [address] Anesthesia Postop Eval I Sum Postop Eval Completion status Anesthesia document: Postop Eval 1 completed: Yes Anesthesia Postop Eval I Summary Anesthesia Postop Eval I Summary: Anesthesia Postop Eval I: Assessment Summary Airway patent Yes 04/05/24 12:12 CIRCULAR [email or web address] Spontaneous unlabored Yes 04/05/24 12:12 CIRCULAR KNITTER.CSIR respirations Mental status nausea No 04/05/24 12:12 CIRCULAR KNITTER.CSIR Vomiting No 04/05/24 12:12 CIRCULAR KNITTER.CSIR Anesthesia Postop Eval I: Fluid Summary Crystalloid volume administer 800 04/05/24 12:12 CIRCULAR KNITTER.CSIR (ml) Colloids volume administered ( ml) Blood Product volume administered (ml) Total IV fluid infused 800 04/05/24 12:12 CIRCULAR KNITTER.CSIR Anesthesia Postop Eval I: Summary Notes Anesthesia Complication No 04/05/24 12:12 CIRCULAR KNITTER.CSIR Anesthesia Complication Comment: Post-operative progress note Anesthesia: Postop Eval II Evaluation Mental status: Awake Pain Level: 0 nausea: No Vomiting: No 04/05/24 1224 Date Yaakov Shelley MD Cosigner Signature: Date CC: Signed Normal [facility] Operative Reporton 4 Operative Report [facility] Medical Records Department [address] [place] [address] Operative Report 04/05/24 0900 MR#: [id number] Acct: [id number] Name: MING FIGUEROA Rep #: [id number] : 1985 38 From: James Aleman DO PCP: Dr. Zaida Lancaster MD Status:REG [facility] Location: [place] [address] Report of Operation Date of Procedure: 04/05/24 Pre-Operative Diagnosis: 1. Delayed wound healing, lumbar Post-Operative Diagnosis: 1. Delayed wound healing, lumbar Surgery/Procedure Performed:: 1. Lumbar irrigation, debridement 2. Lumbar wound exploration 3. Primary closure STATEMENT OF MEDICAL NECESSITY: The patient is a 38-year-old male who presented with persistent wound drainage 2 weeks status post discectomy surgery. The patient failed conservative treatment with dressing changes and antibiotics. The patient opted for operative intervention, understanding the risks to include, but not limited to infection, bleeding, damage to nerves, arteries, and veins, possibility of spinal fluid leak, continued pain, need for further surgery, deep vein thrombosis, pulmonary embolism, heart attack, risk of stroke, or . DESCRIPTION OF PROCEDURE: The patient was identified in the preoperative holding area. There, he received the preoperative IV antibotics and was then transferred to the operating suite. Once in the operating suite, after general endotracheal anesthesia was established, the patient was transferred to the [place] operating table in the prone position. All bony prominences were padded accordingly. The lumbar spine was prepped and draped in standard surgical fashion. The previous midline incision was reopened and taken down to the lumbodorsal fascia. A moderate amount of serosanguineous fluid was encountered and cultured. The wound was then thoroughly irrigated and the fascia was inspected. The fascia closure was found to be intact. The fascia was divided and deep retractors were placed. No significant fluid or necrotic tissue was encountered. A second set of cultures was taken deep to the fascia. The incision was then thoroughly irrigated again. Tissel was placed over the dura as a hemostatic agent. The fascia was closed with #1 Vicryl, subcutaneous with 2-0 Vicryl, skin was closed with 2-0 nylon. Sterile dressing was applied with 4 x 4, ABD, and tape. Sponge, instrument, and needle counts were correct at the end of the case. The patient was extubated, taken to PACU without incident. Surgeon: James Aleman Type of Anesthesia: General Estimated Blood Loss (mL): 10cc Fluids Replaced: 800cc Complications None Admit VTE Documentation VTE Present on Admission: No 04/05/24 1201 Cosigner Signature (if applicable): CC: Dr. Zaida Lancaster MD; Dr. James Aleman DO Signed Normal [facility] MR/POSTOP.John 03-22-2024 MR/POSTOP.[facility] Medical Records Department [address] [place] [address] Anesthesia Postop Eval I 03/22/24 0950 MR#: [id number] Acct: [id number] Name: MING FIGUEROA Rep #: [id number] : 1985 38 From: Lamar Escalera PCP: Dr. Zaida Lancaster MD Status:REG [facility] Y Race: C Location: [place] [address] Anesthesia: Postop Eval I Current Vital Signs Temperature: 98.2 F Pulse Rate: 96 Blood Pressure: 116/81 Respiratory Rate: 16 Pulse Ox: 100 Oxygen Delivery Method: Room Air Assessment Airway patent: Yes Spontaneous unlabored respirations: Yes Mental status: Awake and Calm nausea: No Vomiting: No Anesthesia Complication: No Fluid Hydration Crystalloid volume administer (ml): 1,700 Total IV fluid infused: 1,700 Progress Note Anesthesia document: Postop Eval 1 completed: Yes 03/22/2458 Date Lamar Wright Signature: Date CC: Signed Normal [facility] MR/[id number] 03-22-2024 [facility] Medical Records Department [address] [place] [address] Anesthesia Postop Eval II 03/22/24 1020 MR#: [id number] Acct: [id number] Name: MING FIGUEROA Rep #: [id number] : 1985 38 From: Yaakov Shelley MD PCP: Dr. Zaida Lancaster MD Status:REG [facility] Y Race: C Location: [place] [address] Anesthesia Postop Eval I Sum Postop Eval Completion status Anesthesia document: Postop Eval 1 completed: Yes Anesthesia Postop Eval I Summary Anesthesia Postop Eval I Summary: Anesthesia Postop Eval I: Assessment Summary Airway patent Yes 03/22/24 09:58 CIRCULAR KNITTER.[email or web address] Spontaneous unlabored Yes 03/22/24 09:58 CIRCULAR KNITTER.GDOTT respirations Mental status Awake,Calm 03/22/24 09:58 CIRCULAR KNITTER.GDOTT nausea No 03/22/24 09:58 CIRCULAR KNITTER.GDOTT Vomiting No 03/22/24 09:58 CIRCULAR KNITTER.GDOTT Anesthesia Postop Eval I: Fluid Summary Crystalloid volume administer 1,700 03/22/24 09:58 CIRCULAR KNITTER.GDOTT (ml) Colloids volume administered ( ml) Blood Product volume administered (ml) Total IV fluid infused 1,700 03/22/24 09:58 CIRCULAR KNITTER.GDOTT Anesthesia Postop Eval I: Summary Notes Anesthesia Complication No 03/22/24 09:58 CIRCULAR KNITTER.GDOTT Anesthesia Complication Comment: Post-operative progress note Anesthesia: Postop Eval II Evaluation Mental status: Awake Pain Level: 0 nausea: No Vomiting: No 03/22/24 1020 Date Yaakov Shelley MD Cosigner Signature: Date CC: Signed Normal [facility] Operative Reporton 4 Operative Report [facility] Medical Records Department [address] [place] [address] Operative Report 03/22/24 0700 MR#: [id number] Acct: [id number] Name: MING FIGUEROA Rep #: [id number] : 1985 38 From: James Aleman DO PCP: Dr. Zaida Lancaster MD Status:[facility] Location: [place] [address] Report of Operation Date of Procedure: 03/22/24 Description of Surgical Findings:: REPORT OF OPERATION PREOPERATIVE DIAGNOSES: 1. Lumbar stenosis, L5-S1 with spondylosis. 2. Lumbar disc herniation L5-S1, LEFT. POSTOPERATIVE DIAGNOSES: 1. Lumbar stenosis, L5-S1 with spondylosis. 2. Lumbar disc herniation L5-S1, LEFT. PROCEDURE PERFORMED: 1. Bilateral L5-S1 Laminotomy, foraminotomy 2. Left L5-S1 discectomy. STATEMENT OF MEDICAL NECESSITY: The patient is a 38-year-old male with intractable back and leg pain. Image studies confirm above diagnosis. The patient has opted for operative intervention, understanding the risks to include, but not limited to infection, bleeding, damage to nerves, arteries, and veins, possibility of spinal fluid leak, nonunion, hardware failure, continued pain, need for further surgery, deep vein thrombosis, pulmonary embolism, heart attack, risk of stroke, or . DESCRIPTION OF PROCEDURE: The patient was identified in the preoperative holding area. There, he received the preoperative IV antibotics and then transferred to the operating suite. Once in the operating suite, after general endotracheal anesthesia was established, the patient was transferred to the [place] operating table in the prone position. All bony prominences were padded accordingly. The lumbar spine was prepped and draped in standard surgical fashion. Midline incision was made and taken down to the lumbodorsal fascia. This was divided and subperiosteal dissection taken down to the level of the bilateral L5-S1 facet joints. Deep retractors were placed. A bertha was used to thin the lamina and then a series of Kerrisons and rongeurs was used to perform a bilateral L5-S1 laminotomy and foraminotomy. The dura and nerve root were identified and retracted medially. A large subligamentous disc herniation was identified. A knife was used to perform an annulotomy at L5-S1 on the left and a large subligamentous disc was removed using pituitaries, any loose fragments were identified and removed and the wound was irrigated. Tissel was placed over the dura as a hemostatic agent. The fascia was closed with #1 Vicryl, subcutaneous with 2-0 Vicryl, skin was closed with 2-0 nylon. Sterile dressing was applied with 4 x 4, ABD, and tape. Sponge, instrument, and needle counts were correct at the end of the case. The patient was extubated, taken to PACU without incident. Surgeon: James Aleman Type of Anesthesia: General Estimated Blood Loss (mL): 20cc Fluids Replaced: 1700c Complications None Admit VTE Documentation VTE Present on Admission: No 03/22/24 1241 Cosigner Signature (if applicable): CC: Dr. Zaida Lancaster MD; Dr. James Aleman DO Signed Normal [facility] Spine 1 View Any Levelon Spine 1 View Any Level [facility] Imaging [place] [address] [place] [address] Spine 1 View Any Level MR#: [id number] Acct: [id number] Name: MING FIGUEROA Rep #: [id number] : 1985 M 38 From: Joe Francis MD PCP: Dr. Zaida Lancaster MD Status: [facility] [place] Study: Spine 1 View Any Level Date of Exam: 03/22/24 Exam# [id number] Ordering Dr: James Aleman DO [id number] STUDY: X-RAY - LUMBAR SPINE REASON FOR EXAM: Male, 38 years old. L5-S1 LAMINOTOMY DISCECTOMY, POSS LAMINECTOMY, LEFT TECHNIQUE: 1 view(s) of the lumbar spine were obtained. COMPARISON: None FINDINGS: Fluoroscopy of the lumbar spine was utilized for underlying laminectomy and a single image cement for interpretation.. RAD/Spine 1 View Any Level IMPRESSION: Fluoroscopy during surgery. Electronically Signed: Joe Francis MD at 8:52 EDT , CC: Dr. Zaida Lancaster MD; Dr. James Aleman DO Mounter Clarinets: Signed Normal [facility] MRSA/SAID NASAL SCREENon MRSA+SAID SCRN Reason for Exam: PREOP MRSA MRSA Negative S. AUREUS S. aureus Negative Normal [facility] Comment on above: Performed By: #### M 100.651, L100.0100, L300.3900, L500.2500, L300.4310 #### [facility] [address] [place], [address] 12 Lead EKGon 03-08-2024 12 Lead EKG [facility] Cardiovascular Services [address] [place] [address] 12 Lead EKG 03/08/24 1331 MR#: [id number] Acct: [id number] Name: MING FIGUEROA Rep #: [id number] : 1985 38 From: Maicol Crouch MD Attending Dr: Dr. James Aleman DO Status: PRE SDC Ordering Dr: James Aleman DO Date: 03/08/24 Location: [facility] Sex: M C Admitted: Test Reason : PRE OP Blood Pressure : / mmHG Vent. Rate : 091 BPM Atrial Rate : 091 BPM P-R Int : 146 ms QRS Dur : 082 ms QT Int : 356 ms P-R-T Axes : 057 033 047 degrees QTc Int : 437 ms Normal sinus rhythm Normal ECG Confirmed by WILLA RUANO, MAICOL ([id number]), assignment editor MENA RAMIRES ([id number]) on 03/09/2024 10:48:41 AM Referred By: James Aleman Confirmed By:MAICOL CROUCH MD 03/09/24 1048 Date Maicol Crouch MD CC: Dr. Zaida Lancaster MD; Dr. James Aleman DO Signed Normal [facility] Basic Metabolic Profile (BMP )on 03-08-2024 BUN/CRE 11.7 RATIO Normal 10-20 [facility] Comment on above: Performed By: #### M 100.651, L100.0100, L300.3900, L500.2500, L300.4310 #### [facility] [address] [place], [address] CA,Total 9.4 mg/dL Normal 8.5-10.1 [facility] Comment on above: Performed By: #### M 100.651, L100.0100, L300.3900, L500.2500, L300.4310 #### [facility] [address] [place], [address] Chloride [Moles/Vol] 105 mmol/L Normal 98-107 [facility] Comment on above: Performed By: #### M 100.651, L100.0100, L300.3900, L500.2500, L300.4310 #### [facility] [address] [place], [address] CO2 [Moles/Vol] 26.0 mmol/L Normal 21.0-32.0 [facility] Comment on above: Performed By: #### M 100.651, L100.0100, L300.3900, L500.2500, L300.4310 #### [facility] [address] [place], [address] Creatinine [Mass/Vol] 1.03 mg/dL Normal 0.70-1.30 [facility] Comment on above: Result Comment: The validity of the calculated GFR GFRAA in patients over 70 years has not been determined. Clinical correlation is essential. Performed By: #### M 100.651, L100.0100, L300.3900, L500.2500, L300.4310 #### [facility] [address] [place], [address] EST GFR - AA 104 mL/min Normal >60 [facility] Comment on above: Result Comment: Afri can Moroccan GFR Calc Performed By: #### M 100.651, L100.0100, L300.3900, L500.2500, L300.4310 #### [facility] [address] [place], [address] GAP 6 Normal 5-15 [facility] Comment on above: Performed By: #### M 100.651, L100.0100, L300.3900, L500.2500, L300.4310 #### [facility] [address] [place], [address] GFR/1.73 sq M.predicted among non-blacks MDRD (S/P/Bld) [Vol rate/Area] 86 mL/min/{1.73_m2} Normal >60 [facility] Comment on above: Result Comment: Non- GFR Calc Performed By: #### M 100.651, L100.0100, L300.3900, L500.2500, L300.4310 #### [facility] [address] [place], [address] Glucose [Mass/Vol] 116 mg/dL High 74-106 [facility] Comment on above: Result Comment: Fast ing Glucose result from 100 to 125 mg/dL suggests IMPAIRED HOMEOSTASIS per A.D.A. criteria. Performed By: #### M 100.651, L100.0100, L300.3900, L500.2500, L300.4310 #### [facility] [address] [place], [address] Potassium [Moles/Vol] 3.9 mmol/L Normal 3.5-5.1 [facility] Comment on above: Performed By: #### M 100.651, L100.0100, L300.3900, L500.2500, L300.4310 #### [facility] [address] [place], [address] Sodium [Moles/Vol] 137 mmol/L Normal 136-145 [facility] Comment on above: Performed By: #### M 100.651, L100.0100, L300.3900, L500.2500, L300.4310 #### [facility] [address] [place], [address] Urea nitrogen [Mass/Vol] 12 mg/dL Normal 7-18 [facility] Comment on above: Performed By: #### M 100.651, L100.0100, L300.3900, L500.2500, L300.4310 #### [facility] [address] [place], [address] CBC W/Diff, Automatedon 09-0 5-2024 Absolute Lymph 1.53 X10 3/uL Normal 0.83-4.51 [facility] Comment on above: Performed By: #### M 100.651, L100.0100, L300.3900, L500.2500, L300.4310 #### [facility] [address] [place], [address] Absolute Neut 2.5 X10 3/uL Normal 2.0-7.7 [facility] Comment on above: Performed By: #### M 100.651, L100.0100, L300.3900, L500.2500, L300.4310 #### [facility] [address] [place], [address] Basophils/100 WBC (Bld) 0.4 % Normal 0-1 [facility] Comment on above: Performed By: #### M 100.651, L100.0100, L300.3900, L500.2500, L300.4310 #### [facility] [address] [place], [address] Eosinophils/100 WBC (Bld) 2.2 % Normal 0-5 [facility] Comment on above: Performed By: #### M 100.651, L100.0100, L300.3900, L500.2500, L300.4310 #### [facility] [address] [place], [address] Erythrocyte distribution width (RBC) [Ratio] 13.0 % Normal 11.6-14.6 [facility] Comment on above: Performed By: #### M 100.651, L100.0100, L300.3900, L500.2500, L300.4310 #### [facility] [address] [place], [address] Hematocrit (Bld) [Volume fraction] 42.9 % Normal 40-54 [facility] Comment on above: Performed By: #### M 100.651, L100.0100, L300.3900, L500.2500, L300.4310 #### [facility] [address] [place], [address] Hemoglobin (Bld) [Mass/Vol] 14.4 g/dL Normal 13.0-16.5 [facility] Comment on above: Performed By: #### M 100.651, L100.0100, L300.3900, L500.2500, L300.4310 #### [facility] [address] [place], [address] IG% 0.200 Normal 0.0-0.9 [facility] Comment on above: Result Comment: IG% - Immature Granulocytes (promyelocytes, myelocytes and metamyelocytes) > 1% indicates that a LEFT SHIFT is Present. Performed By: #### M 100.651, L100.0100, L300.3900, L500.2500, L300.4310 #### [facility] [address] [place], [address] Lymphocytes/100 WBC (Bld) 33.9 % Normal 19-41 [facility] Comment on above: Performed By: #### M 100.651, L100.0100, L300.3900, L500.2500, L300.4310 #### [facility] [address] [place], [address] MCH (RBC) [Entitic mass] 28.8 pg Normal 27.0-32.0 [facility] Comment on above: Performed By: #### M 100.651, L100.0100, L300.3900, L500.2500, L300.4310 #### [facility] [address] [place], [address] MCHC (RBC) [Mass/Vol] 33.6 g/dL Normal 32-36 [facility] Comment on above: Performed By: #### M 100.651, L100.0100, L300.3900, L500.2500, L300.4310 #### [facility] [address] [place], [address] MCV (RBC) [Entitic vol] 85.8 fL Normal 80-94 [facility] Comment on above: Performed By: #### M 100.651, L100.0100, L300.3900, L500.2500, L300.4310 #### [facility] [address] [place], [address] Monocytes/100 WBC (Bld) 8.6 % Normal 0-10 [facility] Comment on above: Performed By: #### M 100.651, L100.0100, L300.3900, L500.2500, L300.4310 #### [facility] [address] [place], [address] Neutrophils/100 WBC (Bld) 54.7 % Normal 47-70 [facility] Comment on above: Performed By: #### M 100.651, L100.0100, L300.3900, L500.2500, L300.4310 #### [facility] [address] [place], [address] Nucleated RBC (Bld) [#/Vol] 0 10*3/uL Normal 0-5 [facility] Comment on above: Performed By: #### M 100.651, L100.0100, L300.3900, L500.2500, L300.4310 #### [facility] [address] [place], [address] Platelet mean volume (Bld) [Entitic vol] 9.7 fL Normal 6.2-12.0 [facility] Comment on above: Performed By: #### M 100.651, L100.0100, L300.3900, L500.2500, L300.4310 #### [facility] [address] [place], [address] Platelets (Bld) [#/Vol] 225 10*3/uL Normal 150-450 [facility] Comment on above: Performed By: #### M 100.651, L100.0100, L300.3900, L500.2500, L300.4310 #### [facility] [address] [place], [address] RBC (Bld) [#/Vol] 5.00 10*6/uL Normal 4.6-6.2 [facility] Comment on above: Performed By: #### M 100.651, L100.0100, L300.3900, L500.2500, L300.4310 #### [facility] [address] [place], [address] RDW SD 40.3 fl Normal 35.1-43.9 [facility] Comment on above: Performed By: #### M 100.651, L100.0100, L300.3900, L500.2500, L300.4310 #### [facility] [address] [place], [address] WBC (Bld) [#/Vol] 4.5 10*3/uL Normal 4.4-11.0 [facility] Comment on above: Performed By: #### M 100.651, L100.0100, L300.3900, L500.2500, L300.4310 #### [facility] [address] [place], [address] Chest PA and Lateralon 03-08 Chest PA and Lateral [facility] Imaging Services [address] [place] [address] Chest PA and Lateral MR#: [id number] Acct: [id number] Name: MING FIGUEROA Rep #: [id number] : 1985 M 38 From: Taras ramirez MD PCP: Dr. Zaida Lancaster MD Status: PRE [facility] Study: Chest PA and Lateral Date of Exam: 03/08/24 Exam# [id number] Ordering Dr: James Aleman DO [id number] STUDY: X-RAY CHEST REASON FOR EXAM: Male, 38 years old. PREOP TECHNIQUE: PA and lateral views of the chest. COMPARISON: Comparison is made with prior study May 18, 2007. FINDINGS: The lungs are clear and expanded. There is no demonstrated pleural abnormality. Normal size heart. Normal mediastinum and marie. Normal visualized pulmonary arteries. Normal visualized aortic arch and descending thoracic aorta. Normal visualized thoracic spine. Normal visualized ribs, clavicles, and shoulders. There is no demonstrated abnormality of the visualized soft tissue structures of the upper abdomen. RAD/Chest PA and Lateral IMPRESSION: Normal x-ray examination of the chest. Electronically Signed: Taras Miguel MD at 14:52 EDT , CC: Dr. Zaida Lancaster MD; Dr. James Aleman DO Mounter Clarinets: Signed Normal [facility] Partial Thromboplast Timeon 03-08-2024 aPTT Coag (Bld) [Time] 27.8 s Normal 24.1-36.2 [facility] Comment on above: Performed By: #### M 100.651, L100.0100, L300.3900, L500.2500, L300.4310 #### [facility] [address] [place], [address] Prothrombin Time w/INRon INR Coag (PPP) [Relative time] 1.0 {INR} Normal [facility] Comment on above: Performed By: #### M 100.651, L100.0100, L300.3900, L500.2500, L300.4310 #### [facility] [address] [place], [address] PT Coag (PPP) [Time] 13.3 s Normal 11.7-14.9 [facility] Comment on above: Performed By: #### M 100.651, L100.0100, L300.3900, L500.2500, L300.4310 #### [facility] [address] [place], [address] PT D/C Summary (1)on 024 PT D/C Summary (1) [facility] Physical Therapy [facility] [place] [address] / REHABILITATION SERVICES DISCHARGE SUMMARY MR#: [id number] Acct: [id number] Name: MING FIGUEROA Rep #: [id number] : 1985 38 From: Bret Watson PT, Cert. T, OCS Referring Dr.: Dr. Zaida Lancaster MD Status: RE [facility] Insurance: [facility] [id number] SELF PAY INSURANCE Discharge Summary D/C summary: It has been my pleasure to treat MING FIGUEROA referred by Dr. Zaida Lancaster MD, with the diagnosis of LEFT HAMSTRING STRAIN for a total of 11 visit(s). Discharge Date: Please see the following information for a summary of their discharge status. 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 Thank you for the referral of this patient. Sincerely, Bret Watson, PT, Cert MDT, OCS Balance/Gait/Functio nal tests Balance/Special Test Scores Oswestry Low Back Score: 4 Improvement % Improvement: 80 02/03/24 1350 CC: Dr. Zaida Lancaster MD JLA Signed Normal [facility] Basophil percentageOrdered B y: Zaida Lancaster on 04-25-2023 Chloride [Moles/Vol] 104 mmol/L 98-107 [facility] Cholesterol [Mass/Vol] 147 mg/dL <200 [facility] Comment on above: <200 mg/dL Desirable 200-240 mg/dL Borderline >240 mg/dL High Risk Glucose [Mass/Vol] 95 mg/dL 74-106 [facility] Potassium [Moles/Vol] 4.5 mmol/L 3.5-5.1 [facility] Sodium [Moles/Vol] 137 mmol/L 136-145 [facility] Triglyceride [Mass/Vol] 192 mg/dL <199 [facility] Comment on above: The drugs N-Acetylcy steine and Metamizole may falsely depress this assay.Serum Triglycerides Reference Interval Normal <150 mg/dL Borderline high 150 - 199 mg/dL High 200 - 499 mg/dL Very High > or = 500 mg/dL Laboratory - Chemistry and C hemistry - challengeOrdered By: Zaida Lancaster on 04-25-2023 ALT [Catalytic activity/Vol] 38 U/L 16-61 [facility] CO2 [Moles/Vol] 30.0 mmol/L 21.0-32.0 [facility] Urea nitrogen/Creatinine [Mass ratio] 13.6 mg/mg 10-20 [facility] No Panel InformationOrdered By: Zaida Lancaster on 04-25-2023 Estimated GFR (MDRD) Amer 114 mL/min >60 [facility] Comment on above: GFR Calc Estimated GFR (MDRD) Non-Af Amer 94 mL/min >60 [facility] Comment on above: Non- GFR Calc Urine Microalbumin/Creatinine Ratio TNP [facility] Comment on above: Test not performed Serum or plasma calcium mino urement (mass/volume)Ordered By: Zaida Lancaster on 04-25-2023 Calcium [Mass/Vol] 9.5 mg/dL 8.5-10.1 [facility] Serum or plasma cholesterol in HDL measurement (mass/volume)Ordered By: Zaida Lancaster on 04-25-2023 Cholesterol in HDL [Mass/Vol] 45 mg/dL >40 [facility] Comment on above: The drugs N-Acetylcy steine and Metamizole may falsely depress this assay. Reference Range HDL <40 mg/dL Low HDL Cholesterol HDL >or= 60 mg/dL High HDL Cholesterol Serum or plasma cholesterol in VLDL measurement (mass/volume)Ordered By: Zaida Lancaster on 04-25-2023 Cholesterol in VLDL [Mass/Vol] 38 mg/dL 5-40 [facility] Serum or plasma creatinine m easurement (mass/volume)Ordered By: Zaida Lancaster on 04-25-2023 Creatinine [Mass/Vol] 0.96 mg/dL 0.70-1.30 [facility] Comment on above: The validity of the calculated GFR & GFRAA in patients over 70 years has not been determined. Clinical correlation is essential. Serum or plasma low density lipoprotein (LDL) cholesterol measurement (mass/volume)Ordered By: Zaida Lancaster on 04-25-2023 Cholesterol in LDL [Mass/Vol] 64 mg/dL 0-130 [facility] Serum or plasma urea nitroge n measurement (mass/volume)Ordered By: Zaida Lancaster on 04-25-2023 Urea nitrogen [Mass/Vol] 13 mg/dL 7-18 [facility] Thin prep Papanicolaou smear with manual screeningOrdered By: Zaida Lancaster on 04-25-2023 Thin prep Papanicolaou smear with manual screening 21 U/L 15-37 [facility] Thin prep Papanicolaou smear with manual screening 3 5-15 [facility] Thin prep Papanicolaou smear with manual screening < 5.0 mg/L NO RANGE EST. [facility] Urine creatinine measurement (mass/volume)Ordered By: Zaida Lancaster on 04-25-2023 Creatinine (U) [Mass/Vol] 37.60 mg/dL NO RANGE EST. [facility] CNPNon 07-02-2022 CNPN Telephone (NEURMM) MING FIGUEROA ([id number]) 1985 M Date Time Provider Department 07/02/22 [facility] During your visit today, we recorded the following information about you: Laverne Farris MA 07/02/2022 8:54 AM Signed Received eye exam from [facility] Placed on Dr. Finch desk for review. Jon Finch MD 07/02/2022 9:12 AM Signed July 02, 2022 9:12 AM 07/01/2022 Dr. Sorto eye exam: overall normal Jon Finch MD Staff, General Neurology Laverne Farris MA 07/02/2022 10:00 AM Signed Results sent to abigail Davis RN 08/04/2022 3:35 PM Signed Received voicemail 08-04-22 at 2:03 PM. Yeah this is Fredis Figueroa [phone]. I wasn't sure if I needed to go to the Eye doctor with [facility] because it was scheduled way way out. I had done one here local that I'm friends with and they should've updated the chart to you guys and I guess I just want to verify that and wondered what the next step would be. Just curious on that. So I guess just let me know. Thank you. Bye. Call back to patient. Stated that this eye exam from Dr. Sorto was reviewed by Dr. Finch and was normal. Patient inquiring if eye exam with [facility] scheduled for 10-18-22 was needed still. He wasn't sure if Dr. Finch was looking for anything further or if the appointment he went to was sufficient. Forwarded to Dr. Finch for review. JENNY Caballero, RN August 04, 2022 3:35 PM Nicky Davis RN 08/04/2022 4:03 PM Signed Jon Finch MD You 13 minutes ago (3:47 PM) Please ask him to still keep the appointment. Dr. Worrell is a neuro-ophthalmologis t which is a specialty within ophthalmology. It's reassuring that the routine eye exam is normal, but neuro-ophthalmologis ts are also trained to look at eye movement abnormalities in more detail. Call to patient to advise to keep appointment. Patient verbalized understanding. JENNY Caballero, RN August 04, 2022 4:03 PM Allergies As of Date: 07/02/2022 Noted Allergy Reaction AMOXICILLIN 06/18/2022 4 - Hives Date Reviewed: 06/25/2022 Reviewed by: Nicole Bernard RT(R) - Fully Assessed Reason for Visit: Patient Update [1234] Prescriptions as of 08/04/2022 - LISINOPRIL ORAL Take 10 mg by mouth once daily. - escitalopram oxalate (LEXAPRO) 10 mg tablet Take 10 mg by mouth once daily. - rosuvastatin (CRESTOR) 10 mg tablet Take 10 mg by mouth once daily. Problem List As Of Date: 07/02/2022 (None) Encounter Status:Closed by JON FINCH on 07/02/22 [facility] 06-30-2022 [place] Telephone (NEIND4) MING FIGUEROA ([id number]) 1985 M Date Time Provider Department 06/30/22 JON FINCH NEIND4 During your visit today, we recorded the following information about you: Nicky Davis RN 06/30/2022 10:21 AM Signed Jon Finch MD [place] Dr Finch Clinical Pool 12 minutes ago (10:04 AM) Appreciate your help calling patient at [phone] to let him know that the blood vessels on the CT scan were normal. Would he still like to see our neuro-ophthalmologis t as we had discussed? If so, please have him call [phone] for an appointment. Thank you! Jon Finch MD Call to patient. Advised that CT scan was normal per Dr. Finch's message above. Provided phone number to set up appt. JENNY Caballero, RN June 30, 2022 10:21 AM Allergies As of Date: 06/30/2022 Noted Allergy Reaction AMOXICILLIN 06/18/2022 4 - Hives Date Reviewed: 06/25/2022 Reviewed by: Nicole Bernard, RT(R) - Fully Assessed Reason for Visit: Results [95] Primary Visit Diagnosis:Diplopia [H53.2] Order(s):CONSULT TO OPHTHALMOLOGY [9024] Order #: [id number]: 1 FUTURE Prescriptions as of 06/30/2022 - LISINOPRIL ORAL Take 10 mg by mouth once daily. - escitalopram oxalate (LEXAPRO) 10 mg tablet Take 10 mg by mouth once daily. - rosuvastatin (CRESTOR) 10 mg tablet Take 10 mg by mouth once daily. Problem List As Of Date: 06/30/2022 (None) Encounter Status:Closed by NICKY DAVIS on 06/30/22 Normal [facility] CTA HEAD WO/W IVCONon 2021 CTA HEAD WO/W IVCON * * *Final Report* * * DATE OF EXAM: Jun 30 2022 9:24AM [facility] 0023 - CTA HEAD WO/W IVCON / PROCEDURE REASON: multiple diagnoses * * * * Physician Interpretation * * * * EXAMINATION: CTA HEAD WO/W IVCON, CTA NECK W IVCON HISTORY: Diplopia. TECHNIQUE: Routine CT of the brain without IV contrast. Next, high resolution axial images were obtained through the head, neck and superior mediastinum following bolus administration of intravenous contrast for CT angiography. 3D maximum intensity projection images were created, reviewed and archived . MQ: CTABNPlus_4 Contrast: 85 mL Omnipaque [address] Radiation dose: Integrated Dose-Length Product (DLP) for this visit = 1596 mGy*cm. CT Dose Reduction Employed: Automated exposure control(AEC) and iterative recon COMPARISON: None. RESULT: BRAIN: Acute change: No evidence of an acute infarct or other acute parenchymal process. ASPECT Score = 10 Hemorrhage: No evidence of acute intracranial hemorrhage. ECASS hemorrhagic transformation score: Not Applicable Mass Lesion / Mass Effect: There is no evidence of an intracranial mass or extra-axial fluid collection. No significant mass effect. Chronic change: None apparent. Parenchyma: There is no significant volume loss. The brain parenchyma is otherwise within normal limits for age. Ventricles: The ventricles are within normal limits of size and configuration for age. Other: Mild mucosal thickening within the RIGHT maxillary sinus. NECK: Soft tissues: The soft tissue planes are maintained throughout. No evidence of a soft tissue mass in the neck or superior mediastinum. No significant lymphadenopathy is seen. Spine: Alignment is normal. Minimal degenerative changes are present. Lung apices: The visualized lung apices are clear. CT ARTERIOGRAM: Extracranial Circulation: Aortic Arch: There is a normal branching pattern from the aortic arch.. There is no significant stenosis in the proximal brachiocephalic vessels. Carotid Stenosis: Right Common: No significant stenosis. Right Internal Carotid Plaque: Mild Right Internal Carotid Stenosis (% by NASCET Criteria): Less than 30 Left Common: No significant stenosis. Left Internal Carotid Plaque: No significant plaque formation. Left Internal Carotid Stenosis (% by NASCET Criteria): Less than 30 Cervical Vertebral Arteries: Patency: Bilateral Dominance: Codominant Intracranial Circulation: The petrous, cavernous, and supraclinoid internal carotid arteries are patent. Anterior cerebral arteries and middle cerebral arteries are patent. Intracranial vertebral arteries, basilar artery, and posterior cerebral arteries are patent. No vessel cutoffs or aneurysms are identified. Jig Grinder Set Up Operator (topogram) images: Noncontributory. IMPRESSION: No large vessel occlusion or high-grade stenosis. No acute intracranial process. Arterial blood flow was measured to detect acute large vessel occlusion by computer aided detection software: Not Performed. Concordance between software and imaging review: Not Applicable. Mounter Clarinets: PSCB Transcribe Date/Time: Jun 30 2022 9:42A Dictated by : MARICHUY ANAND MD This examination was interpreted and the report reviewed and electronically signed by: MARICHUY ANAND MD on Jun 30 2022 9:55AM EST [id number] Normal [facility] CTA NECK W IVCONon 2 CTA NECK W IVCON * * *Final Report* * * DATE OF EXAM: Jun 30 2022 9:24AM [facility] 0024 - CTA NECK W IVCON / PROCEDURE REASON: multiple diagnoses * * * * Physician Interpretation * * * * EXAMINATION: CTA HEAD WO/W IVCON, CTA NECK W IVCON HISTORY: Diplopia. TECHNIQUE: Routine CT of the brain without IV contrast. Next, high resolution axial images were obtained through the head, neck and superior mediastinum following bolus administration of intravenous contrast for CT angiography. 3D maximum intensity projection images were created, reviewed and archived . MQ: CTABNPlus_4 Contrast: 85 mL Omnipaque [address] Radiation dose: Integrated Dose-Length Product (DLP) for this visit = 1596 mGy*cm. CT Dose Reduction Employed: Automated exposure control(AEC) and iterative recon COMPARISON: None. RESULT: BRAIN: Acute change: No evidence of an acute infarct or other acute parenchymal process. ASPECT Score = 10 Hemorrhage: No evidence of acute intracranial hemorrhage. ECASS hemorrhagic transformation score: Not Applicable Mass Lesion / Mass Effect: There is no evidence of an intracranial mass or extra-axial fluid collection. No significant mass effect. Chronic change: None apparent. Parenchyma: There is no significant volume loss. The brain parenchyma is otherwise within normal limits for age. Ventricles: The ventricles are within normal limits of size and configuration for age. Other: Mild mucosal thickening within the RIGHT maxillary sinus. NECK: Soft tissues: The soft tissue planes are maintained throughout. No evidence of a soft tissue mass in the neck or superior mediastinum. No significant lymphadenopathy is seen. Spine: Alignment is normal. Minimal degenerative changes are present. Lung apices: The visualized lung apices are clear. CT ARTERIOGRAM: Extracranial Circulation: Aortic Arch: There is a normal branching pattern from the aortic arch.. There is no significant stenosis in the proximal brachiocephalic vessels. Carotid Stenosis: Right Common: No significant stenosis. Right Internal Carotid Plaque: Mild Right Internal Carotid Stenosis (% by NASCET Criteria): Less than 30 Left Common: No significant stenosis. Left Internal Carotid Plaque: No significant plaque formation. Left Internal Carotid Stenosis (% by NASCET Criteria): Less than 30 Cervical Vertebral Arteries: Patency: Bilateral Dominance: Codominant Intracranial Circulation: The petrous, cavernous, and supraclinoid internal carotid arteries are patent. Anterior cerebral arteries and middle cerebral arteries are patent. Intracranial vertebral arteries, basilar artery, and posterior cerebral arteries are patent. No vessel cutoffs or aneurysms are identified. Jig Grinder Set Up Operator (topogram) images: Noncontributory. IMPRESSION: No large vessel occlusion or high-grade stenosis. No acute intracranial process. Arterial blood flow was measured to detect acute large vessel occlusion by computer aided detection software: Not Performed. Concordance between software and imaging review: Not Applicable. Mounter Clarinets: MADIHA Transcribe Date/Time: Jun 30 2022 9:42A Dictated by : MARICHUY ANAND MD This examination was interpreted and the report reviewed and electronically signed by: MARICHUY ANAND MD on Jun 30 2022 9:55AM EST [id number] Normal [facility] No Panel Informationon 06-30 [facility] ACETYLCHO R MOD ABon 022 ACETYLCHOLINE RECEPT/MODULATING 2 % Normal <=45 [facility] Comment on above: Order Comment: Speci men Type: BLOOD SPECIMEN [facility]ing Facility: [facility] Address: [address] [place] [phone] Result Comment: INTE RPRETIVE INFORMATION: Acetylcholine Modulating Ab Negative .......... 0-45 percent modulating Positive .......... 46 percent or greater modulating Approximately 85-90 percent of patients with myasthenia gravis (MG) express antibodies to the acetylcholine receptor (AChR), which can be divided into binding, blocking, and modulating antibodies. Binding antibody can activate complement and lead to loss of AChR. Blocking antibody may impair binding of acetylcholine to the receptor, leading to poor muscle contraction. Modulating antibody causes receptor endocytosis resulting in loss of AChR expression, which correlates most closely with clinical severity of disease. Approximately 10-15 percent of individuals with confirmed myasthenia gravis have no measurable binding, blocking, or modulating antibodies. This test was developed and its performance characteristics determined by [facility]. It has not been cleared or approved by the [place] Food and Drug Administration. This test was performed in a CLIA certified laboratory and is intended for clinical purposes. Performed By: [facility] [address] [place] [address] Keymodule Assembly Supervisor: Marcio Garrett MD, PhD Performed By: #### A CEMOD #### [facility] CLIA [id number] [address] [place] [address] ACETYLCHOLINE REC BINDING AB on 06-18-2022 ACETYLCHOLINE BINDING, QUAL Negative Normal Negative [facility] Comment on above: Order Comment: Speci chelo Type: BLOOD SPECIMEN [facility]ing Facility: [facility] Address: [address] [place] [address] Result Comment: Anti -acetylcholine receptor binding antibody test is used as an aid in diagnosis of myasthenia gravis. A negative result cannot exclude myasthenia gravis. Clinical correlation is required. Performed By: #### A CHRAB #### [facility] CLIA [id number] [address] [place] [address] [place] Acetylcholine receptor binding Ab (S) [Moles/Vol] <0.02 Normal <0.21 [facility] Comment on above: Order Comment: Esdras whitney Type: BLOOD SPECIMEN [facility]ing Facility: [facility] Address: [address] [place] [address] Performed By: #### A CHRAB #### [facility] CLIA [id number] [address] [place] [address] [place] ACETYLCHOLINE REC BLOCKING A Bon 06-18-2022 ACETYLCHOLINE BLOCKING, QUAL Negative Normal Negative [facility] Comment on above: Order Comment: Esdras whitney Type: BLOOD SPECIMEN [facility]ing Facility: [facility] Address: [address] [place] [address] Result Comment: Anti -acetylcholine receptor blocking antibody test is used as an aid in diagnosis of myasthenia gravis. A negative result cannot exclude myasthenia gravis. Clinical correlation is required. Performed By: #### A CEBAB #### [facility] CLIA [id number] [address] [place] [address] Acetylcholine receptor blocking Ab/Acetylcholine Ab.total (S) [Molar fraction] <13 Normal <21 [facility] Comment on above: Order Comment: Speci men Type: BLOOD SPECIMEN [facility]ing [facility]: [facility] Address: [address] [place] [address] Performed By: #### A CEBAB #### [facility] CLIA [id number] [address] [place] [address] CBC W Auto Differential pane l (Bld)on 06-18-2022 Basophils (Bld) [#/Vol] 10*3/uL Normal <0.11 [facility] Comment on above: Order Comment: Speci men Type: BLOOD SPECIMEN Ordering Facility: [facility] Address: [address] [place] [address] Performed By: #### 5 7021-8 #### [facility] CLIA [id number] [address] Basophils/100 WBC (Bld) 0.0 % Normal [facility] Comment on above: Order Comment: Speci men Type: BLOOD SPECIMEN Ordering Facility: [facility] Address: [address] [place] [address] Performed By: #### 5 7021-8 #### [facility] CLIA [id number] [address] Differential cell count method Nom (Bld) Auto Normal [facility] Comment on above: Order Comment: Speci men Type: BLOOD SPECIMEN Ordering Facility: [facility] Address: [address] [place] [address] Performed By: #### 5 7021-8 #### [facility] CLIA [id number] [address] [place] [address] [place] Eosinophils (Bld) [#/Vol] 0.03 10*3/uL Normal <0.46 [facility] Comment on above: Order Comment: Speci men Type: BLOOD SPECIMEN [facility]ing Facility: [facility] Address: [address] [place] [address] Performed By: #### 5 7021-8 #### [facility] CLIA [id number] [address] [place] Eosinophils/100 WBC (Bld) 1.0 % Normal [facility] Comment on above: Order Comment: Speci men Type: BLOOD SPECIMEN Ordering Facility: [facility] Address: [address] [place] [address] Performed By: #### 5 7021-8 #### [facility] CLIA [id number] [address] [place] Erythrocyte distribution width (RBC) [Ratio] 12.4 % Normal 11.5-15.0 [facility] Comment on above: Order Comment: Speci men Type: BLOOD SPECIMEN Ordering Facility: [facility] Address: [address] [place] [address] Performed By: #### 5 7021-8 #### [facility] CLIA [id number] [address] [place] Hematocrit (Bld) [Volume fraction] 44.6 % Normal 39.0-51.0 [facility] Comment on above: Order Comment: Speci men Type: BLOOD SPECIMEN [facility]ing Facility: [facility] Address: [address] [place] [address] Performed By: #### 5 7021-8 #### [facility] CLIA [id number] [address] [place] Hemoglobin (Bld) [Mass/Vol] 15.0 g/dL Normal 13.0-17.0 [facility] Comment on above: Order Comment: Speci men Type: BLOOD SPECIMEN Ordering Facility: [facility] Address: [address] [address] Performed By: #### 5 7021-8 #### [facility] CLIA [id number] [address] Immature granulocytes (Bld) [#/Vol] 10*3/uL Normal <0.10 [facility] Comment on above: Order Comment: Speci men Type: BLOOD SPECIMEN Ordering Facility: [facility] Address: [address] [place] [address] Performed By: #### 5 7021-8 #### [facility] CLIA [id number] [address] Immature granulocytes/100 WBC (Bld) 0.3 % Normal [facility] Comment on above: Order Comment: Speci men Type: BLOOD SPECIMEN Ordering Facility: [facility] Address: [address] [address] Performed By: #### 5 7021-8 #### [facility] CLIA [id number] [address] [place] Lymphocytes (Bld) [#/Vol] 1.58 10*3/uL Normal 1.00-4.00 [facility] Comment on above: Order Comment: Speci men Type: BLOOD SPECIMEN Ordering Facility: [facility] Address: [address] [address] Performed By: #### 5 7021-8 #### [facility] CLIA [id number] [address] Lymphocytes/100 WBC (Bld) 54.9 % Normal [facility] Comment on above: Order Comment: Speci men Type: BLOOD SPECIMEN Ordering Facility: [facility] Address: [address] [place] [address] Performed By: #### 5 7021-8 #### [facility] CLIA [id number] [address] [place] MCH (RBC) [Entitic mass] 29.3 pg Normal 26.0-34.0 [facility] Comment on above: Order Comment: Speci men Type: BLOOD SPECIMEN Ordering [facility] Address: [address] [address] Performed By: #### 5 7021-8 #### [facility] CLIA [id number] [address] [place] [facility] MCHC (RBC) [Mass/Vol] 33.6 g/dL Normal 30.5-36.0 [facility] Comment on above: Order Comment: Speci men Type: BLOOD SPECIMEN Ordering Facility: [facility] Address: [address] [place], [place] [address] Performed By: #### 5 7021-8 #### [facility] CLIA [id number] [address] [place] MCV (RBC) [Entitic vol] 87.1 fL Normal 80.0-100.0 [facility] Comment on above: Order Comment: Speci men Type: BLOOD SPECIMEN Ordering [facility] Address: [address] [address] Performed By: #### 5 7021-8 #### [facility] CLIA [id number] [address] [place] Monocytes (Bld) [#/Vol] 0.45 10*3/uL Normal <0.87 [facility] Comment on above: Order Comment: Speci men Type: BLOOD SPECIMEN [facility]ing [facility] Address: [address] [place] [address] Performed By: #### 5 7021-8 #### [facility] CLIA [id number] [address] Monocytes/100 WBC (Bld) 15.6 % Normal [facility] Comment on above: Order Comment: Speci men Type: BLOOD SPECIMEN Ordering Facility: [facility] Address: [address] [place] [address] Performed By: #### 5 7021-8 #### [facility] CLIA [id number] [address] [place] Neutrophils (Bld) [#/Vol] 0.81 10*3/uL Low 1.45-7.50 [facility] Comment on above: Order Comment: Speci men Type: BLOOD SPECIMEN [facility] Address: [address] [address] Performed By: #### 5 7021-8 #### [facility] CLIA [id number] [address] [place] Neutrophils/100 WBC (Bld) 28.2 % Normal [facility] Comment on above: Order Comment: Speci men Type: BLOOD SPECIMEN Ordering Facility: [facility] Address: [address] [address] Performed By: #### 5 7021-8 #### [facility] CLIA [id number] [address] [place] [address] [facility] [place] Nucleated RBC (Bld) [#/Vol] 10*3/uL Normal <0.01 [facility] Comment on above: Order Comment: Speci men Type: BLOOD SPECIMEN Ordering Facility: [facility] Address: [address] [address] Performed By: #### 5 7021-8 #### [facility] CLIA [id number] [address] [place] Nucleated RBC/100 WBC (Bld) [Ratio] 0.0 /100 WBC Normal [facility] Comment on above: Order Comment: Speci men Type: BLOOD SPECIMEN Ordering Facility: [facility] Address: [address] [address] Performed By: #### 5 7021-8 #### [facility] CLIA [id number] [address] [place] Platelet mean volume (Bld) [Entitic vol] 10.0 fL Normal 9.0-12.7 [facility] Comment on above: Order Comment: Speci men Type: BLOOD SPECIMEN Ordering Facility: [facility] Address: [address] [address] Performed By: #### 5 7021-8 #### [facility] CLIA [id number] [address] [place] Platelets (Bld) [#/Vol] 181 10*3/uL Normal 150-400 [facility] Comment on above: Order Comment: Speci men Type: BLOOD SPECIMEN Ordering [facility]: [facility] Address: [address] [address] Performed By: #### 5 7021-8 #### [facility] CLIA [id number] [address] [place] [address] [place] RBC (Bld) [#/Vol] 5.12 10*6/uL Normal 4.20-6.00 [facility] Comment on above: Order Comment: Speci men Type: BLOOD SPECIMEN Ordering [facility] Address: [address] [address] Performed By: #### 5 7021-8 #### [facility] CLIA [id number] [address] WBC (Bld) [#/Vol] 2.88 10*3/uL Low 3.70-11.00 [facility] Comment on above: Order Comment: Speci men Type: BLOOD SPECIMEN [facility]ing [facility] Address: [address] [address] Performed By: #### 5 7021-8 #### [facility] CLIA [id number] [address] [place] Basophils (Bld) [#/Vol] <0.11 k/uL [facility] Basophils/100 WBC (Bld) 0.0 % [facility] Differential cell count method Nom (Bld) Auto [facility] Eosinophils (Bld) [#/Vol] 0.03 10*3/uL <0.46 k/uL [facility] Eosinophils/100 WBC (Bld) 1.0 % [facility] Erythrocyte distribution width (RBC) [Ratio] 12.4 % 11.5 - 15.0 % [facility] Hematocrit (Bld) [Volume fraction] 44.6 % 39.0 - 51.0 % [facility] Hemoglobin (Bld) [Mass/Vol] 15.0 g/dL 13.0 - 17.0 g/dL [facility] Immature granulocytes (Bld) [#/Vol] <0.10 k/uL [facility] Immature granulocytes/100 WBC (Bld) 0.3 % [facility] Lymphocytes (Bld) [#/Vol] 1.58 10*3/uL 1.00 - 4.00 k/uL [facility] Lymphocytes/100 WBC (Bld) 54.9 % [facility] MCH (RBC) [Entitic mass] 29.3 pg 26.0 - 34.0 pg [facility] MCHC (RBC) [Mass/Vol] 33.6 g/dL 30.5 - 36.0 g/dL [facility] MCV (RBC) [Entitic vol] 87.1 fL 80.0 - 100.0 fL [facility] Monocytes (Bld) [#/Vol] 0.45 10*3/uL <0.87 k/uL [facility] Monocytes/100 WBC (Bld) 15.6 % [facility] Neutrophils (Bld) [#/Vol] 0.81 10*3/uL Low 1.45 - 7.50 k/uL [facility] Neutrophils/100 WBC (Bld) 28.2 % [facility] Nucleated RBC (Bld) [#/Vol] <0.01 k/uL [facility] Nucleated RBC/100 WBC (Bld) [Ratio] 0.0 /100 WBC [facility] Platelet mean volume (Bld) [Entitic vol] 10.0 fL 9.0 - 12.7 fL [facility] Platelets (Bld) [#/Vol] 181 10*3/uL 150 - 400 k /uL [facility] RBC (Bld) [#/Vol] 5.12 10*6/uL 4.20 - 6.0 0 m/uL [facility] WBC (Bld) [#/Vol] 2.88 10*3/uL Low 3.70 - 11. 00 k/uL [facility] CK CREATINE KINASEon 022 CK [Catalytic activity/Vol] 196 U/L 51 - 298 U/L [facility] CK SerPl-cCncon 06-18-2022 CK [Catalytic activity/Vol] 196 U/L Normal 51-298 [facility] Comment on above: Order Comment: Speci men Type: BLOOD SPECIMEN [facility]ing [facility] Address: [address] [place] [phone] Performed By: #### 2 4323-8, 2157-6, 3016-3 #### [facility] CLIA [id number] [address] [place] [address] [facility] CNOVon 06-18-2022 CNOV Office Visit (NEURMM) MING [id number]) 1985 M Date Time Provider Department 06/18/22 9:00 AM JON FINCH During your visit today, we recorded the following information about you: Pulse Blood pressure Weight Height 79/minute 130/89 95 kg 1.829 m Jon Finch MD 06/18/2022 9:39 AM Signed [facility] - new patient evaluation Date: June 18, 2022 Patient Name: Ming Figueroa Referring physician: Zaida Lancsater MD ([facility]) [address] [facility] [address] [facility] [address] Primary physician: Zaida Lancaster MD ([facility]) [address] [facility] [address] [id number] Reason for Evaluation: intermittent diplopia HPI: The pt is a 37yo Right handed male with hx of - HTN - HLD Presenting for evaluation of intermittent diplopia. Accompanied by his . Patient provides verbal permission for all medical information to be shared with his Per patient, he's been having intermittent binocular horizontal diplopia for the last year. No preceding illness, head trauma, or new medicines. He's never had similar symptoms in the past. The episodes typically lasts 10-15 min but he had a long one lasting about an hour as well. He denies vertigo or imbalance with it, just that his vision goes funny. He is always doing something when the episodes happen. If he stops the activity, the symptoms improve. If he pushes through with the activity, the symptoms will last longer while he's active. There is no positional component since it can happen both standing and sitting. He denies associated chest pain, palpitations, SOB, loss of vision. If he closes one eye, doesn't matter which, the vision improves. Episodes are unpredictable, no diurnal pattern. He can go weeks without an episode or it can happen daily for a few days back to back. He's not too bothered by it until he had the hour-long episode. His does have migraines and has odd auras and wonders if he may be too, though he's never had a headache with these spells. His has observed one of these spells and says she didn't see any abnormal eye movements. Patient was even able to tandem gait independently during a spell He denies tobacco, alcohol, or other drug use. 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 He's had ENT assessment recently, however, that was unrevealing. He denies history of known strabismus as a child OUTPATIENT MEDICATIONS No current outpatient medications on file prior to visit. No current facility-administere d medications on file prior to visit. MEDICAL HISTORY No past medical history on file. SURGICAL HISTORY No past surgical history on file. SOCIAL HISTORY Social History Tobacco Use Smoking status: Never Smokeless tobacco: Never FAMILY HISTORY No family history on file. ALLERGIES ALLERGIES Allergen Reactions Amoxicillin Hives REVIEW OF SYSTEMS: No fevers, chills No chest pain No SOB No constipation, diarrhea No paresthesias No falls +chronic tinnitus PHYSICAL EXAM: BP 130/89 (BP Site: Left Arm, BP Position: Sitting, BP Cuff Size: Large Adult) Pulse 79 Ht 182.9 cm (6') Wt 95 kg (209 lb 8 oz) SpO2 98% BMI 28.41 kg/m? Head: Normocephalic, atraumatic. Neurological exam: Mental Status: Alert, oriented to person, place and time and Follows commands. Cranial Nerves: PERRL, visual jack intact to confrontation, extraocular movements intact, facial sensation intact, face symmetric, no facial droop or ptosis, hearing intact to finger rub bilaterally, no dysarthria, and shoulder shrug intact and symmetric. Able to sustain upward gaze without ptosis for 60 seconds, did have some blurred vision OD at about the 20 second pavan Motor: Right Upper: Left Upper: Deltoid: 5 Deltoid: 5 Triceps: 5 Triceps: 5 Biceps: 5 Biceps: 5 Skiver Box Toe: 5 Skiver Box Toe: 5 Finger abduction: 5 Finger abduction: 5 Finger adduction: 5 Finger adduction: 5 Right Lower: Left Lower: Iliopsoas: 5 Iliopsoas: 5 Knee flexor: 5 Knee flexor: 5 Knee extensor: 5 Knee extensor: 5 Dorsiflexion: 5 Dorsiflexion: 5 Plantarflexion: 5 Plantarflexion: 5 Able to count to >40 in 1 breath on three separate trials Motor Tone: Right Upper: Normal tone Left Upper: Normal tone Right Lower: Normal tone Left Lower: Normal tone Reflexes: 2/4 biceps, brachioradialis, patellars. Downgoing plantars. No clonus Sensation: intact BUE and BLE to touch, temperature, vibration, proprioception, pinprick Coordination: Finger-to- nose-finger intact bilaterally and Cvtz-ra-zzkx intact bilaterally. Gait: normal-based. Normal tiptoe, heel, tandem gait Romberg: neg ASSESSMENT: The pt is a 37 year old male with a history of HTN, HLD who presents with intermittent binocular horizontal diplopia. His neurological exa (more content not included)... Normal [facility] Comprehensive metabolic 2000 panelon 06-18-2022 Albumin [Mass/Vol] 4.7 g/dL Normal 3.9-4.9 [facility] Comment on above: Order Comment: Sylviai men Type: BLOOD SPECIMEN [facility] Address: [address] [place] [address] Performed By: #### 2 4323-8, 6, 6-3 #### [facility] CLIA [id number] [address] ALP [Catalytic activity/Vol] 83 U/L Normal 38-113 [facility] Comment on above: Order Comment: Sylviai chelo Type: BLOOD SPECIMEN Ordering [facility] Address: [address] [place] [address] Performed By: #### 2 4323-8, 2156-12, 6-3 #### [facility] CLIA [id number] [address] ALT [Catalytic activity/Vol] 25 U/L Normal 10-54 [facility] Comment on above: Order Comment: Speci men Type: BLOOD SPECIMEN Ordering Facility[facility] Address: [address] [place] [address] Performed By: #### 2 4323-8, 6, 6-3 #### [facility] CLIA [id number] [address] Anion gap [Moles/Vol] 8 mmol/L Low 9-18 [facility] Comment on above: Order Comment: Speci men Type: BLOOD SPECIMEN Ordering Facility[facility] Address: [address] [place] [place] [address] Performed By: #### 2 4323-8, 2156-12, 3 #### [facility] CLIA [id number] [address] STATES OF [facility] AST [Catalytic activity/Vol] 25 U/L Normal 14-40 [facility] Comment on above: Order Comment: Speci men Type: BLOOD SPECIMEN Ordering Facility[facility] Address: [address] [place] [address] Performed By: #### 2 4323-8, 2156-12, 3 #### [facility] CLIA [id number] [address] [place] [address] [place] Bilirubin [Mass/Vol] 0.6 mg/dL Normal 0.2-1.3 [facility] Comment on above: Order Comment: Speci men Type: BLOOD SPECIMEN Ordering [facility] Address: [address] [place] [address] Performed By: #### 2 4323-8, 2156-12, 3 #### [facility] CLIA [id number] [address] [place] [address] [place] Calcium [Mass/Vol] 9.5 mg/dL Normal 8.5-10.2 [facility] Comment on above: Order Comment: Speci men Type: BLOOD SPECIMEN Ordering Facility: [facility] Address: [address] [place] [address] Performed By: #### 2 4323-8, 2156-12, 3 #### [facility] CLIA [id number] [address] [place] [address] [place] Chloride [Moles/Vol] 101 mmol/L Normal 97-105 [facility] Comment on above: Order Comment: Speci men Type: BLOOD SPECIMEN [facility] Address: [address] [place] [address] Performed By: #### 2 4323-8, 2156-12, 3 #### [facility] CLIA [id number] [address] [place] [address] [place] CO2 [Moles/Vol] 29 mmol/L Normal 22-30 [facility] Comment on above: Order Comment: Esdras whitney Type: BLOOD SPECIMEN Ordering [facility] Address: [address] Performed By: #### 2 4323-8, 2156-6, 6-3 #### [facility] CLIA [id number] [address] [place] Creatinine [Mass/Vol] 0.97 mg/dL Normal 0.73-1.22 [facility] Comment on above: Order Comment: Esdras whitney Type: BLOOD SPECIMEN [facility] Address: [address] [place] [address] Performed By: #### 2 4323-8, 2156-12, 3 #### [facility] CLIA [id number] [address] ESTIMATED GLOMERULAR FILTRATION RATE 104 mL/min/1.73m??? Normal >=60 [facility] Comment on above: Order Comment: Esdras whitney Type: BLOOD SPECIMEN [facility]ing [facility] Address: [address] [place] [address] Result Comment: Yecenia mated Glomerular Filtration Rate (eGFR) is calculated using the 2020 CKD-EPI creatinine equation. This equation utilizes serum creatinine, sex, and age as parameters. The creatinine assay has traceable calibration to isotope dilution-mass spectrometry. Refer to KDIGO guidelines for clinical interpretation. In patients with unstable renal function, e.g. those with acute kidney injury, the eGFR may not accurately reflect actual GFR. Performed By: #### 2 4323-8, 6, 6-3 #### [facility] CLIA [id number] [address] [place] Glucose [Mass/Vol] 88 mg/dL Normal 74-99 [facility] Comment on above: Order Comment: Esdras whitney Type: BLOOD SPECIMEN [facility]ing Facility[facility] Address: [address] [place], [place] [address] Result Comment: The [place] [employer] (ADA) provides guidance for cutoff values for fasting glucose and random glucose. The ADA defines fasting as no caloric intake for at least 8 hours. Fasting plasma glucose results between 100 to 125 mg/dL indicate increased risk for diabetes (prediabetes). Fasting plasma glucose results greater than or equal to 126 mg/dL meet the criteria for diagnosis of diabetes. In the absence of unequivocal hyperglycemia, results should be confirmed by repeat testing. In a patient with classic symptoms of hyperglycemia or hyperglycemic crisis, random plasma glucose results greater than or equal to 200 mg/dL meet the criteria for diagnosis of diabetes. Reference: Standards of Medical Care in Diabetes 2016, [place] [employer]. Diabetes Care. 2016.39(Suppl 1). Performed By: #### 2 4323-8, 6, 6-3 #### [facility] CLIA [id number] [address] [place] [address] [place] Potassium [Moles/Vol] 4.6 mmol/L Normal 3.7-5.1 [facility] Comment on above: Order Comment: Esdras whitney Type: BLOOD SPECIMEN Ordering Facility: [facility] Address: [address] [place] [address] Performed By: #### 2 4323-8, 2156-12, 3 #### [facility] CLIA [id number] [address] [place] [address] [place] Protein [Mass/Vol] 7.5 g/dL Normal 6.3-8.0 [facility] Comment on above: Order Comment: Esdras whitney Type: BLOOD SPECIMEN Ordering Facility: [facility] Address: [address] [place] [address] Performed By: #### 2 4323-8, 2156-12, 3 #### [facility] CLIA [id number] [address] [place] [address] [place] Sodium [Moles/Vol] 138 mmol/L Normal 136-144 [facility] Comment on above: Order Comment: Esdras whitney Type: BLOOD SPECIMEN Ordering Facility: [facility] Address: [address] [place] [address] Performed By: #### 2 4323-8, 2156-12, 6-3 #### [facility] CLIA [id number] [address] [place] [address] [place] Urea nitrogen [Mass/Vol] 11 mg/dL Normal 9-24 [facility] Comment on above: Order Comment: Speci men Type: BLOOD SPECIMEN Ordering Facility: [facility] Address: [place] [address] Performed By: #### 2 4323-8, 2157-6, 3016-3 #### [facility] CLIA [id number] [address] [place] [id number] [facility] Albumin [Mass/Vol] 4.7 g/dL 3.9 - 4.9 g/dL [facility] ALP [Catalytic activity/Vol] 83 U/L 38 - 113 U/L [facility] ALT [Catalytic activity/Vol] 25 U/L 10 - 54 U/L [facility] Anion gap [Moles/Vol] 8 mmol/L Low 9 - 18 mmol/L [facility] AST [Catalytic activity/Vol] 25 U/L 14 - 40 U/L [facility] Bilirubin [Mass/Vol] 0.6 mg/dL 0.2 - 1 .3 mg/dL [facility] Calcium [Mass/Vol] 9.5 mg/dL 8.5 - 10. 2 mg/dL [facility] Chloride [Moles/Vol] 101 mmol/L 97 - 10 5 mmol/L [facility] CO2 [Moles/Vol] 29 mmol/L 22 - 30 mmol/L [facility] Creatinine [Mass/Vol] 0.97 mg/dL 0.73 - 1.22 mg/dL [facility] Estimated Glomerular Filtration Rate 104 mL/min/1.73m >=60 mL/min/1.73m [facility] Glucose [Mass/Vol] 88 mg/dL 74 - 99 mg/dL [facility] Potassium [Moles/Vol] 4.6 mmol/L 3.7 - 5.1 mmol/L [facility] Protein [Mass/Vol] 7.5 g/dL 6.3 - 8.0 g/dL [facility] Sodium [Moles/Vol] 138 mmol/L 136 - 144 mmol/L [facility] Urea nitrogen [Mass/Vol] 11 mg/dL 9 - 24 mg/dL [facility] T3 SerPl-mCncon 06-18-2022 T3 [Mass/Vol] 101 ng/dL Normal 79-165 [facility] Comment on above: Order Comment: Speci men Type: BLOOD SPECIMEN [facility]ing Facility[facility] Address: [address] [place] [address] Performed By: #### 3 053-6, 3024-7 #### [facility] CLIA [id number] [address] [place] [address] [place] T4 Free SerPl-mCncon 022 Free T4 [Mass/Vol] 0.9 ng/dL Normal 0.9-1.7 [facility] Comment on above: Order Comment: Speci men Type: BLOOD SPECIMEN Ordering Facility: [facility] Address: [address] [place] [address] Performed By: #### 3 053-6, 3024-7 #### [facility] CLIA [id number] [address] [place] [address] [place] TSH BLDon 06-18-2022 TSH Qn 0.960 m[IU]/L 0.270 - 4.200 mIU/L [facility] TSH SerPl-aCncon 06-18-2022 TSH Qn 0.960 m[IU]/L Normal 0.270-4.200 [facility] Comment on above: Order Comment: Speci men Type: BLOOD SPECIMEN Ordering Facility: [facility] Address: [address] [place] [address] Performed By: #### 2 4323-8, 2157-6, 3016-3 #### [facility] CLIA [id number] [address] [place] [address] [place] VOLTAGE GATED CA IGGon 06-18 P/Q-TYPE CALCIUM CHANNEL ANTIBODY 0.0 pmol/L Normal 0.0-24.5 [facility] Comment on above: Order Comment: Speci men Type: BLOOD SPECIMEN Ordering Facility: [facility] Address: [address] [place] [address] Result Comment: INTE RPRETIVE INFORMATION: P/Q-Type Calcium Channel Antibody 0.0 to 24.5 pmol/L ............. Negative 24.6 to 45.6 pmol/L ............ Indeterminate 45.7 pmol/L or greater.......... Positive This test was developed and its performance characteristics determined by [facility]. It has not been cleared or approved by the US Food and Drug Administration. This test was performed in a CLIA certified laboratory and is intended for clinical purposes. Performed By: [facility] [address] [place] [address] [employer] Supervisor: Marcio Garrett MD, PhD Performed By: #### V OLTCA #### [facility] CLIA [id number] [address] [place] [address] Basophil percentageon 2021 Chloride [Moles/Vol] 105 mmol/L 98-107 [facility] Work Phone: Cholesterol [Mass/Vol] 140 mg/dL <200 [facility] Work Phone: Comment on above: <200 mg/dL Desirable 200-240 mg/dL Borderline >240 mg/dL High Risk Glucose [Mass/Vol] 97 mg/dL 74-106 [facility] Work Phone: [phone] Potassium [Moles/Vol] 4.2 mmol/L 3.5-5.1 [facility] Work Phone: Sodium [Moles/Vol] 140 mmol/L 136-145 [facility] Work Phone: Triglyceride [Mass/Vol] 118 mg/dL <199 [facility] Work Phone: Comment on above: The drugs N-Acetylcy steine and Metamizole may falsely depress this assay.Serum Triglycerides Reference Interval Normal <150 mg/dL Borderline high 150 - 199 mg/dL High 200 - 499 mg/dL Very High > or = 500 mg/dL Laboratory - Chemistry and C hemistry - challengeon 04-19-2022 ALT [Catalytic activity/Vol] 38 U/L 16-61 [facility] Work Phone: CO2 [Moles/Vol] 27.0 mmol/L 21.0-32.0 [facility] Work Phone: Urea nitrogen/Creatinine [Mass ratio] 12.4 mg/mg 10-20 [facility] Work Phone: No Panel Informationon 04-19 Estimated GFR (MDRD) Amer 113 mL/min >60 [facility] Work Phone: Comment on above: GFR Calc Estimated GFR (MDRD) Non-Af Amer 93 mL/min >60 [facility] Work Phone: Comment on above: Non- GFR Calc Urine Microalbumin/Creatinine Ratio TNP [facility] Work Phone: Comment on above: Test not performed Serum or plasma calcium mino urement (mass/volume)on 04-19-2022 Calcium [Mass/Vol] 9.2 mg/dL 8.5-10.1 [facility] Work Phone: Serum or plasma cholesterol in HDL measurement (mass/volume)on 04-19-2022 Cholesterol in HDL [Mass/Vol] 49 mg/dL >40 [facility] Work Phone: Comment on above: The drugs N-Acetylcy steine and Metamizole may falsely depress this assay. Reference Range HDL <40 mg/dL Low HDL Cholesterol HDL >or= 60 mg/dL High HDL Cholesterol Serum or plasma cholesterol in VLDL measurement (mass/volume)on 04-19-2022 Cholesterol in VLDL [Mass/Vol] 24 mg/dL 5-40 [facility] Work Phone: Serum or plasma creatinine m easurement (mass/volume)on 04-19-2022 Creatinine [Mass/Vol] 0.97 mg/dL 0.70-1.30 [facility] Work Phone: Comment on above: The validity of the calculated GFR & GFRAA in patients over 70 years has not been determined. Clinical correlation is essential. Serum or plasma low density lipoprotein (LDL) cholesterol measurement (mass/volume)on 04-19-2022 Cholesterol in LDL [Mass/Vol] 67 mg/dL 0-130 [facility] Work Phone: Serum or plasma urea nitroge n measurement (mass/volume)on 04-19-2022 Urea nitrogen [Mass/Vol] 12 mg/dL 7-18 [facility] Work Phone: Thin prep Papanicolaou smear with manual screeningon 04-19-2022 Thin prep Papanicolaou smear with manual screening 19 U/L 15-37 [facility] Work Phone: Thin prep Papanicolaou smear with manual screening 8 5-15 [facility] Work Phone: Thin prep Papanicolaou smear with manual screening < 5.0 mg/L NO RANGE EST. [facility] Work Phone: Urine creatinine measurement (mass/volume)on 04-19-2022 Creatinine (U) [Mass/Vol] 89.60 mg/dL NO RANGE EST. [facility] Work Phone: No Panel Information [facility] Vital Signs Date Time Vital Sign Value Performing Clinician Conniei keith 06-17-2023 08:23-0500 Body temperature 97.9 [degF] Dr. Zaida Lancaster Work Phone: [facility] 06-17-2023 08:23-0500 Diastolic blood pressure 85 mm[Hg] Dr. Zaida Lancaster Work Phone: [facility] 06-17-2023 08:23-0500 Heart rate 75 /min Dr. Zaida Lancaster Work Phone: [facility] 06-17-2023 08:23-0500 Respiratory rate 16 /min Dr. Zaida Lancaster Work Phone: [facility] 06-17-2023 08:23-0500 SaO2% (BldA) [Mass fraction] 100 % Dr. Zaida Lancaster Work Phone: [facility] 06-17-2023 08:23-0500 Systolic blood pressure 116 mm[Hg] Dr. Zaida Lancaster Work Phone: [facility] 06-17-2023 06:39-0500 Body height 182.[address] Zaida Lancaster Work Phone: [facility] 06-17-2023 06:39-0500 Body mass index (BMI) [Ratio] 28 kg/m2 Dr. Zaida Lancaster Work Phone: [facility] 06-17-2023 06:39-0500 Body weight [address] Zaida Lancaster Work Phone: [facility] 05-17-2023 08:36-0500 Body mass index (BMI) [Ratio] 28.3 kg/m2 Dr. Zaida Lancaster Work Phone: [facility] 05-17-2023 08:36-0500 Body weight 94.[address] Zaida Lancaster Work Phone: [facility] 05-17-2023 08:36-0500 Diastolic blood pressure 81 mm[Hg] Dr. Zaida Lancaster Work Phone: [facility] 05-17-2023 08:36-0500 Respiratory rate 16 /min Dr. Zaida Lancaster Work Phone: [facility] 05-17-2023 08:36-0500 Systolic blood pressure 119 mm[Hg] Dr. Zaida Lancaster Work Phone: [facility] 06-18-2022 08:49-0500 Body height 182.9 cm Jon Finch MD Work Phone: [facility] 06-18-2022 08:49-0500 Body weight 95.03 kg Jon Finch MD Work Phone: [facility] 06-18-2022 08:49-0500 Diastolic blood pressure 89 mm[Hg] Jon Finch MD Work Phone: [facility] 06-18-2022 08:49-0500 Heart rate 79 /min Jon Finch MD Work Phone: [facility] 06-18-2022 08:49-0500 SaO2% (BldA) [Mass fraction] 98 % Jon Finch MD Work Phone: [facility] 06-18-2022 08:49-0500 Systolic blood pressure 130 mm[Hg] Jon Finch MD Work Phone: [facility] Encounters Encounter Date Encounter Type Care Provider Facility Start: 11-02-2024 End: 11-02-2024 ambulatory Zaida Lancaster Facility:[facility] Start: 09-14-2024 End: 09-14-2024 ambulatory Chuyitajosselin Sheffield Facility:[facility] Start: 05-04-2024 End: 05-04-2024 ambulatory Zaida Lancaster Facility:[facility] Start: 04-05-2024 End: 04-05-2024 ambulatory James Aleman Facility:[facility] Start: 03-22-2024 End: 03-22-2024 ambulatory Zaida Lancaster Facility:[facility] Start: 03-08-2024 End: 03-08-2024 ambulatory Zaida Lancaster Facility:[facility] Start: 06-17-2023 Non-patient / Non-visit Dr. Zaida Lancaster Work Phone: [facility] Start: 06-17-2023 End: 06-17-2023 Admission to same day surgery center Dr. Zaida Lancaster Work Phone: [facility] Start: 06-17-2023 End: 06-17-[address] Zaida Lancaster Work Phone: [facility] Work Phone: Start: 05-17-2023 End: 05-17-[address] Zaida Lancaster Work Phone: [facility] Work Phone: Start: 04-25-2023 End: 04-25-2023 ambulatory [facility] Work Phone: Start: 04-25-2023 End: 04-25-2023 Patient encounter procedure [facility] Start: 10-18-2022 End: 10-18-2022 ambulatory JON FINCH Facility:[facility] Start: 10-18-2022 End: 10-18-2022 Patient encounter procedure Genaro Worrell MD Work Phone: Ophthalmology Comment on above: Diplopia (Primary Dx ); Drusen of optic disc, bilateral; Other localized visual field defect, bilateral Start: 07-02-2022 Telephone encounter Jon Perez Work Phone: Neurology Comment on above: Patient Update Start: 06-30-2022 End: 06-30-2022 ambulatory Jon Finch MD Work Phone: Neurology Start: 06-30-2022 E-mail encounter aman griffiths caregiver Jon Finch MD Work Phone: [facility] Start: 06-30-2022 End: 06-30-2022 Subsequent hospital visit by physician [facility] Work Phone: Cat Scan Comment on above: Diplopia [H53.2] Start: 06-18-2022 End: 06-19-2022 ambulatory JON FINCH Facility:[facility] Start: 06-18-2022 End: 06-18-2022 Patient encounter procedure Jon Finch MD Work Phone: Neurology Comment on above: Diplopia (Primary Dx ); Binocular vision disorder with diplopia Start: 04-19-2022 End: 04-19-2022 ambulatory [facility] Work Phone: Start: 04-19-2022 End: 04-19-2022 Patient encounter procedure [facility] Procedures Date Procedure Procedure Detail Performing Clinician Start: 06-17-[address] Zaida Lancaster Work Phone: Start: 10-18-2022 End: 10-18-2022 Visual field xm uni/bi w/interp extended exam Genaro Worrell MD Work Phone: Start: 06-30-2022 Ct angiography head w/contrast/noncontrast Jon Finch MD Work Phone: Start: 06-30-2022 Ct angiography neck w/contrast/noncontrast Jon Finch MD Work Phone: Plan of Treatment Date Care Activity Detail Author Start: 10-31-2025 Urine microalbumin profile DTa P,Tdap,Td Vaccine (2 - Td or Tdap) [facility] Start: 06-17-2023 Patient discharge [facility] Start: 03-04-2023 Influenza vaccination [facility] Start: 07-04-2022 DEPRESSION ASSESSMENT DEPRESSION ASS ESSMENT [facility] Start: 06-18-2022 End: 08-18-2022 ACETYLCHO R MOD AB [facility] Work Phone: Comment on above: Expected: 06/18/2022 , Expires: 08/18/2022 Start: 06-18-2022 End: 08-18-2022 ACETYLCHOLINE REC BINDING AB [facility] Work Phone: Comment on above: Expected: 06/18/2022 , Expires: 08/18/2022 Start: 06-18-2022 End: 08-18-2022 ACETYLCHOLINE REC BLOCKING AB [facility] Work Phone: Comment on above: Expected: 06/18/2022 , Expires: 08/18/2022 Start: 06-18-2022 End: 08-18-2022 Thyroxine (T4) free [Mass/volume] in Serum or Plasma [facility] Work Phone: Comment on above: Expected: 06/18/2022 , Expires: 08/18/2022 Start: 06-18-2022 End: 08-18-2022 Triiodothyronine (T3) [Mass/volume] in Serum or Plasma [facility] Work Phone: Comment on above: Expected: 06/18/2022 , Expires: 08/18/2022 Start: 06-18-2022 End: 08-18-2022 VOLTAGE GATED CA IGG [facility] Work Phone: Comment on above: Expected: 06/18/2022 , Expires: 08/18/2022 Start: 03-04-2022 Influenza vaccination INFLUENZA (#1) [facility] Start: 07-04-2021 DEPRESSION ASSESSMENT DEPRESSION ASS ESSMENT [facility] Start: 2021 Lipid 1996 panel - S jaz or Plasma Lipid Screening [facility] Start: 2021 LIPID SCREEN LIPID SCREEN [facility] Start: 2005 Urine microalbumin profile DTA P,TDAP,TD (1 - Tdap) [facility] Start: 2004 HEPATITIS C SCREENING HEPATITIS C SC REENING [facility] Start: 2004 HIV SCREENING HIV SCREENING [facility] Start: 1986 COVID-19 VACCINE (#1) COVID-19 VACCI NE (#1) [facility] Start: 1986 HEPATITIS B (1 of 3 - 3-dose series) HEPATITIS B (1 of 3 - 3-dose series) [facility] Start: 1986 Hepatitis B Vaccine (1 of 3 - 3-dose series) Hepatitis B Vaccine (1 of 3 - 3-dose series) [facility] End: 07-18-2023 CTA HEAD WO/W IVCON CTA HEAD WO/W IVCON Radiology Routine Diplopia Binocular vision disorder with diplopia 1 Occurrences starting 06/18/2022 until 07/18/2023 [facility] Work Phone: Comment on above: 1 Occurrences starti ng 06/18/2022 until 07/18/2023 End: 07-18-2023 CTA NECK W IVCON CTA NECK W IVCON Radiology Routine Diplopia Binocular vision disorder with diplopia 1 Occurrences starting 06/18/2022 until 07/18/2023 [facility] Work Phone: Comment on above: 1 Occurrences starti ng 06/18/2022 until 07/18/2023 Patient referral [facility] Immunizations Immunization Date Immunization Notes Care Provider Fa jessica 11-01-2015 tetanus toxoid, redu nelson diphtheria toxoid, and acellular pertussis vaccine, adsorbed [facility] Payers Date Payer Category Payer Self-pay [id number] Unknown [id number] 2021 Unknown [id number] 2021 Unknown [facility] [employer] [place] [employer] [id number] 2021-Present [id number] [place] [address] PPO [id number] Unknown [id number] Unknown [employer] [place] [id number] Unknown [id number] Unknown [id number] Unknown [id number] Unknown [id number] Unknown [id number] Unknown [id number] Unknown [id number] Social History Date Type Detail Facility Start: 11-01-2015 End: 06-02-2023 Tobacco smoking status NHIS Unknown if ever smoked [facility] Start: 1985 Sex Assigned At Male [facility] Start: 06-18-2022 Tobacco smoking stat us MSIS Never smoked tobacco [facility] Start: 06-18-2022 Tobacco use and exposure Smokeless tobacco non-user [facility] Start: 1985 Sex Assigned At Not on file [facility] Start: 06-18-2022 History of Social function [facility] Start: 06-18-2022 Tobacco use panel [facility] Adult Depression Screening Assessment 0 [facility] Goals Date Patient Goal Desired Activity /State Mental Status Date Assessment Result Facility 06-17-2023 Cognitive function Level Of Cons ciousness Awake;Appropriate [facility] Work Phone: 06-17-2023 Cognitive function Arousable To Voice/Nam e [facility] Work Phone: Clinical Notes 06-18-2022 to 10-18-2022 Genaro Worrell MD - 10/18/2022 9:08 AM EDTTelephone Encounter - Laverne Farris MA - 07/02/2022 10:00 AM ESTTelephone Encounter - Jon Finch MD - 07/02/2022 9:12 AM Jennifer Finch MD - 06/18/2022 9:00 AM EST Note Date & Type Note Facility 10-18-2022 Note HNO ID: [id number] Author: Genaro Worrell MD Service: ? Author Type: Physician Type: Progress Notes Filed: 10/18/2022 12:18 PM Note Text: Ming Figueroa is a 37 year old man who presents today for intermittent diplopia. The patient was referred by Dr. Jon Finch. As per patient and chart review, around spring he developed intermittent binocular horizontal diplopia. It often occurs while doing something physical and it will be hard to read his phone. It has lasted from minutes to an hour and goes away with rest in general (not specifically his eyes). It can occur from once a day to more recently once a month. The patient did not report a history of childhood strabismus, patching or eye alignment surgery, preceding head injury, or thyroid disease. The patient did not report fatigable ptosis, dysarthria, dysphonia, dysphagia, dyspnea, or fatigable weakness. Work up thus far has included CTA head AND neck and blood work (acetylcholine and thyroid panels - negative/normal). The patient's ophthalmic history is notable for optic disc drusen. Thorough review of the patient's medical, family, surgical and social history was performed along with medications, allergies, labs and imaging (if applicable). 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 He did have bilateral optic disc drusen fortunately without visual field defect. Optic nerve head drusen are laminated acellular concretions within the substance of the optic nerve. They often occur in small structurally-congested optic nerve heads and are often inherited in an autosomal dominant fashion with incomplete penetrance. It is estimated that optic disc drusen occur in 3.4 to 24 per 1,000 population, are bilateral in approximately 75%, and may be associated with progressive visual field defects (Shad et al. Surv Ophthalmol. 2002;47(6):515-32). He believes that his mother has optic disc drusen as well. His efferent exam showed full ocular motility with orthophoria in all directions of gaze tested. The frequency of the episodes has decrease, but I asked him to contact me if it returns so that I may see him back right away, with plan otherwise for ongoing monitoring with his primary eye doctor, including with annual dilated eye exams for his optic disc drusen. I otherwise recommended that he follow up as scheduled with his referring provider. I encouraged him to please contact me if I can be of any assistance in the future. Genaro Worrell MD 12:15 PM 10/18/2022 FOR ADMINISTRATIVE PURPOSES ONLY: My impression of this case is based upon an assessment of the the patient's subacute on chronic problems listed above that pose a threat to visual function. 62 minutes were spent on total patient care on the day of service that includes both jjav-pj-ehjn and [id number]-[id number]-face time. This time was separate from any of my time spent completing and interpreting the ancillary testing (such as OCT, fundus photos, visual jack) and sensorimotor exam, if applicable. This time was broken down into: 5 minutes reviewing the patient record before the visit, 20 minutes performing a medically appropriate neuro-ophthalmic history and exam (excluding time spent on the ancillary testing and sensorimotor exam, if applicable), 10 communicating results to the patient/family, 12 minutes counseling / educating the patient, 10 minutes documenting clinical information into the electronic health record of the patient, and 5 minutes coordinating care for the patient. I communicated with Dr. Jon Finch and Dr. Lancaster regarding the management of this patient. The assessment and plan were discussed extensively with the patient who was amenable and voiced understanding. [facility] 10-18-2022 History of Presen t illness Narrative Ming Figueroa is a 37 year old man who presents today for intermittent diplopia. The patient was referred by Dr. Jon Finch. As per patient and chart review, around spring he developed intermittent binocular horizontal diplopia. It often occurs while doing something physical and it will be hard to read his phone. It has lasted from minutes to an hour and goes away with rest in general (not specifically his eyes). It can occur from once a day to more recently once a month. The patient did not report a history of childhood strabismus, patching or eye alignment surgery, preceding head injury, or thyroid disease. The patient did not report fatigable ptosis, dysarthria, dysphonia, dysphagia, dyspnea, or fatigable weakness. Work up thus far has included CTA head & neck and blood work (acetylcholine and thyroid panels - negative/normal). The patient's ophthalmic history is notable for optic disc drusen. Thorough review of the patient's medical, family, surgical and social history was performed along with medications, allergies, labs and imaging (if applicable). 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 He did have bilateral optic disc drusen fortunately without visual field defect. Optic nerve head drusen are laminated acellular concretions within the substance of the optic nerve. They often occur in small structurally-congested optic nerve heads and are often inherited in an autosomal dominant fashion with incomplete penetrance. It is estimated that optic disc drusen occur in 3.4 to 24 per 1,000 population, are bilateral in approximately 75%, and may be associated with progressive visual field defects (Shad et al. Surv Ophthalmol. 2002;47(6):515-32). He believes that his mother has optic disc drusen as well. His efferent exam showed full ocular motility with orthophoria in all directions of gaze tested. The frequency of the episodes has decrease, but I asked him to contact me if it returns so that I may see him back right away, with plan otherwise for ongoing monitoring with his primary eye doctor, including with annual dilated eye exams for his optic disc drusen. I otherwise recommended that he follow up as scheduled with his referring provider. I encouraged him to please contact me if I can be of any assistance in the future. Genaro Worrell MD 12:15 PM 10/18/2022 FOR ADMINISTRATIVE PURPOSES ONLY: My impression of this case is based upon an assessment of the the patient's subacute on chronic problems listed above that pose a threat to visual function. 62 minutes were spent on total patient care on the day of service that includes both fsfq-ov-xbom and qcj-ytmu-sk-face time. This time was separate from any of my time spent completing and interpreting the ancillary testing (such as OCT, fundus photos, visual jack) and sensorimotor exam, if applicable. This time was broken down into: 5 minutes reviewing the patient record before the visit, 20 minutes performing a medically appropriate neuro-ophthalmic history and exam (excluding time spent on the ancillary testing and sensorimotor exam, if applicable), 10 communicating results to the patient/family, 12 minutes counseling / educating the patient, 10 minutes documenting clinical information into the electronic health record of the patient, and 5 minutes coordinating care for the patient. I communicated with Dr. Jon Finch and Dr. Lancaster regarding the management of this patient. The assessment and plan were discussed extensively with the patient who was amenable and voiced understanding. documented in this encounter [facility] 07-02-2022 Miscellaneous Notes Results sent to scanning July 02, 2022 9:12 AM 07/01/2022 Dr. Sorto eye exam: overall normal Jon Finch MD Staff, General Neurology Received eye exam from [facility] Placed on Dr. Finch desk for review. documented in this encounter [facility] 06-30-2022 Note HNO ID: [id number] Author: RT Penny(R) Service: ? 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 FALL SCREENING: Has the patient had 2 falls in the last year or 1 fall with injury or currently using an Ambulatory Assistive Device (Walker, Cane, Wheelchair, Crutches, etc.)? No PATIENT GENDER DATA: Male PATIENT RELEVANT IMPLANT DATA REVIEWED: Yes ALLERGIES: Reviewed and unchanged CONTRAST ALLERGY: NO. EXAM: CT -CONTRAST INDUCED NEPHROPATHY RISK FACTORS: Not applicable CREATININE: Creatinine Date Value Ref Range Status 06/18/2022 0.97 0.73 - 1.22 mg/dL Final Estimated Glomerular Filtration Rate Date Value Ref Range Status 06/18/2022 104 >=60 mL/min/1.73m? Final Comment: Estimated Glomerular Filtration Rate (eGFR) is calculated using the 2020 CKD-EPI creatinine equation. This equation utilizes serum creatinine, sex, and age as parameters. The creatinine assay has traceable calibration to isotope dilution-mass spectrometry. Refer to KDIGO guidelines for clinical interpretation. In patients with unstable renal function, e.g. those with acute kidney injury, the eGFR may not accurately reflect actual GFR. P.O.C.T. RESULTS: POC done: Yes, See Lab Tab June 30, 2022 TREATMENT: N/A PERIPHERAL IV DATA: Ambulatory: A peripheral IV was started in the Left antecubital site with a Angio cath: 18 gauge. RADIOLOGY DEPARTMENT: CT; Exam(s) Completed: Brain , CTA Brain , and CTA Neck SIGNATURE: RT Misti(R) PATIENT NAME: Ming Figueroa DATE: June 30, 2022 TIME: 2:21 PM [facility] 06-30-2022 History of Presen t illness Narrative Radiology Service Progress Note DATE OF SERVICE: June 30, 2022 TIME: 2:21 PM PATIENT IDENTITY VERIFICATION COMPLETED USING TWO (2) STANDARD IDENTIFIERS: Name and Date of confirmed by patient verbally. FALL SCREENING: Has the patient had 2 falls in the last year or 1 fall with injury or currently using an Ambulatory Assistive Device (Walker, Cane, Wheelchair, Crutches, etc.)? No PATIENT GENDER DATA: Male PATIENT RELEVANT IMPLANT DATA REVIEWED: Yes ALLERGIES: Reviewed and unchanged CONTRAST ALLERGY: NO. EXAM: CT -CONTRAST INDUCED NEPHROPATHY RISK FACTORS: Not applicable CREATININE: Creatinine Date Value Ref Range Status 06/18/2022 0.97 0.73 - 1.22 mg/dL Final Estimated Glomerular Filtration Rate Date Value Ref Range Status 06/18/2022 104 >=60 mL/min/1.73m Final Comment: Estimated Glomerular Filtration Rate (eGFR) is calculated using the 2020 CKD-EPI creatinine equation. This equation utilizes serum creatinine, sex, and age as parameters. The creatinine assay has traceable calibration to isotope dilution-mass spectrometry. Refer to KDIGO guidelines for clinical interpretation. In patients with unstable renal function, e.g. those with acute kidney injury, the eGFR may not accurately reflect actual GFR. P.O.C.T. RESULTS: POC done: Yes, See Lab Tab June 30, 2022 TREATMENT: N/A PERIPHERAL IV DATA: Ambulatory: A peripheral IV was started in the Left antecubital site with a Angio cath: 18 gauge. RADIOLOGY DEPARTMENT: CT; Exam(s) Completed: Brain , CTA Brain , and CTA Neck SIGNATURE: RT Misti(R) PATIENT NAME: Ming Figueroa DATE: June 30, 2022 TIME: 2:21 PM documented in this encounter [facility] 06-18-2022 Note HNO ID: [id number] Author: Jon Finch MD Service: ? Author Type: Physician Type: Progress Notes Filed: 06/18/2022 9:39 AM Note Text: General Neurology Outpatient Clinic - new patient evaluation Date: June 18, 2022 Patient Name: Ming Figueroa Referring physician: Zaida Lancaster MD ([place]) [address] [facility] [address] [place] [phone] Primary physician: Zaida Lancaster MD ([place]) [address] [facility] [address] [place] [phone] Reason for Evaluation: intermittent diplopia HPI: The pt is a 37yo Right handed male with hx of - HTN - HLD Presenting for evaluation of intermittent diplopia. Accompanied by his . Patient provides verbal permission for all medical information to be shared with his Per patient, he's been having intermittent binocular horizontal diplopia for the last year. No preceding illness, head trauma, or new medicines. He's never had similar symptoms in the past. The episodes typically lasts 10-15 min but he had a long one lasting about an hour as well. He denies vertigo or imbalance with it, just that his vision goes funny. He is always doing something when the episodes happen. If he stops the activity, the symptoms improve. If he pushes through with the activity, the symptoms will last longer while he's active. There is no positional component since it can happen both standing and sitting. He denies associated chest pain, palpitations, SOB, loss of vision. If he closes one eye, doesn't matter which, the vision improves. Episodes are unpredictable, no diurnal pattern. He can go weeks without an episode or it can happen daily for a few days back to back. He's not too bothered by it until he had the hour-long episode. His does have migraines and has odd auras and wonders if he may be too, though he's never had a headache with these spells. His has observed one of these spells and says she didn't see any abnormal eye movements. Patient was even able to tandem gait independently during a spell He denies tobacco, alcohol, or other drug use. 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 He's had ENT assessment recently, however, that was unrevealing. He denies history of known strabismus as a child OUTPATIENT MEDICATIONS No current outpatient medications on file prior to visit. No current facility-administered medications on file prior to visit. MEDICAL HISTORY No past medical history on file. SURGICAL HISTORY No past surgical history on file. SOCIAL HISTORY Social History Tobacco Use Smoking status: Never Smokeless tobacco: Never FAMILY HISTORY No family history on file. ALLERGIES ALLERGIES Allergen Reactions Amoxicillin Hives REVIEW OF SYSTEMS: No fevers, chills No chest pain No SOB No constipation, diarrhea No paresthesias No falls +chronic tinnitus PHYSICAL EXAM: BP 130/89 (BP Site: Left Arm, BP Position: Sitting, BP Cuff Size: Large Adult) Pulse 79 Ht 182.9 cm (6') Wt 95 kg (209 lb 8 oz) SpO2 98% BMI 28.41 kg/m? Head: Normocephalic, atraumatic. Neurological exam: Mental Status: Alert, oriented to person, place and time and Follows commands. Cranial Nerves: PERRL, visual jack intact to confrontation, extraocular movements intact, facial sensation intact, face symmetric, no facial droop or ptosis, hearing intact to finger rub bilaterally, no dysarthria, and shoulder shrug intact and symmetric. Able to sustain upward gaze without ptosis for 60 seconds, did have some blurred vision OD at about the 20 second pavan Motor: Right Upper: Left Upper: Deltoid: 5 Deltoid: 5 Triceps: 5 Triceps: 5 Biceps: 5 Biceps: 5 Skiver Box Toe: 5 Skiver Box Toe: 5 Finger abduction: 5 Finger abduction: 5 Finger adduction: 5 Finger adduction: 5 Right Lower: Left Lower: Iliopsoas: 5 Iliopsoas: 5 Knee flexor: 5 Knee flexor: 5 Knee extensor: 5 Knee extensor: 5 Dorsiflexion: 5 Dorsiflexion: 5 Plantarflexion: 5 Plantarflexion: 5 Able to count to >40 in 1 breath on three separate trials Motor Tone: Right Upper: Normal tone Left Upper: Normal tone Right Lower: Normal tone Left Lower: Normal tone Reflexes: 2/4 biceps, brachioradialis, patellars. Downgoing plantars. No clonus Sensation: intact BUE and BLE to touch, temperature, vibration, proprioception, pinprick Coordination: Finger-to- nose-finger intact bilaterally and Ipbr-zh-rbmv intact bilaterally. Gait: normal-based. Normal tiptoe, heel, tandem gait Romberg: neg ASSESSMENT: The pt is a 37 year old male with a history of HTN, HLD who presents with intermittent binocular horizontal diplopia. His neurological examination is essentially normal at this visit though he is also asymptomatic at present time. Given the association with exertion, differential includes: - neuromuscular junction disorder: though he has no evidence for fatigable weakness t (more content not included)... [facility] 06-18-2022 History of Presen t illness Narrative Images from the original note were not included. General Neurology Outpatient Clinic - new patient evaluation Date: June 18, 2022 Patient Name: Ming Figueroa Referring physician: Zaida Lancaster MD ([facility]) [address] [place] [address] [facility] [address] Primary physician: Zaida Lancaster MD ([facility]) [address] [facility] [address] [place] [address] Reason for Evaluation: intermittent diplopia HPI: The pt is a 37yo Right handed male with hx of - HTN - HLD Presenting for evaluation of intermittent diplopia. Accompanied by his . Patient provides verbal permission for all medical information to be shared with his Per patient, he's been having intermittent binocular horizontal diplopia for the last year. No preceding illness, head trauma, or new medicines. He's never had similar symptoms in the past. The episodes typically lasts 10-15 min but he had a long one lasting about an hour as well. He denies vertigo or imbalance with it, just that his vision goes funny. He is always doing something when the episodes happen. If he stops the activity, the symptoms improve. If he pushes through with the activity, the symptoms will last longer while he's active. There is no positional component since it can happen both standing and sitting. He denies associated chest pain, palpitations, SOB, loss of vision. If he closes one eye, doesn't matter which, the vision improves. Episodes are unpredictable, no diurnal pattern. He can go weeks without an episode or it can happen daily for a few days back to back. He's not too bothered by it until he had the hour-long episode. His does have migraines and has odd auras and wonders if he may be too, though he's never had a headache with these spells. His has observed one of these spells and says she didn't see any abnormal eye movements. Patient was even able to tandem gait independently during a spell He denies tobacco, alcohol, or other drug use. 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 He's had ENT assessment recently, however, that was unrevealing. He denies history of known strabismus as a child OUTPATIENT MEDICATIONS No current outpatient medications on file prior to visit. No current facility-administered medications on file prior to visit. MEDICAL HISTORY No past medical history on file. SURGICAL HISTORY No past surgical history on file. SOCIAL HISTORY Social History Tobacco Use Smoking status: Never Smokeless tobacco: Never FAMILY HISTORY No family history on file. ALLERGIES ALLERGIES Allergen Reactions Amoxicillin Hives REVIEW OF SYSTEMS: No fevers, chills No chest pain No SOB No constipation, diarrhea No paresthesias No falls +chronic tinnitus PHYSICAL EXAM: BP 130/89 (BP Site: Left Arm, BP Position: Sitting, BP Cuff Size: Large Adult) Pulse 79 Ht 182.9 cm (6') Wt 95 kg (209 lb 8 oz) SpO2 98% BMI 28.41 kg/m Head: Normocephalic, atraumatic. Neurological exam: Mental Status: Alert, oriented to person, place and time and Follows commands. Cranial Nerves: PERRL, visual jack intact to confrontation, extraocular movements intact, facial sensation intact, face symmetric, no facial droop or ptosis, hearing intact to finger rub bilaterally, no dysarthria, and shoulder shrug intact and symmetric. Able to sustain upward gaze without ptosis for 60 seconds, did have some blurred vision OD at about the 20 second pavan Motor: Right Upper: Left Upper: Deltoid: 5 Deltoid: 5 Triceps: 5 Triceps: 5 Biceps: 5 Biceps: 5 Skiver Box Toe: 5 Skiver Box Toe: 5 Finger abduction: 5 Finger abduction: 5 Finger adduction: 5 Finger adduction: 5 Right Lower: Left Lower: Iliopsoas: 5 Iliopsoas: 5 Knee flexor: 5 Knee flexor: 5 Knee extensor: 5 Knee extensor: 5 Dorsiflexion: 5 Dorsiflexion: 5 Plantarflexion: 5 Plantarflexion: 5 Able to count to >40 in 1 breath on three separate trials Motor Tone: Right Upper: Normal tone Left Upper: Normal tone Right Lower: Normal tone Left Lower: Normal tone Reflexes: 2/4 biceps, brachioradialis, patellars. Downgoing plantars. No clonus Sensation: intact BUE and BLE to touch, temperature, vibration, proprioception, pinprick Coordination: Finger-to- nose-finger intact bilaterally and [id number]-[id number] intact bilaterally. Gait: normal-based. Normal tiptoe, heel, tandem gait Romberg: neg ASSESSMENT: The pt is a 37 year old male with a history of HTN, HLD who presents with intermittent binocular horizontal diplopia. His neurological examination is essentially normal at this visit though he is also asymptomatic at present time. Given the association with exertion, differential includes: - neuromuscular junction disorder: though he has no evidence for fatigable weakness today and symptoms do not follow typical diurnal pattern - vascular cause: possible vertebrobasilar involvement given that localization of eye movements is to the brain stem, though would have expected other associated symptoms too Can also consider an acephalgic migraine phenomenon given the length and stereotype PLAN: - myasthenia labs, thyroid function labs, CK - CTA H&N to assess patency of vasculature - consider referral to neuro-ophthalmology - if benign evaluation, treat as acephalgic migraines - f/u pending above I spent a total of 45 minutes on the date of the service which included preparing to see the patient, [id number] patient care, completing clinical documentation, obtaining and/or reviewing separately obtained history, performing a medically appropriate examination, counseling and educating the patient/family/caregiver, and ordering medications, tests, or procedures. Jon Finch MD Staff, General Neurology Pager: [phone] CC: Referring Physician: Zaida Lancaster MD ([facility]) [address] [address] PCP: Zaida Lancaster MD () [facility] [address] [place] [phone] documented in this encounter [facility] Discharge summary Note Date/Time June 17, 2023 8:09am [facility] Medical Records Department [address] [place] [address] Instructions for Home/Discharge Instructions 06/17/23 0808 MR#: [id number] Acct: [id number] Name: MING FIGUEROA Rep #:[id number] : 1985 38 From: Trey Perez PCP: Dr. Zaida Lancaster MD Status:[facility] Discharge Instructions Diet Discharge Diet: No restrictions Activity Discharge Activity: May Shower May shower in (days): 1 Ice area for (Minutes): 20 Dressing / Incision Call your doctor if your incision/area has: Increased Pain/ Swelling, Increased Redness, Foul Smelling Discharge and Swelling at the incision site Call your doctor if you observe: Fever of 101 or Higher Remove Dressing in: do not remove dressing (Dermabond (surgical glue) expected to dissolve spontaneously within 7 to 10 days postop using regular showering) Cleanse incision/area with: Soap & Water Follow Up Care Please Follow Up With: Trey Yoon MD When: 2 weeks postop Test Results: Test results from this visit will be discussed in further detail at your follow-up appointment, if applicable. Discharge Plan Admission Primary Reason for Your Visit: Excision of right thigh mass Attending Provider: Trey Yoon Primary Care Provider: Zaida Lancaster Discharge Orders/Prescriptions Prescriptions: Continued rosuvastatin 10 mg tablet 10 mg PO QHS Patient Comments: take 1 tablet by mouth at bedtime lisinopril 10 mg tablet 10 mg PO DAILY Patient Comments: take 1 tablet by mouth once daily escitalopram oxalate 10 mg tablet 10 mg PO DAILY Patient Comments: take 1 tablet by mouth once daily Referrals / Follow Up: Zaida Lancaster MD [Primary Care Provider] - Disposition Disposition (needs filled in before D/C Order can be placed): Home, Self Care 06/17/23 0810<Electronically signed by Trey Yoon MD>Trey Yoon MD CC: Dr. Zaida Lancaster MD ~ Signed [facility] Work Phone: Evaluation noteNo assessment information available [facility] Work Phone: Evaluation note* Diagnosis Diplopia- Primary Binocular vision disorder with diplopia Diplopia documented in this encounter [facility] note* Diagnosis Diplopia- Primary Drusen of optic disc, bilateral Other localized visual field defect, bilateral documented in this encounter [facility] note* Diagnosis Diplopia Binocular vision disorder with diplopia Diplopia documented in this encounter [facility] note* Diagnosis Onset Date Resolution Status Lipoma of right thigh acute [facility] Work Phone: History and physical note Author Trey Yoon [facility] June 17, 2023 7:33am Note Date/Time June 17, 2023 7:33am [facility] Medical Records Department [address] [place] [address] History & Physical Exam 06/17/23 8352 MR#: [id number] Acct: [id number] Name: MING FIGUEROA Rep #:[id number] : 1985 38 From: Trey Perez PCP: Dr. Zaida Lancaster MD Status:[facility] Location: [place] [address] History and Physical Date of Admission: 06/17/23 MR#: [id number] Acct: [id number] Name: MING FIGUEROA Rep #: [id number] : 1985 Provider: Dr. 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 Trey Yoon MD) Depression High cholesterol HTN (hypertension) Surgical History (Updated 05/17/23 @ 08:35 by Lazara Lagos) S/P arthroscopic knee surgery S/P hernia repair Family History (Updated 05/17/23 @ 08:36 by Lazara Lagos) Mother Breast cancer HypertensionGrandfather Bleeding disorder HypertensionGrandmother Breast cancer HypertensionUncle Cancer lung Social History (Updated 05/17/23 @ 08:36 by Lazara Lagos) Smoking Status: Never smoker alcohol intake: current HPI HPI HPI: Patient is a 37-year-old male who presents for thigh lipoma. He is referred from Dr. Lancaster. He states that he first noticed this issue about a month ago as he was simply rubbing his thigh. He denies any pain or symptoms. He raised his concern to Dr. Lancaster and she informed it was likely a lipoma and recommended he consider removal for the potential for growth and eventual discomfort. For his part, Mr. 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 He confirms that he has not had any prior such lesions and denies any drainage or redness from the present area of concern. Mr. Figueroa takes medications only for diagnoses of high blood pressure, high cholesterol, and depression. He does not have any prescriptions for blood thinners. There is no known history of allergies to local anesthetic. ROS General General: No weight change, appetite, fatigue, colon cancer, breast cancer or weakness HEENT HEENT: No difficulty swallowing, eye injury, eye surgery, swollen glands or hoarseness Endo Endocrine: No thyroid disease, diabetes mellitus, thyroid cancer, Hair loss, heat intolerance or cold intolerance Skin Skin: No rash or changing moles Breast Breast: No left breast lump, right breast lump, nipple discharge, breast pain, abnormal mammogram, abnormal US or breast enlargement Musc Musculoskeletal: No back problems, arthritis, rheumatoid arthritis, gout or joint pain Cardio Cardiovascular: No murmur, pacemaker, heart disease, atrial fibrillation, high blood pressure, heart attack, heart stent, palpitations, shortness of breat withexertion or chest pain Psych Psychiatric: No depression, anxiety or hearing voices Resp Respiratory: No shortness of breath, No sleep apnea, No cough, No COPD, No asthma, No emphysema and No wheezing Gastro Gastrointestinal: No abdominal pain, No nausea or vomiting, No diarrhea, No constipation, No blood in stool, No acid reflux, No hemorrhoids, No ulcers, No gallbladder problem and No black,tarry stools Sudhakar Hematologic: No blood thinners, No blood disorders, No bleeding, No anemia and No blood clots Neuro Neurologic: No system reviewed and no additional complaints, except as documented, No as per HPI, No abnormal gait, No abnormal hearing, No abnormal movements, No abnormal speech, No behavioral changes, No burning sensations, No confusion, No convulsions, No disequilibrium, No dizziness, No localized weakness, No frequent falls, No headache(s), No lack of coordination, No loss ofvision, No memory loss, No numbness, No other visual disturbances, No radicular pain, No restless legs, No sensory deficit, No syncope, No tingling, No tremor(s), No weakness and No other Exam Const General: cooperative, healthy appearing, comfortable and no acute distress Orientation: alert, awake and oriented x3 Resp Effort & Inspection: normal respiratory effort Extrem Other: Right inner thigh soft, subcutaneous mass estimated at 4 cm in diameter by palpation. Ultrasound is applied to the area and patient has a circumscribed, hypoechoic area with some internal texture suggesting probable lipoma. This area is located just deep to the dermis and at its greatest depth extends only 1cm. It measures approximately 3 x 4 cm. Assessment and Plan Assessment and Plan (1) Lipoma of right thigh: Status: Acute Comment: This is a 37-year-old male who presents for incidentally noted right thigh lipomatous mass that is presently asymptomatic. 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 On exam this is a very superficial, semimobile mass approximately 4 cm in diameter that is located on the inner posterior aspect of the proximal thigh. Given this sensitive location I have recommended we plan for excision under MAC sedation inthe OR to maximize patient's comfort. 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 Mr. Figueroa wishes to get a little further through the harvest before he proceeds with this excision but plans to schedule today. Plan: Plan for excision of right thigh lipoma under MAC sedation at first mutually available date. I have examined the patient and the H&P has been reviewed. There are no clinicalchanges since date of exam. Procedure and post procedure expectations were reviewed. Patient and his spouse had a few questions regarding activity restrictions which were answered. Proceed to the operating room for excision ofright thigh lipoma under MAC sedation. 06/17/23 8433 <Electronically signed by Trey Yoon MD> Cosigner Signature (if applicable): CC: Dr. Zaida Lancaster MD; Dr. Trey Yoon MD~ Signed [facility] Work Phone: Reason for Referral Specialty Diagnoses / Procedures Referred By Contac t Referred To Contact CT IMAGING Diagnoses Diplopia Binocular vision disorder with diplopia Procedures CTA NECK W IVCON CT ANGIOGRAPHY NECK W/CONTRAST/NONCONTRAST Jon Finch MD [id number] Imaging Referral ID Status Reason Start Date Expiration Date Visits Requested Visits Authorized [id number] Authorized Auto-Generat ed Referral 07/18/2023 1 1 Specialty Diagnoses / Procedures Referred By Contac t Referred To Contact CT IMAGING Diagnoses Diplopia Binocular vision disorder with diplopia Procedures CTA HEAD WO/W IVCON CT ANGIOGRAPHY HEAD W/CONTRAST/NONCONTRAST Jon Finch MD [id number] Imaging Referral ID Status Reason Start Date Expiration Date Visits Requested Visits Authorized [id number] Authorized Auto-Generat ed Referral 07/18/2023 1 1 Specialty Diagnoses / Procedures Referred By Contac t Referred To Contact CT IMAGING Diagnoses Diplopia Binocular vision disorder with diplopia Procedures CTA NECK W IVCON CT ANGIOGRAPHY NECK W/CONTRAST/NONCONTRAST Jon Finch MD [id number] [place] [address] Referral ID Status Reason Start Date Expiration Date V isits Requested Visits Authorized [id number] Closed Auto-Generate d Referral 06/18/2022 07/18/2023 1 1 Specialty Diagnoses / Procedures Referred By Contac t Referred To Contact CT IMAGING Diagnoses Diplopia Binocular vision disorder with diplopia Procedures CTA HEAD WO/W IVCON CT ANGIOGRAPHY HEAD W/CONTRAST/NONCONTRAST Jon Finch MD [address] [place] [address] [place] [address] Referral ID Status Reason Start Date Expiration Date V isits Requested Visits Authorized [id number] Closed Auto-Generate d Referral 06/18/2022 07/18/2023 1 1 Summary Purpose Family History No Family History Records Found Relationship Condition Age at Onset Recorded Date/T virgilio mother Malignant neoplasm of breast Unknown Hypertension Unknown grandfather Hemorrhagic disorder Unknown grandmother Malignant neoplasm of breast Unknown uncle Malignant neoplasm Unknown Advance Directives No Advanced Directives Records Found Advance Directive Response Recorded Date/ Time Living Will No June 02 023 3:19pm Power of Nutrition Therapist No June 02, 2023 3:19pm Chief Complaint and Reason for Visit Chief Complaint LIPOMA ON THIGH Excision, Lipoma right inner thigh Excision, Lipoma right inner thigh Reason for Visit Lipoma of right thig h Additional Source Comments Goals (unrecognized section and content) Goals may be documented in a n alternate sectionGoals may be documented in an alternate section Source Comments (unrecognize d section and content) In the event this informatio n is protected by the Federal Confidentiality of Alcohol and Drug Abuse Patient Records regulations: The Federal rules restrict any use of the information to criminally investigate or prosecute any alcohol or drug abuse patient.[facility] the event this information is protected by the Federal Confidentiality of Alcohol and Drug Abuse Patient Records regulations: The Federal rules restrict any use of the information to criminally investigate or prosecute any alcohol or drug abuse patient.[facility] the event this information is protected by the Federal Confidentiality of Alcohol and Drug Abuse Patient Records regulations: The Federal rules restrict any use of the information to criminally investigate or prosecute any alcohol or drug abuse patient.[facility] the event this information is protected by the Federal Confidentiality of Alcohol and Drug Abuse Patient Records regulations: The Federal rules restrict any use of the information to criminally investigate or prosecute any alcohol or drug abuse patient.[facility] the event this information is protected by the Federal Confidentiality of Alcohol and Drug Abuse Patient Records regulations: The Federal rules restrict any use of the information to criminally investigate or prosecute any alcohol or drug abuse patient.[facility] Reason for Visit (unrecogniz ed section and content) Reason Comments New Patient Reason Comments Patient Update Reason Comments Diplopia Evaluation Visual Field Specialty Diagnoses / Procedures Referred By Kari hook Referred To Contact Ophthalmology Diagnoses Diplopia Procedures CONSULT TO OPHTHALMOLOGY OFFICE/OUTPATIENT NEW HIGH MDM 60-74 MINUTES Jon Finch MD [address] [place] [address] Referral ID Status Reason Start Date Expiration Date Visits Requested Visits Authorized [id number] Pending Review PCP Requested Referral 2 06/30/2023 [address] Specialty Diagnoses / Procedures Referred By Kari hook Referred To Contact CT IMAGING Diagnoses Diplopia Binocular vision disorder with diplopia Procedures CTA NECK W IVCON CT ANGIOGRAPHY NECK W/CONTRAST/NONCONTRAST Jon Finch MD [address] [place] [address] [place] [address] Referral ID Status Reason Start Date Expiration Date V isits Requested Visits Authorized [id number] Closed Auto-Generate d Referral 06/18/2022 07/18/2023 1 1 Care Teams (unrecognized sec tion and content) Intellectual Property Legal Assistant Relationship Specialty Start Date End Date LatishaZaida harding [address] [facility] [address] [place] [address] PCP - General Family Medicine 06/05/22 Intellectual Property Legal Assistant Relationship Specialty Start Date End Date LatishaZaida harding [address] [facility] [address] [place] [address] PCP - General Family Medicine 06/05/22 Intellectual Property Legal Assistant Relationship Specialty Start Date End Date Zaida Lancaster [address] [facility] [address] [place] [address] PCP - General Family Medicine 06/05/22 Intellectual Property Legal Assistant Relationship Specialty Start Date End Date Zaida Lancaster [address] [facility] [address] [place] [address] PCP - General Family Medicine 06/05/22 Team Status: Active Member Role Status Dates Dr. Zaida Lancaster MD Family Provider Active Dr. Zaida Lancaster MD Primary Care Provider Active Team Status: Inactive Member Role Status Dates Dr. Zaida Lancaster MD Primary Care Provider, Attendin g Provider Active Intellectual Property Legal Assistant Relationship Specialty Start Date End Date Zaida Lancaster [address] [facility] [address] [place] [address] PCP - General Family Medicine 06/05/22 Team Status: Inactive Member Role Status Dates Dr. Zaida Lancaster MD Primary Care Provider, Referrin g Provider Active Dr. Trey Yoon MD Attending Provider Active Team Status: Active Member Role Status Dates Dr. Zaida Lancaster MD Primary Care Provider Active Dr. Trey Yoon MD Attending Provide r, Referring Provider, Other Provider Active Team Status: Inactive Member Role Status Dates Dr. Zaida Lancaster MD Primary Care Provider Active Dr. Trey Yoon MD Attending Provider, Referring P pancho Active (unrecognized sect ion and content) No Status Records FoundNo Status Records FoundNo Status Records Found INFORMATION SOURCE (unrecogn ized section and content) DATE CREATED AUTHOR 06/27/2022 [facility] DATE CREATED AUTHOR AUTHOR'S ORGANIZ ATION 10/18/2022 [facility] DATE CREATED AUTHOR AUTHOR'S ORGANIZ ATION 11/07/2024 [facility] FOR RECORDS PERTAINING TO PATIENTS WHO ARE OR HAVE BEEN ENROLLED IN A CHEMICAL DEPENDENCY/SUBSTANCEABUSE PROGRAM, SOME INFORMATION MAY BE OMITTED. This clinical summary was aggregated from multiple sources. Caution should be exercised in using it in the provision of clinical care. This summary normalizes information from multiple sources, and as a consequence, information in this document may materially change the coding, format and clinical context of patient data. In addition, data may be omitted in some cases. CLINICAL DECISIONS SHOULD BE BASED ON THE PRIMARY CLINICAL RECORDS. [facility] [employer] [facility] provides no warranty or guarantee of the accuracy or completeness of information in this document.
[2025-05-27 11:36] LABS: Cholesterol 145 mg/dL (<=200); Low Density Lipoprotein Calc. 79 mg/dL; Triglycerides 126 mg/dL; Very Low Density Lipoprotein 25 mg/dL (5-40); cholesterol:hdl ratio screen 3.33
== END | disposition home or self-care (01) ==
LOC: MTLAB 07:02
PROVIDERS: PCP Family Medicine; Referring Provider Family Medicine; Visit Provider Family Medicine
DX: E78.5 Hyperlipidemia, unspecified (principal)
CPT/HCPCS: 36415; 80061